=== PATIENT | male | born 1955 | race African-American/Black ===

== ENCOUNTER 2016-08-07 10:34 | Inpatient (IN) | payer MEDICARE, MEDICAID ==
[~2016-08-07] VITALS: Ht 170.2 cm; Wt 80.3 kg
[~2016-08-07 10:34] MED LIST: DIAZEPAM10 MG PO; HYDR-2666 PO; ONDA4TAB10 SL; OXYC-250 PO; TRAZ100T12 PO
--- NOTE | 2016-08-07 11:28 | ACF ---
Admission Forms Criteria CARDIOLOGY GRG Clinical Indications for Admission to Inpatient Care ( Place 'X' for any and all applicable criteria): Hospital admission is needed for appropriate care of the patient because of ANY ONE of the following (1): [ ] I. Hemodynamic instability as indicated by ALL of the following (1)(2)(3) (4)(5) [ ]a) Vital signs or other findings not as expected for chronic patient condition or baseline [ ]b) Instability indicated by ANY ONE of the following: [ ]i) Hypotension [ ]ii) Symptomatic Tachycardia unresponsive to treatment ( e.g., analgesia, fluids, sedation as indicated) [ ]iii) Inadequate perfusion indicated by ANY ONE of the following: [ ] 1) Lactic acidosis (> 2 mmol/L) [ ] 2) New abnormal capillary refill (> 3 seconds) [ ] 3) Reduced urine output [ ] 4) New altered mental status [ ]iv) Orthostatic vital sign changes unresponsive to treatment (e.g., fluids) [ ]v) IV inotropic or vasopressor medication required to maintain adequate blood pressure or perfusion [ ] II. Severe heart failure as indicated by ANY ONE of the following(17)(18) [ ]a) Respiratory distress [ ]b) Hypotension [ ]c) Anasarca (refractory to outpatient therapy) [ ]d) Cardiac arrhythmias of immediate concern [ ]e) Myocardial ischemia [ ] III. Cardiac arrhythmias or findings of immediate concern indicated by ANY ONE of the following (19)(20): [ ] a) Heart rhythms that are inherently dangerous or unstable indicated by ANY ONE of the following (21)(22)(23): [ ] i) Resuscitated ventricular fibrillation or cardiac arrest [ ] ii) Ventricular escape rhythm [ ] iii) Sustained ventricular tachycardia (30 seconds or more of ventricular rhythm at greater than 100 beats per minute) [ ] iv) Nonsustained ventricular tachycardia and ANY ONE of the following: [ ] 1) Suspected cardiac ischemia as cause or consequence of ventricular tachycardia [ ] 2) In setting of acute myocarditis [ ] b) Unstable cardiac conduction defects indicated by ANY ONE of the following(23)(24)(25) [ ] i) Type II second-degree atrioventricular block [ ]ii) Third-degree atrioventricular block [ ]iii) New-onset left bundle branch block with suspected myocardial ischemia [ ]c) Any heart rhythm and ANY ONE of the following (21)(22)(26)(27) (28) [ ] i) Continuous long-term ECG monitoring needed (e.g., initiation of drug requiring monitoring for more than 24 hours) [ ] ii) Patient has automatic implanted cardioverter defibrillator that is repeatedly firing, malfunctioning, or in need of immediate adjustment of settings beyond the scope of ambulatory or observation care [ ]d) Heart rhythms of concern due to ANY ONE of the following: [ ] i) Hypotension [ ] ii) Respiratory distress [ ] iii) Association with other significant symptoms (e.g., bradycardia with syncope or ongoing dizziness, supraventricular tachycardia with chest pain (14)(15)(17) [ ] IV. Monitoring for cardiac contusion beyond the scope of observation care needed [A](30)(31)(32) [ ] V. Surgical or device complication (e.g., valve replacement complication , pacemaker dysfunction) (35)(41)(44)(45)(46) [ ] . Inpatient palliative care needed. [B](49) Also use Inpatient Palliative Care Criteria [ ] VII. Nonbacterial thrombotic (marantic) endocarditis (36)(43)(47)(48) [X] VIII. Cardiology condition, symptom, or finding for which emergency and observation care has failed or are not considered appropriate. [ ] IX. Acute valvular disease requiring inpatient as indicated by ANY ONE of the following (41) [ ]a) Acute valvular regurgitation (42) [ ]b) Noninfectious valvulitis (43) [ ]c) Obstructive valve thrombosis [ ]d) Paravalvular leak [ ]e) Other significant valvular disorder remaining after emergency or observation level of care (as appropriate) [ ]X. Pericardial disease requiring inpatient treatment as indicated by ANY ONE of the following (33)(34)(35)(36)(37) [ ]a) Suspected tamponade (38)(39)(40) [ ]b) Hemopericardium [ ]c) Other significant pericardial disorder remaining after emergency or observation level of care (as appropriate) [ ] XI. Cardiac ischemia beyond scope of emergency and observation care. [ ] XII. Hypertension requiring inpatient treatment as indicated by ANY ONE of the following (6)(7)(8) [ ]a) SBP greater than 220 mm Hg or DBP greater than 120 mmHg despite treatment [ ]b) SBP greater than 140 mm Hg or DBP greater than 100 mm Hg with evidence of acute end organ damage as indicated by ANY ONE of the following [ ] i) Encephalopathy [ ] ii) Acute renal failure as indicated by new onset of ANY ONE of the following (9)(10)(11)(12)(13) [ ]1) 3-fold rise in serum creatinine from baseline [ ]2) Serum creatinine greater than 4 mg/dL ( 354 micromoles/L) with acute rise greater than 0.5 mg/dL (44.2 micromoles/L) [ ]3) Reduction of more than 75% in estimated glomerular filtration rate from baseline [ ]4) Estimated glomerular filtration rate less than 35 mL/min/1.73m2 (0.59 mL/sec/1.73m2) in child up to 18 years of age [ ]5) Cessation of urine output indicated by ALL of the following [ ]A. Adequate volume status [ ]B. Inadequate urine output as indicated by ANY ONE of the following [ ]a. Urine output less than 0.3 mL/kg/hr for 24 hours [ ]b. Anuria (urine output less than 0.1 mL/kg/hr) for 12 hours [ ] iii) Aortic dissection [ ] iv) Myocardial Ischemia [ ] v) Left ventricular heart failure [ ]vi) Retinal Hemorrhage [ ]vii) Other significant finding [ ]c) Hypertension in child requiring inpatient treatment as indicated by ALL of the following(14)(15)(16) [ ] i) Outpatient treatment not effective, not available, or not appropriate [ ]ii) SBP or DBP greater than 95th percentile for age [ ]iii) Evidence of acute end organ damage as indicated by ANY ONE of the following [ ]1) Altered mental status [ ]2) Acute renal failure as indicated by new onset of ANY ONE of the following(9)(10)(11)(12)(13) [ ]A. 3-fold rise in serum creatinine from baseline [ ]B. Serum creatinine greater than 4 mg/dL (354 micromoles/L) with acute rise greater than 0.5 mg/dL (44.2 micromoles/L) [ ]C. Reduction of more than 75% in estimated glomerular filtration rate from baseline [ ]D. Estimated glomerular filtration rate less than 35 mL/min/1.73m2 (0.59 mL/sec/1.73m2) in child up to 18 years of age [ ]E. Cessation of urine output indicated by ALL of the following [ ]a. Adequate volume status [ ]b. Inadequate urine output as indicated by ANY ONE of the following [ ]i) Urine output less than 0.3 mL/kg/hr for 24 hours [ ]ii) Anuria ( urine output less than 0.1 mL/kg/hr) for 12 hours [ ]3) Severe headache [ ]4) Visual disturbance [ ]5) Retinal hemorrhage [ ]6) Other significant finding [ ]XIII. Complications of transplanted heart indicated by ANY ONE of the following(61): [ ]a) Acute graft rejection requiring inpatient management (eg, intravenous immunosuppression)(62)(63) [ ]b) Acute graft heart failure indicated by ANY ONE of the following(64): [ ]i) Hemodynamic instability [ ]ii) Cardiac arrhythmias of immediate concern [ ]iii) Pulmonary edema that is very severe (eg, mechanical ventilation needed, imminent or likely, need for 100% oxygen to keep oxygen saturation above 90%) [ ]iv) Pulmonary edema that is persistent as indicated by ALL of the following: [ ]1) New need for oxygen therapy to keep oxygen saturation above 90% (or increased FiO2 need from baseline) [ ]2) Has not improved sufficiently with emergency department or observation care IV diuretics or other heart failure treatments[E] [ ]v) Altered mental status that is severe or persistent [ ]vi) Increased creatinine (new on laboratory test) with reduction of more than 50% in estimated glomerular filtration rate from baseline [ ]vii) Progressively (ongoing) rising creatinine (known from past laboratory test) with reduction of more than 25% in estimated glomerular filtration rate from baseline [ ]viii) Acute renal failure [ ]ix) Acute peripheral ischemia (eg, examination shows pulseless, cool, mottled, or cyanotic extremity) [ ]x) Pulmonary artery catheter monitoring needed [ ]xi) Other sign or symptom of heart failure requiring inpatient treatment (ie, too severe or not responsive to outpatient and observation care treatment) [ ]c) Infection requiring inpatient management (eg, Hemodynamic instability, need for intravenous antimicrobial treatment)(66)(67)(68)(69)(70) [ ]d) Cardiac allograft vasculopathy requiring inpatient management ( eg evidence of cardiac ischemia)(71) [ ]e) Other complication of transplanted heart (eg, stroke, severe pulmonary hypertension, severe valvular dysfunction) requiring inpatient management(72) The original [facility] content created by [facility] has been revised. The portions of the content which have been revised are identified through the use of italic text or in bold, and [facility] has neither reviewed nor approved the modified material. All other unmodified content is copyright [facility]. Please see references footnoted in the original [facility] edition 2016 Admission Criteria Met?: Yes DHARMESH LONG Aug 07, 2016 11:28
[2016-08-07] MEDS ORDERED: MORPHINE SULFATE 10 MG/ML VIAL. IV ONE (11:30)
[2016-08-07] MEDS ORDERED: ASPIRIN 325 MG TABLET PO ONE (11:30)
--- NOTE | 2016-08-07 11:38 | RAD ---
Exam: AP portable chest. History: Chest pain beginning this morning, smoking history. Comparison: 01/13/2014. Findings: The heart and mediastinal structures are within normal limits for size. Lungs are without infiltrate. No pneumothorax or pleural effusion is appreciated. Old granulomatous disease of the chest is noted. Impression: 1. No acute cardiopulmonary process.
[2016-08-07 11:50] LABS: BASO % 0 % (0-3); EOS % 2 % (0-3); HEMATOCRIT 41.1 % (39.0-53.0); HEMOGLOBIN 13.7 g/dL (13.0-17.5); LYMPH # 1.1 x10^3/uL (1.0-4.8); LYMPH % 10 % (24-48); MEAN CORPUSCULAR HEMOGLOBIN 31 pg (25-35); MEAN CORPUSCULAR HGB CONC 33 g/dL (31-37); MEAN CORPUSCULAR VOLUME 93 fL (79-100); MONO % 6 % (0-9); NEUT % 82 % (31-73); PLATELET COUNT 228 x10^3/uL (140-400); RED BLOOD COUNT 4.43 x10^6/uL (4.30-5.70); RED CELL DISTRIBUTION WIDTH 13.3 % (11.5-14.5); WHITE BLOOD COUNT 10.8 x10^3/uL (4.0-11.0)
--- NOTE | 2016-08-07 11:54 | PHYS DOC ---
Past Medical History Past Medical History: Other Additional Past Medical Histor: chronic back pain Past Surgical History: Lumbar Laminectomy, Other Additional Past Surgical Histo: back surgery- hardware, inguinal hernia Alcohol Use: Rarely Drug Use: Marijuana Adult General Chief Complaint Chief Complaint: Neck Pain HPI HPI Patient is a 61 year old male with history of lumbar laminectomy done in April 2016 presents today with an 8 out of 10 right lateral neck pain, 8/10 sharp bilateral chest pain, and left groin pain that began yesterday around 8 PM when he went to bed. Patient denies any known injury. He states his pain is worse on the neck when he moves his neck [id number]. Patient denies his chest pain radiating to or from the neck. Patient denies any shortness of breath. Patient states he has history of left inguinal hernia which has been repaired twice before. Patient states he has no PCP. He states he follows up with a neurosurgeon at [facility] that did his back. He states he is currently on oxycodone, trazodone, and baclofen, which she took last night. He states his pain to the neck chest and groin has been exacerbated by lifting laundry as well as taking care of his son with cerebral palsy. Patient has been very insistent on getting pain medicine. Review of Systems Review of Systems Constitutional: Denies fever or chills [] Eyes: Denies change in visual acuity, redness, or eye pain [] HENT: Denies nasal congestion or sore throat [] Respiratory: Denies cough or shortness of breath [] Cardiovascular: Bilateral chest pain GI: Denies abdominal pain, nausea, vomiting, bloody stools or diarrhea [] : Left groin pain Musculoskeletal: Right lateral neck pain Integument: Denies rash or skin lesions [] Neurologic: Denies headache, focal weakness or sensory changes [] Endocrine: Denies polyuria or polydipsia [] Current Medications Current Medications Current Medications Medications (Trade) Dose Ordered Sig/Michael Start Time Stop Time Status Last Admin Dose Admin Aspirin (Prem Aspirin) 325 mg 1X ONCE 08/07/16 11:30 08/07/16 11:31 DC 08/07/16 11:45 325 MG Morphine Sulfate 5 mg 1X ONCE 08/07/16 11:30 08/07/16 11:31 DC 08/07/16 11:46 5 MG Allergies Allergies Allergies Coded Allergies Type Severity Reaction Last Updated Verified No Known Drug Allergies 01/13/14 No Physical Exam Physical Exam Constitutional: Well developed, well nourished, no acute distress, non-toxic appearance. [] HENT: Normocephalic, atraumatic, bilateral external ears normal, oropharynx moist, no oral exudates, nose normal. [] Eyes: PERRLA, EOMI, conjunctiva normal, no discharge. [] Neck: Normal range of motion, paraspinal muscle tenderness on palpation of the right lateral cervical spine, no midline tenderness to the cervical spine, supple, no stridor. [] Cardiovascular:Heart rate regular rhythm, no murmur [] Lungs & Thorax: Bilateral breath sounds clear to auscultation [] Abdomen: Bowel sounds normal, soft, no tenderness, no masses, no pulsatile masses. [] Male exam: Groin pain difficult because patient will not get up and stand for exam. No obvious abnormalities noted on physical assessment of the groin. Skin: Warm, dry, no erythema, no rash. [] Back: No tenderness, no CVA tenderness. [] Extremities: No tenderness, no cyanosis, no clubbing, ROM intact, no edema. [] Neurologic: Alert and oriented X 3, normal motor function, normal sensory function, no focal deficits noted. [] Psychologic: Affect normal, judgement normal, mood normal. [] Current Patient Data Vital Signs Vital Signs Date Time Temp Pulse Resp B/P Pulse Ox O2 Delivery O2 Flow Rate FiO2 08/07/16 10:58 97.8 72 22 169/98 98 Room Air 97.8 Lab Values Laboratory Tests Test 08/07/16 11:12 White Blood Count 10.8x10^3/uL (4.0-11.0) Red Blood Count 4.43x10^6/uL (4.30-5.70) Hemoglobin 13.7g/dL (13.0-17.5) Hematocrit 41.1% (39.0-53.0) Mean Corpuscular Volume 93fL (79-100) Mean Corpuscular Hemoglobin 31pg (25-35) Mean Corpuscular Hemoglobin Concent 33g/dL (31-37) Red Cell Distribution Width 13.3% (11.5-14.5) Platelet Count 228x10^3/uL (140-400) Neutrophils (%) (Auto) 82% (31-73) H Lymphocytes (%) (Auto) 10% (24-48) L Monocytes (%) (Auto) 6% (0-9) Eosinophils (%) (Auto) 2% (0-3) Basophils (%) (Auto) 0% (0-3) Neutrophils # (Auto) 8.8x10^3uL (1.8-7.7) H Lymphocytes # (Auto) 1.1x10^3/uL (1.0-4.8) Monocytes # (Auto) 0.6x10^3/uL (0.0-1.1) Eosinophils # (Auto) 0.2x10^3/uL (0.0-0.7) Basophils # (Auto) 0.0x10^3/uL (0.0-0.2) Prothrombin Time 13.2SEC (11.7-14.0) Prothrombin Time INR 1.1 (0.8-1.1) Sodium Level 142mmol/L (136-145) Potassium Level 3.6mmol/L (3.5-5.1) Chloride Level 108mmol/L (98-107) H Carbon Dioxide Level 26mmol/L (21-32) Anion Gap 8 (6-14) Blood Urea Nitrogen 6mg/dL (8-26) L Creatinine 0.8mg/dL (0.7-1.3) Estimated GFR (Cockcroft-Gault) 119.7 BUN/Creatinine Ratio 8 (6-20) Glucose Level 106mg/dL (70-99) H Calcium Level 8.7mg/dL (8.5-10.1) Total Bilirubin 0.3mg/dL (0.2-1.0) Aspartate Amino Transferase (AST) 12U/L (15-37) L Alanine Aminotransferase (ALT) 18U/L (16-63) Alkaline Phosphatase 76U/L (46-116) Creatine Kinase 148U/L (39-308) Creatine Kinase MB (Mass) 0.8ng/mL (0.0-3.6) Creatine Kinase MB Relative Index 0.5% (0-4) Troponin I Quantitative < 0.017ng/mL (0.000-0.055) RA-Eut-M-Type Natriuretic Peptide 29pg/mL (0-124) Total Protein 7.0g/dL (6.4-8.2) Albumin 3.3g/dL (3.4-5.0) L Albumin/Globulin Ratio 0.9 (1.0-1.7) L Lipase 457U/L (73-393) H Laboratory Tests 08/07/16 11:12 Laboratory Tests 08/07/16 11:12 EKG EKG [] Radiology/Procedures Radiology/Procedures []PROCEDURE: TESTICULAR/SCROTUM EXAM: Testicular sonogram. HISTORY: Left groin pain. TECHNIQUE: Grayscale and color Doppler sonographic imaging of the testes with spectral waveform analysis was performed. COMPARISON: None. FINDINGS: The right testis measures 3.3 x 1.9 x 3.3 cm. The left testis measures 3.7 x 3.3 x 1.8 cm. There is normal symmetric blood flow within both testes. No focal testicular parenchymal lesion is seen. There is slight asymmetry in the size of the left greater than right epididymis. There is symmetric blood flow within the epididymides. There are bilateral epididymal head cysts, measuring 4 mm on the right and 5 mm of the left. There is a trace right hydrocele. There is no varicocele. IMPRESSION: 1. Slight asymmetry in the size of the left greater than right epididymides. There is no corresponding increased blood flow to suggest epididymitis. 2. Bilateral epididymal head cysts. 3. Trace right hydrocele. DICTATED and SIGNED BY: ANASTASIA VIDALES MD DATE: 08/07/16 1246 CC: IRVING ELENA APRN; NO PCP ~ Course & Med Decision Making Course & Med Decision Making Pertinent Labs and Imaging studies reviewed. (See chart for details) Patient is in the ED with multiple complaints including right lateral neck pain , the lateral chest pain, and left groin pain since last night. Patient has been very insistent on getting pain medicine since he arrived to the ED. I even told him priority will be getting aspirin. 11:[address] Carrasco, sinus rate them, incomplete right bundle branch block, heart rate 70, QRS interval 106, no STEMI. CBC no acute findings, CMP with no acute findings, lipase 457. Patient has no abdominal pain. He has not given us urine yet Chest x-ray interpreted by radiologist as negative for any acute findings. Scrotal ultrasound is noted for hydrocele Vitals on arrival to the ED temperature 97.8, heart rate 72, respiration 22 on room air, O2 sats 98% on room air, blood pressure 169/98, patient denies any history of hypertension. Considering his age and complaint of chest pain, we admitted patient to rule out any cardiac origin for his pain 13:45 consulted with who accepted patient for admission 13:47 spoke with Linsey Haley ADOPTION SPECIALIST for cardiology who will follow-up with patient Dragon Disclaimer Dragoral Disclaimer This electronic medical record was generated, in whole or in part, using a voice recognition dictation system. Departure Departure Impression: Primary Impression: Chest pain of uncertain etiology Additional Impressions: Neck pain, acute Hydrocele in adult Disposition: 09 ADMITTED INPATIENT Admitting Physician: Daisy Andrea Referrals: NO PCP (PCP) Problem Qualifiers IRVING ELENA APRN Aug 07, 2016 11:54
[2016-08-07 12:05] LABS: CALCIUM 8.7 mg/dL (8.5-10.1); CREATININE 0.8 mg/dL (0.7-1.3); GFR 119.7; POTASSIUM 3.6 mmol/L (3.5-5.1)
[2016-08-07 12:07] LABS: INR 1.1 (0.8-1.1); PROTHROMBIN TIME PATIENT 13.2 SEC (11.7-14.0)
[2016-08-07 12:10] LABS: ALBUMIN 3.3 g/dL (3.4-5.0); ALBUMIN/GLOBULIN RATIO 0.9 (1.0-1.7); TOTAL BILIRUBIN 0.3 mg/dL (0.2-1.0)
[2016-08-07 12:13] LABS: CKMB INDEX 0.5 % (0-4); CKMB MASS 0.8 ng/mL (0.0-3.6)
--- NOTE | 2016-08-07 12:57 | RAD ---
EXAM: Testicular sonogram. HISTORY: Left groin pain. TECHNIQUE: Grayscale and color Doppler sonographic imaging of the testes with spectral waveform analysis was performed. COMPARISON: None. FINDINGS: The right testis measures 3.3 x 1.9 x 3.3 cm. The left testis measures 3.7 x 3.3 x 1.8 cm. There is normal symmetric blood flow within both testes. No focal testicular parenchymal lesion is seen. There is slight asymmetry in the size of the left greater than right epididymis. There is symmetric blood flow within the epididymides. There are bilateral epididymal head cysts, measuring 4 mm on the right and 5 mm of the left. There is a trace right hydrocele. There is no varicocele. IMPRESSION: 1. Slight asymmetry in the size of the left greater than right epididymides. There is no corresponding increased blood flow to suggest epididymitis. 2. Bilateral epididymal head cysts. 3. Trace right hydrocele.
--- NOTE | 2016-08-07 13:46 | EKG ---
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
[2016-08-07] MEDS ORDERED: ONDANSETRON PF 4 MG/2 ML VIAL. IV PRN ×2 (14:15→14:52)
[2016-08-07] MEDS ORDERED: ACETAMINOPHEN 325 MG TABLET. PO PRN (14:15)
[2016-08-07] MEDS ORDERED: HYDROCODONE/APAP 5/325MG TABLET. PO PRN (15:00)
[2016-08-07] MEDS ORDERED: ONDANSETRON ODT 4 MG TAB.RAPDIS PO PRN (15:00)
--- NOTE | 2016-08-07 15:01 | PDOC1 ---
History and Physical Date of Admission Date of Admission DATE: 08/07/16 TIME: 14:55 Identification/Chief Complaint Chief Complaint groin pain, chest pain, neck pain History of Present Illness History of Present Illness 61 y.o AA male who just had laminectomy at not long ago comes to ER complaining of chest pain, neck pain and left groin pain. NO known CAD, HTN or DM, 1 tobacco lasts him 2 days, occasional drinker, He has some chronic opiates at home, those are his only meds. CArdiac work up at er level is neg, CASTELLON scrotum was done bec of groin pain which was unimpressive, On palpation, left hip - tender to touch, no dx of OA Pt admitted for ACS r.o Past Medical History Musculoskeletal: low back pain Past Surgical History Past Surgical History: Other (laminectomy ) Family History Family History: Heart Disease, High Cholestrol, Hypertension Social History Smoke: <1 pack per day ALCOHOL: occassional Drugs: None Current Problem List Problem List Problems Medical Problems: (1) Chest pain Status: Acute (2) Chest pain of uncertain etiology Status: Acute (3) Hydrocele in adult Status: Acute (4) Neck pain, acute Status: Acute Problems: Current Medications Current Medications Current Medications Aspirin (Prem Aspirin) 325 mg 1X ONCE PO Last administered on 08/07/16 11:45 ; Start 08/07/16 at 11:30; Stop 08/07/16 at 11:31; Status DC Morphine Sulfate 5 mg 1X ONCE IV Last administered on 08/07/16 11:46; Start 08/07/16 at 11:30; Stop 08/07/16 at 11:31; Status DC Ondansetron HCl (Zofran) 4 mg PRN Q8HRS PRN IV NAUSEA/VOMITING; Start 08/07/16 at 14:15; Stop 08/08/16 at 14:14 Morphine Sulfate 4 mg PRN Q2HR PRN IV PAIN; Start 08/07/16 at 14:15; Stop 08/08 at 14:14 Acetaminophen (Tylenol) 650 mg PRN Q4HRS PRN PO FEVER; Start 08/07/16 at 14:15 ; Stop 08/08/16 at 14:14 Active Scripts Active Hydrocodone-Apap 5-325 (Hydrocodone Bit/Acetaminophen) 1 Each Tablet 1 Tab PO PRN Q6HRS PRN Zofran Odt (Ondansetron) 4 Mg Tab.rapdis 1 Tab SL Q8HRS Reported Percocet 10-325 Mg Tablet (Oxycodone/Acetaminophen) 1 Each Tablet 1 Each PO Trazodone Hcl 100 Mg Tablet 100 Mg PO Diazepam 10 Mg Tablet 10 Mg PO Allergies Allergies: Coded Allergies: No Known Drug Allergies (Unverified , 01/13/14) ROS Review of System all else in HPI,none rest ROS Physical Exam General: Alert, Oriented X3, Cooperative, No acute distress HEENT: Atraumatic, EOMI Lungs: Clear to auscultation, Normal air movement Heart: S1S2, RRR, no thrills, no rubs, no gallops, no murmurs Cardiovascular: S1 Abdomen: Normal bowel sounds, Soft, No tenderness, No hepatosplenomegaly, No masses Male Genitals Exam: normal genitalia, normal prostate PELVIC: Other (tender to palpation left hip ) Extremities: No clubbing, No cyanosis, No edema, Normal pulses, No tenderness/ swelling Skin: No rashes, No breakdown, No significant lesion Neuro: Normal gait, Normal speech, Strength at 5/5 X4 ext, Normal tone, Sensation intact, Cranial nerves 3-12 NL, Reflexes 2+ Vitals Vitals Vital Signs Date Time Temp Pulse Resp B/P Pulse Ox O2 Delivery O2 Flow Rate FiO2 08/07/16 10:58 97.8 72 22 169/98 98 Room Air 97.8 Labs Labs Laboratory Tests Test 08/07/16 11:12 White Blood Count 10.8x10^3/uL (4.0-11.0) Red Blood Count 4.43x10^6/uL (4.30-5.70) Hemoglobin 13.7g/dL (13.0-17.5) Hematocrit 41.1% (39.0-53.0) Mean Corpuscular Volume 93fL (79-100) Mean Corpuscular Hemoglobin 31pg (25-35) Mean Corpuscular Hemoglobin Concent 33g/dL (31-37) Red Cell Distribution Width 13.3% (11.5-14.5) Platelet Count 228x10^3/uL (140-400) Neutrophils (%) (Auto) 82% (31-73) Lymphocytes (%) (Auto) 10% (24-48) Monocytes (%) (Auto) 6% (0-9) Eosinophils (%) (Auto) 2% (0-3) Basophils (%) (Auto) 0% (0-3) Neutrophils # (Auto) 8.8x10^3uL (1.8-7.7) Lymphocytes # (Auto) 1.1x10^3/uL (1.0-4.8) Monocytes # (Auto) 0.6x10^3/uL (0.0-1.1) Eosinophils # (Auto) 0.2x10^3/uL (0.0-0.7) Basophils # (Auto) 0.0x10^3/uL (0.0-0.2) Prothrombin Time 13.2SEC (11.7-14.0) Prothromb Time International Ratio 1.1 (0.8-1.1) Sodium Level 142mmol/L (136-145) Potassium Level 3.6mmol/L (3.5-5.1) Chloride Level 108mmol/L (98-107) Carbon Dioxide Level 26mmol/L (21-32) Anion Gap 8 (6-14) Blood Urea Nitrogen 6mg/dL (8-26) Creatinine 0.8mg/dL (0.7-1.3) Estimated GFR (Cockcroft-Gault) 119.7 BUN/Creatinine Ratio 8 (6-20) Glucose Level 106mg/dL (70-99) Calcium Level 8.7mg/dL (8.5-10.1) Total Bilirubin 0.3mg/dL (0.2-1.0) Aspartate Amino Transf (AST/SGOT) 12U/L (15-37) Alanine Aminotransferase (ALT/SGPT) 18U/L (16-63) Alkaline Phosphatase 76U/L (46-116) Creatine Kinase 148U/L (39-308) Creatine Kinase MB (Mass) 0.8ng/mL (0.0-3.6) Creatine Kinase MB Relative Index 0.5% (0-4) Troponin I Quantitative < 0.017ng/mL (0.000-0.055) JE-Pkv-V-Type Natriuretic Peptide 29pg/mL (0-124) Total Protein 7.0g/dL (6.4-8.2) Albumin 3.3g/dL (3.4-5.0) Albumin/Globulin Ratio 0.9 (1.0-1.7) Lipase 457U/L (73-393) Laboratory Tests Test 08/07/16 11:12 White Blood Count 10.8x10^3/uL (4.0-11.0) Red Blood Count 4.43x10^6/uL (4.30-5.70) Hemoglobin 13.7g/dL (13.0-17.5) Hematocrit 41.1% (39.0-53.0) Mean Corpuscular Volume 93fL (79-100) Mean Corpuscular Hemoglobin 31pg (25-35) Mean Corpuscular Hemoglobin Concent 33g/dL (31-37) Red Cell Distribution Width 13.3% (11.5-14.5) Platelet Count 228x10^3/uL (140-400) Neutrophils (%) (Auto) 82% (31-73) Lymphocytes (%) (Auto) 10% (24-48) Monocytes (%) (Auto) 6% (0-9) Eosinophils (%) (Auto) 2% (0-3) Basophils (%) (Auto) 0% (0-3) Neutrophils # (Auto) 8.8x10^3uL (1.8-7.7) Lymphocytes # (Auto) 1.1x10^3/uL (1.0-4.8) Monocytes # (Auto) 0.6x10^3/uL (0.0-1.1) Eosinophils # (Auto) 0.2x10^3/uL (0.0-0.7) Basophils # (Auto) 0.0x10^3/uL (0.0-0.2) Prothrombin Time 13.2SEC (11.7-14.0) Prothromb Time International Ratio 1.1 (0.8-1.1) Sodium Level 142mmol/L (136-145) Potassium Level 3.6mmol/L (3.5-5.1) Chloride Level 108mmol/L (98-107) Carbon Dioxide Level 26mmol/L (21-32) Anion Gap 8 (6-14) Blood Urea Nitrogen 6mg/dL (8-26) Creatinine 0.8mg/dL (0.7-1.3) Estimated GFR (Cockcroft-Gault) 119.7 BUN/Creatinine Ratio 8 (6-20) Glucose Level 106mg/dL (70-99) Calcium Level 8.7mg/dL (8.5-10.1) Total Bilirubin 0.3mg/dL (0.2-1.0) Aspartate Amino Transf (AST/SGOT) 12U/L (15-37) Alanine Aminotransferase (ALT/SGPT) 18U/L (16-63) Alkaline Phosphatase 76U/L (46-116) Creatine Kinase 148U/L (39-308) Creatine Kinase MB (Mass) 0.8ng/mL (0.0-3.6) Creatine Kinase MB Relative Index 0.5% (0-4) Troponin I Quantitative < 0.017ng/mL (0.000-0.055) QB-Wdp-W-Type Natriuretic Peptide 29pg/mL (0-124) Total Protein 7.0g/dL (6.4-8.2) Albumin 3.3g/dL (3.4-5.0) Albumin/Globulin Ratio 0.9 (1.0-1.7) Lipase 457U/L (73-393) VTE Prophylaxis Ordered VTE Prophylaxis Devices: Yes VTE Pharmacological Prophylaxi: Yes Assessment/Plan Assessment/Plan 1, Atypical chest pain in an adult at rest - unlikely ACS , but admitted for rule out 2. SMoker 3. Left hip pain and groin pain - most of the times hip OA manifests as groin pain, will check basic xray, trial lidoderm, PT/OT 4 overweight 5. Lumbago with recent laminectomy PLAN Cycle CE Consult cards Resume home meds. PT/O Check hip xray Trial lidoderm patch or capsaicin cream Seen at [facility] MD Aug 07, 2016 15:01
[2016-08-07] MEDS: MORPHINE SULFATE 4 MG/ML DISP.SYRIN. IV PRN ×2 (15:16→18:36)
--- NOTE | 2016-08-07 15:19 | RAD ---
EXAM: Left hip, 2 views. HISTORY: Pain. COMPARISON: 12/01/2012. FINDINGS: Frontal and frog-leg views of the left hip are obtained. There is curvilinear sclerosis within the superior left greater than right femoral heads, most images of of avascular necrosis. No cortical collapse is seen. There is fusion and instrumentation at the lumbosacral junction. A left S1 screw is not attached to a vertical viktor. IMPRESSION: 1. 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 2. Instrumented fusion at the lumbosacral junction. A left S1 screw does is not attached to a vertical viktor.
--- NOTE | 2016-08-07 15:30 | PDOC2 ---
RICHAR SAHU VP OF PRODUCT 08/07/16 1530: CARDIAC CONSULT DATE OF CONSULT Date of Consult DATE: 08/07/16 TIME: 15:05 REASON FOR CONSULT Reason for Consult: Chest pain REFERRING PHYSICIAN Referring Physician: Lan SOURCE Source: Chart review, Patient HISTORY OF PRESENT ILLNESS HISTORY OF PRESENT ILLNESS This is a 61 yo AA male admitted for multiple complaints. All of which started about 2 days ago. Reports right neck pain and anterior chest pain sharp in consistency and duplicated easily with palpation. Reports that he has chronic pain and takes percocet due to chronic back pain. He just had his 2nd lumbar surgery notable for lumbar fusion about 2 months ago which he did well. He actually fell about a month ago and was reevaluated by his neurosurgery and was ok accdg to him. Reports that his just had stroke and also he has a son that has CP. As far as activity tolerance he has been doing well but exertion sena it has significantly increased as far as lifting with his son and . Also he has been lifting laundry. Concurrent with his chest pain he also abdominal pain. He has diffuse tenderness throughout but mainly localized to his LLQ with mild palpation. This also started 2 days ago and may have had some chills but no documented fever. Verbalized nausea and vomiting but no blood. In the last 24 hours he has vomited twice and had 3 hard stools and last one was runny. Denies any blood or dark stools. Denies any SOA, palpitations, had some dizziness but at the same time he has not drank much the whole day due to his abd pain and nausea. Denies any CAD, VTE, falls, syncope, CVA, WHITE, or any recent injury. Denies chronic NSAID use and only takes percocet. PAST MEDICAL HISTORY Cardiovascular: No pertinent hx Pulmonary: No pertinent hx CENTRAL NERVOUS SYSTEM: Other (No pertinent history) GI: Diverticulosis, Other (inguinal hernia) Heme/Onc: No pertinent hx Hepatobiliary: No pertinent hx Psych: No pertinent hx Musculoskeletal: low back pain, Osteoarthritis Rheumatologic: No pertinent hx Infectious disease: No pertinent hx ENT: No pertinent hx Renal/: No pertinent hx Endocrine: No pertinent hx Dermatology: No pertinent hx PAST SURGICAL HISTORY Past Surgical History: Hernia Repair (inguinal bilateral ), Other (lumbar surgery x2 with the last one with fusion 05/2016) FAMILY HISTORY Family History: Kidney Disease (mother) SOCIAL HISTORY Smoke: <1 pack per day (cigars in the last 4 yrs otherwise 30 pk yr of regular tobacco) ALCOHOL: occassional Drugs: Marijuana Lives: with Family CURRENT MEDICATIONS CURRENT MEDICATIONS Current Medications Medications (Trade) Dose Ordered Sig/Michael Route PRN Reason Start Time Stop Time Status Last Admin Dose Admin Aspirin (Prem Aspirin) 325 mg 1X ONCE PO 08/07/16 11:30 08/07/16 11:31 DC 08/07/16 11:45 Morphine Sulfate 5 mg 1X ONCE IV 08/07/16 11:30 08/07/16 11:31 DC 08/07/16 11:46 ALLERGIES ALLERGIES: Coded Allergies: No Known Drug Allergies (Unverified , 01/13/14) ROS Review of System 14 point ROS evaluated with pertinent positives noted per HPI PHYSICAL EXAM General: Alert, Oriented X3, Cooperative, mild distress HEENT: Atraumatic, Mucous membr. moist/pink Lungs: Clear to auscultation, Normal air movement Abdomen: Soft, Other (hyperactive bowel sounds to all quads; Diffuse abd tenderness localazing with more intensity to LLQ. ) Extremities: No cyanosis, No edema Skin: No breakdown, No significant lesion Neuro: Normal speech, Sensation intact Psych/Mental Status: Mental status NL, Mood NL MUSCULOSKELETAL: Osteoarthritic changes both hands VITALS VITALS Vital Signs Date Time Temp Pulse Resp B/P Pulse Ox O2 Delivery O2 Flow Rate FiO2 08/07/16 10:58 97.8 72 22 169/98 98 Room Air 97.8 LABS Lab: Laboratory Tests Test 08/07/16 11:12 White Blood Count 10.8x10^3/uL (4.0-11.0) Red Blood Count 4.43x10^6/uL (4.30-5.70) Hemoglobin 13.7g/dL (13.0-17.5) Hematocrit 41.1% (39.0-53.0) Mean Corpuscular Volume 93fL (79-100) Mean Corpuscular Hemoglobin 31pg (25-35) Mean Corpuscular Hemoglobin Concent 33g/dL (31-37) Red Cell Distribution Width 13.3% (11.5-14.5) Platelet Count 228x10^3/uL (140-400) Neutrophils (%) (Auto) 82% (31-73) Lymphocytes (%) (Auto) 10% (24-48) Monocytes (%) (Auto) 6% (0-9) Eosinophils (%) (Auto) 2% (0-3) Basophils (%) (Auto) 0% (0-3) Neutrophils # (Auto) 8.8x10^3uL (1.8-7.7) Lymphocytes # (Auto) 1.1x10^3/uL (1.0-4.8) Monocytes # (Auto) 0.6x10^3/uL (0.0-1.1) Eosinophils # (Auto) 0.2x10^3/uL (0.0-0.7) Basophils # (Auto) 0.0x10^3/uL (0.0-0.2) Prothrombin Time 13.2SEC (11.7-14.0) Prothromb Time International Ratio 1.1 (0.8-1.1) Sodium Level 142mmol/L (136-145) Potassium Level 3.6mmol/L (3.5-5.1) Chloride Level 108mmol/L (98-107) Carbon Dioxide Level 26mmol/L (21-32) Anion Gap 8 (6-14) Blood Urea Nitrogen 6mg/dL (8-26) Creatinine 0.8mg/dL (0.7-1.3) Estimated GFR (Cockcroft-Gault) 119.7 BUN/Creatinine Ratio 8 (6-20) Glucose Level 106mg/dL (70-99) Calcium Level 8.7mg/dL (8.5-10.1) Total Bilirubin 0.3mg/dL (0.2-1.0) Aspartate Amino Transf (AST/SGOT) 12U/L (15-37) Alanine Aminotransferase (ALT/SGPT) 18U/L (16-63) Alkaline Phosphatase 76U/L (46-116) Creatine Kinase 148U/L (39-308) Creatine Kinase MB (Mass) 0.8ng/mL (0.0-3.6) Creatine Kinase MB Relative Index 0.5% (0-4) Troponin I Quantitative < 0.017ng/mL (0.000-0.055) IY-Dqi-U-Type Natriuretic Peptide 29pg/mL (0-124) Total Protein 7.0g/dL (6.4-8.2) Albumin 3.3g/dL (3.4-5.0) Albumin/Globulin Ratio 0.9 (1.0-1.7) Lipase 457U/L (73-393) ASSESSMENT/PLAN ASSESSMENT/PLAN 1. Atypical CP: doubt ACS. Initial troponin normal, continue to trend. EKG SR, no acute changes. Suspect MSK with well documented increased lifting with chronic back pain. No prior cardiac workup. TTE to note baseline. If no significant changes then no further cardiac workup. 2. Abdominal pain. localized LLQ pain, likely inguinal lymphadenopathy, unable to palpate well due to significant tenderness. Possible STI. UA pending. Sono revealed possible epididymitis. WBC normal but hx of diverticulosis. Positive for loose stools and vomiting. Recommend CT abd/pevis and will defer workup to PCP 3. Chronic back pain: successful lumbar fusion about 2 months ago at . 4. HTN? elevated likely from pain. Will trend and evaluate for need of antiHTN. 5. Tobaccoism: 30 pk yr regular tobacco then quit and switch to cigars for 4 yrs now. 6. Substance abuse: reports uses it for pain. Problems: BEBA LOVETT MD 08/08/16 1640: CARDIAC CONSULT ALLERGIES ALLERGIES: Coded Allergies: No Known Drug Allergies (Unverified , 01/13/14) ASSESSMENT/PLAN ASSESSMENT/PLAN Patient seen and examined. Agree with above nurse practitioner note. Patient seen on 08/08/2016. 61-year-old male presenting with noncardiac chest pain. Echocardiogram is unremarkable. Blood pressure likely elevated from his pain. Discussed tobacco cessation. Continue supportive care from a cardiac perspective. No further testing necessary at this time. Thank you for this consultation. We will follow along peripherally. Problems: RICHAR SAHU APRN Aug 07, 2016 15:30 BEBA LOVETT MD Aug 08, 2016 16:40
[2016-08-07 16:10] VITALS: BP 134/73
[2016-08-07] MEDS: OXYCODONE/APAP 10/325 TABLET. PO PRN (16:31)
[2016-08-07] MEDS: LIDOCAINE (700MG/PATCH) PATCH. TD SCH (16:33)
[2016-08-07] MEDS ORDERED: BACL10TA PO (18:15)
[2016-08-07 19:00] VITALS: BP 151/79
[2016-08-07] MEDS: traZODone 100 MG TABLET. PO SCH (22:16)
[2016-08-07 23:45] VITALS: BP 140/89
[2016-08-08] VITALS (7 sets, daily range): BP systolic 125–149; BP diastolic 69–75
[2016-08-08 02:40] LABS: BASO % 0 % (0-3); EOS % 3 % (0-3); HEMATOCRIT 38.9 % (39.0-53.0); HEMOGLOBIN 12.6 g/dL (13.0-17.5); LYMPH # 1.5 x10^3/uL (1.0-4.8); LYMPH % 15 % (24-48); MEAN CORPUSCULAR HEMOGLOBIN 31 pg (25-35); MEAN CORPUSCULAR HGB CONC 32 g/dL (31-37); MEAN CORPUSCULAR VOLUME 96 fL (79-100); MONO % 7 % (0-9); NEUT % 76 % (31-73); PLATELET COUNT 202 x10^3/uL (140-400); RED BLOOD COUNT 4.07 x10^6/uL (4.30-5.70); RED CELL DISTRIBUTION WIDTH 13.6 % (11.5-14.5)
[2016-08-08] MEDS: OXYCODONE/APAP 10/325 TABLET. PO PRN ×4 (02:50→18:50)
[2016-08-08 03:25] LABS: ALBUMIN 2.9 g/dL (3.4-5.0); ALBUMIN/GLOBULIN RATIO 0.9 (1.0-1.7); CALCIUM 8.5 mg/dL (8.5-10.1); CREATININE 0.8 mg/dL (0.7-1.3); GFR 119.7; POTASSIUM 3.6 mmol/L (3.5-5.1); TOTAL BILIRUBIN 0.5 mg/dL (0.2-1.0); TOTAL PROTEIN 6.3 g/dL (6.4-8.2)
--- NOTE | 2016-08-08 07:47 | EKG ---
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
[2016-08-08] MEDS: MORPHINE SULFATE 4 MG/ML DISP.SYRIN. IV PRN ×2 (08:16→12:39)
[2016-08-08] MEDS: LIDOCAINE (700MG/PATCH) PATCH. TD SCH (08:17)
--- NOTE | 2016-08-08 08:27 | CARD ---
APPROVED REPORT EXAM: Two-dimensional and M-mode echocardiogram with Doppler and color Doppler. Other Information Quality : GoodHR: 67bpm Rhythm : NSR INDICATION Chest Pain 2D DIMENSIONS RVDd2.3 (2.9-3.5cm)Left Atrium(2D)3.9 (1.6-4.0cm) IVSd1.3 (0.7-1.1cm)Aortic Root(2D)3.5 (2.0-3.7cm) LVDd4.0 (3.9-5.9cm)LVOT Diameter2.3 (1.8-2.4cm) PWd1.3 (0.7-1.1cm)LVDs2.6 (2.5-4.0cm) FS (%) 35.5 %SV44.9 ml LVEF(%)65.6 (>50%) Aortic Valve AoV Peak Bigg.200.9cm/sAoV VTI41.1cm AO Peak GR.16.1mmHgLVOT Peak Bigg.127.6cm/s AO Mean GR.8mmHgAVA (VMAX)2.68cm2 AI P 1/2 Zcil950xk Mitral Valve MV E Ubaioamt708.9cm/sMV DECEL [id number] MV A Zoioywof857.2cm/sE/A Ratio0.8 MV A [id number] Pulmonary Valve PV Peak Yzfgjzph23.0cm/s Pulmonary Vein S1 Wzepemhw79.0cm/sD2 Ghacymje23.7cm/s PVa [id number] LEFT VENTRICLE The left ventricle is normal size. There is mild concentric left ventricular hypertrophy. The left ve ntricular systolic function is normal and the ejection fraction is within normal range. The Ejection Fraction is 60-65%. There is normal LV segmental wall motion. Transmitral Doppler flow pattern is Gra de I-abnormal relaxation pattern. RIGHT VENTRICLE The right ventricle is normal size. There is normal right ventricular wall thickness. The right ventr icular systolic function is normal. ATRIA The left atrium size is normal. The right atrium size is normal. The interatrial septum is intact wit h no evidence for an atrial septal defect or patent foramen ovale as noted on 2-D or Doppler imaging. AORTIC VALVE The aortic valve is normal in structure and function. Doppler and Color Flow revealed trace to mild a ortic regurgitation. There is no significant aortic valvular stenosis. MITRAL VALVE The mitral valve is normal in structure and function. There is no evidence of mitral valve prolapse. There is no mitral valve stenosis. Doppler and Color Flow revealed trace mitral regurgitation. TRICUSPID VALVE The tricuspid valve is normal in structure and function. Doppler and Color Flow revealed no tricuspid valve regurgitation noted. There is no tricuspid valve stenosis. PULMONIC VALVE The pulmonary valve is normal in structure and function. Doppler and Color Flow revealed trace pulmon ic valvular regurgitation. There is no pulmonic valvular stenosis. GREAT VESSELS The aortic root is normal in size. The ascending aorta is normal in size. The pulmonary artery is nor mal. The IVC is normal in size and collapses >50% with inspiration. PERICARDIAL EFFUSION There is no evidence of significant pericardial effusion. Critical Notification Critical Value: No <Conclusion> The left ventricle is normal size. The left ventricular systolic function is normal and the ejection fraction is within normal range. The Ejection Fraction is 60-65%. There is mild concentric left ventricular hypertrophy. There is no significant aortic valvular stenosis. Doppler and Color Flow revealed trace to mild aortic regurgitation. Doppler and Color Flow revealed trace mitral regurgitation. Doppler and Color Flow revealed no tricuspid valve regurgitation noted.
[2016-08-08] MEDS ORDERED: traZODone 100 MG TABLET. PO SCH (09:00)
--- NOTE | 2016-08-08 09:21 | PDOC ---
ORTHO PROGRESS NOTES Vitals Vital Signs Date Time Temp Pulse Resp B/P Pulse Ox O2 Delivery O2 Flow Rate FiO2 08/08/16 09:09 Room Air 08/08/16 07:00 97.9 59 18 136/71 96 97.9 Labs Laboratory Tests Test 08/07/16 11:12 08/07/16 17:05 08/08/16 02:00 White Blood Count 10.8x10^3/uL (4.0-11.0) 10.0x10^3/uL (4.0-11.0) Red Blood Count 4.43x10^6/uL (4.30-5.70) 4.07x10^6/uL (4.30-5.70) Hemoglobin 13.7g/dL (13.0-17.5) 12.6g/dL (13.0-17.5) Hematocrit 41.1% (39.0-53.0) 38.9% (39.0-53.0) Mean Corpuscular Volume 93fL (79-100) 96fL (79-100) Mean Corpuscular Hemoglobin 31pg (25-35) 31pg (25-35) Mean Corpuscular Hemoglobin Concent 33g/dL (31-37) 32g/dL (31-37) Red Cell Distribution Width 13.3% (11.5-14.5) 13.6% (11.5-14.5) Platelet Count 228x10^3/uL (140-400) 202x10^3/uL (140-400) Neutrophils (%) (Auto) 82% (31-73) 76% (31-73) Lymphocytes (%) (Auto) 10% (24-48) 15% (24-48) Monocytes (%) (Auto) 6% (0-9) 7% (0-9) Eosinophils (%) (Auto) 2% (0-3) 3% (0-3) Basophils (%) (Auto) 0% (0-3) 0% (0-3) Neutrophils # (Auto) 8.8x10^3uL (1.8-7.7) 7.6x10^3uL (1.8-7.7) Lymphocytes # (Auto) 1.1x10^3/uL (1.0-4.8) 1.5x10^3/uL (1.0-4.8) Monocytes # (Auto) 0.6x10^3/uL (0.0-1.1) 0.7x10^3/uL (0.0-1.1) Eosinophils # (Auto) 0.2x10^3/uL (0.0-0.7) 0.3x10^3/uL (0.0-0.7) Basophils # (Auto) 0.0x10^3/uL (0.0-0.2) 0.0x10^3/uL (0.0-0.2) Prothrombin Time 13.2SEC (11.7-14.0) Prothromb Time International Ratio 1.1 (0.8-1.1) Sodium Level 142mmol/L (136-145) 144mmol/L (136-145) Potassium Level 3.6mmol/L (3.5-5.1) 3.6mmol/L (3.5-5.1) Chloride Level 108mmol/L (98-107) 108mmol/L (98-107) Carbon Dioxide Level 26mmol/L (21-32) 27mmol/L (21-32) Anion Gap 8 (6-14) 9 (6-14) Blood Urea Nitrogen 6mg/dL (8-26) 9mg/dL (8-26) Creatinine 0.8mg/dL (0.7-1.3) 0.8mg/dL (0.7-1.3) Estimated GFR (Cockcroft-Gault) 119.7 119.7 BUN/Creatinine Ratio 8 (6-20) 11 (6-20) Glucose Level 106mg/dL (70-99) 101mg/dL (70-99) Calcium Level 8.7mg/dL (8.5-10.1) 8.5mg/dL (8.5-10.1) Total Bilirubin 0.3mg/dL (0.2-1.0) 0.5mg/dL (0.2-1.0) Aspartate Amino Transf (AST/SGOT) 12U/L (15-37) 9U/L (15-37) Alanine Aminotransferase (ALT/SGPT) 18U/L (16-63) 15U/L (16-63) Alkaline Phosphatase 76U/L (46-116) 65U/L (46-116) Creatine Kinase 148U/L (39-308) Creatine Kinase MB (Mass) 0.8ng/mL (0.0-3.6) Creatine Kinase MB Relative Index 0.5% (0-4) Troponin I Quantitative < 0.017ng/mL (0.000-0.055) < 0.017ng/mL (0.000-0.055) < 0.017ng/mL (0.000-0.055) FE-Vxq-W-Type Natriuretic Peptide 29pg/mL (0-124) Total Protein 7.0g/dL (6.4-8.2) 6.3g/dL (6.4-8.2) Albumin 3.3g/dL (3.4-5.0) 2.9g/dL (3.4-5.0) Albumin/Globulin Ratio 0.9 (1.0-1.7) 0.9 (1.0-1.7) Amylase Level 261U/L (25-115) Lipase 457U/L (73-393) Triglycerides Level 56mg/dL (0-150) Cholesterol Level 125mg/dL (0-200) LDL Cholesterol, Calculated 72mg/dL (0-100) VLDL Cholesterol, Calculated 11mg/dL (0-40) HDL Cholesterol 42mg/dL (40-60) Cholesterol/HDL Ratio 3.0 Laboratory Tests Test 08/07/16 11:12 08/07/16 17:05 08/08/16 02:00 White Blood Count 10.8x10^3/uL (4.0-11.0) 10.0x10^3/uL (4.0-11.0) Red Blood Count 4.43x10^6/uL (4.30-5.70) 4.07x10^6/uL (4.30-5.70) Hemoglobin 13.7g/dL (13.0-17.5) 12.6g/dL (13.0-17.5) Hematocrit 41.1% (39.0-53.0) 38.9% (39.0-53.0) Mean Corpuscular Volume 93fL (79-100) 96fL (79-100) Mean Corpuscular Hemoglobin 31pg (25-35) 31pg (25-35) Mean Corpuscular Hemoglobin Concent 33g/dL (31-37) 32g/dL (31-37) Red Cell Distribution Width 13.3% (11.5-14.5) 13.6% (11.5-14.5) Platelet Count 228x10^3/uL (140-400) 202x10^3/uL (140-400) Neutrophils (%) (Auto) 82% (31-73) 76% (31-73) Lymphocytes (%) (Auto) 10% (24-48) 15% (24-48) Monocytes (%) (Auto) 6% (0-9) 7% (0-9) Eosinophils (%) (Auto) 2% (0-3) 3% (0-3) Basophils (%) (Auto) 0% (0-3) 0% (0-3) Neutrophils # (Auto) 8.8x10^3uL (1.8-7.7) 7.6x10^3uL (1.8-7.7) Lymphocytes # (Auto) 1.1x10^3/uL (1.0-4.8) 1.5x10^3/uL (1.0-4.8) Monocytes # (Auto) 0.6x10^3/uL (0.0-1.1) 0.7x10^3/uL (0.0-1.1) Eosinophils # (Auto) 0.2x10^3/uL (0.0-0.7) 0.3x10^3/uL (0.0-0.7) Basophils # (Auto) 0.0x10^3/uL (0.0-0.2) 0.0x10^3/uL (0.0-0.2) Prothrombin Time 13.2SEC (11.7-14.0) Prothromb Time International Ratio 1.1 (0.8-1.1) Sodium Level 142mmol/L (136-145) 144mmol/L (136-145) Potassium Level 3.6mmol/L (3.5-5.1) 3.6mmol/L (3.5-5.1) Chloride Level 108mmol/L (98-107) 108mmol/L (98-107) Carbon Dioxide Level 26mmol/L (21-32) 27mmol/L (21-32) Anion Gap 8 (6-14) 9 (6-14) Blood Urea Nitrogen 6mg/dL (8-26) 9mg/dL (8-26) Creatinine 0.8mg/dL (0.7-1.3) 0.8mg/dL (0.7-1.3) Estimated GFR (Cockcroft-Gault) 119.7 119.7 BUN/Creatinine Ratio 8 (6-20) 11 (6-20) Glucose Level 106mg/dL (70-99) 101mg/dL (70-99) Calcium Level 8.7mg/dL (8.5-10.1) 8.5mg/dL (8.5-10.1) Total Bilirubin 0.3mg/dL (0.2-1.0) 0.5mg/dL (0.2-1.0) Aspartate Amino Transf (AST/SGOT) 12U/L (15-37) 9U/L (15-37) Alanine Aminotransferase (ALT/SGPT) 18U/L (16-63) 15U/L (16-63) Alkaline Phosphatase 76U/L (46-116) 65U/L (46-116) Creatine Kinase 148U/L (39-308) Creatine Kinase MB (Mass) 0.8ng/mL (0.0-3.6) Creatine Kinase MB Relative Index 0.5% (0-4) Troponin I Quantitative < 0.017ng/mL (0.000-0.055) < 0.017ng/mL (0.000-0.055) < 0.017ng/mL (0.000-0.055) EB-Kui-[id number]-Type Natriuretic Peptide 29pg/mL (0-124) Total Protein 7.0g/dL (6.4-8.2) 6.3g/dL (6.4-8.2) Albumin 3.3g/dL (3.4-5.0) 2.9g/dL (3.4-5.0) Albumin/Globulin Ratio 0.9 (1.0-1.7) 0.9 (1.0-1.7) Amylase Level 261U/L (25-115) Lipase 457U/L (73-393) Triglycerides Level 56mg/dL (0-150) Cholesterol Level 125mg/dL (0-200) LDL Cholesterol, Calculated 72mg/dL (0-100) VLDL Cholesterol, Calculated 11mg/dL (0-40) HDL Cholesterol 42mg/dL (40-60) Cholesterol/HDL Ratio 3.0 Assessment and Plan note dictated L groin pain x 1wk AVN on xray, will image R hip and MRI bilateral hips ESME SCHWARTZ II, MD Aug 08, 2016 09:21
--- NOTE | 2016-08-08 11:21 | PDOC ---
PROGRESS NOTES Chief Complaint Chief Complaint 1, Atypical chest pain in an adult at rest - unlikely ACS , but admitted for rule out 2. SMoker 3 Avascular necrosis of bilateral hip 4. Lumbago with recent laminectomy History of Present Illness History of Present Illness NO inc in CP Left groin pain is the more bothersome if at all XRay reviewed, shows bilateral necrosis Reviewed films with orthopedics - will do MRI, if need injections for pain relief, usually CT guided by IR Plan of care dw pt Vitals Vitals Vital Signs Date Time Temp Pulse Resp B/P Pulse Ox O2 Delivery O2 Flow Rate FiO2 08/08/16 09:09 Room Air 08/08/16 07:00 97.9 59 18 136/71 96 97.9 Physical Exam General: Alert, Oriented X3, Cooperative, mild distress Abdomen: Soft, Other (hyperactive bowel sounds to all quads; Diffuse abd tenderness localazing with more intensity to LLQ. ) Extremities: No cyanosis, No edema Skin: No breakdown, No significant lesion Labs LABS Laboratory Tests Test 08/07/16 17:05 08/08/16 02:00 Troponin I Quantitative < 0.017ng/mL (0.000-0.055) < 0.017ng/mL (0.000-0.055) White Blood Count 10.0x10^3/uL (4.0-11.0) Red Blood Count 4.07x10^6/uL (4.30-5.70) Hemoglobin 12.6g/dL (13.0-17.5) Hematocrit 38.9% (39.0-53.0) Mean Corpuscular Volume 96fL (79-100) Mean Corpuscular Hemoglobin 31pg (25-35) Mean Corpuscular Hemoglobin Concent 32g/dL (31-37) Red Cell Distribution Width 13.6% (11.5-14.5) Platelet Count 202x10^3/uL (140-400) Neutrophils (%) (Auto) 76% (31-73) Lymphocytes (%) (Auto) 15% (24-48) Monocytes (%) (Auto) 7% (0-9) Eosinophils (%) (Auto) 3% (0-3) Basophils (%) (Auto) 0% (0-3) Neutrophils # (Auto) 7.6x10^3uL (1.8-7.7) Lymphocytes # (Auto) 1.5x10^3/uL (1.0-4.8) Monocytes # (Auto) 0.7x10^3/uL (0.0-1.1) Eosinophils # (Auto) 0.3x10^3/uL (0.0-0.7) Basophils # (Auto) 0.0x10^3/uL (0.0-0.2) Sodium Level 144mmol/L (136-145) Potassium Level 3.6mmol/L (3.5-5.1) Chloride Level 108mmol/L (98-107) Carbon Dioxide Level 27mmol/L (21-32) Anion Gap 9 (6-14) Blood Urea Nitrogen 9mg/dL (8-26) Creatinine 0.8mg/dL (0.7-1.3) Estimated GFR (Cockcroft-Gault) 119.7 BUN/Creatinine Ratio 11 (6-20) Glucose Level 101mg/dL (70-99) Calcium Level 8.5mg/dL (8.5-10.1) Total Bilirubin 0.5mg/dL (0.2-1.0) Aspartate Amino Transf (AST/SGOT) 9U/L (15-37) Alanine Aminotransferase (ALT/SGPT) 15U/L (16-63) Alkaline Phosphatase 65U/L (46-116) Total Protein 6.3g/dL (6.4-8.2) Albumin 2.9g/dL (3.4-5.0) Albumin/Globulin Ratio 0.9 (1.0-1.7) Triglycerides Level 56mg/dL (0-150) Cholesterol Level 125mg/dL (0-200) LDL Cholesterol, Calculated 72mg/dL (0-100) VLDL Cholesterol, Calculated 11mg/dL (0-40) HDL Cholesterol 42mg/dL (40-60) Cholesterol/HDL Ratio 3.0 Review of Systems Review of Systems NO inc in CP, no SOA Groin pain Assessment and Plan Assessmemt and Plan ortho consult MRI hip today further tx Pending MRI cont supprotive care await echo results ok to dc tele Problems Medical Problems: (1) Chest pain Status: Acute (2) Chest pain of uncertain etiology Status: Acute (3) Hydrocele in adult Status: Acute (4) Neck pain, acute Status: Acute Problems: Comment Review of Relevant I have reviewed the following items jose g (where applicable) has been applied. Labs Laboratory Tests Test 08/07/16 11:12 08/07/16 17:05 08/08/16 02:00 White Blood Count 10.8x10^3/uL (4.0-11.0) 10.0x10^3/uL (4.0-11.0) Red Blood Count 4.43x10^6/uL (4.30-5.70) 4.07x10^6/uL (4.30-5.70) Hemoglobin 13.7g/dL (13.0-17.5) 12.6g/dL (13.0-17.5) Hematocrit 41.1% (39.0-53.0) 38.9% (39.0-53.0) Mean Corpuscular Volume 93fL (79-100) 96fL (79-100) Mean Corpuscular Hemoglobin 31pg (25-35) 31pg (25-35) Mean Corpuscular Hemoglobin Concent 33g/dL (31-37) 32g/dL (31-37) Red Cell Distribution Width 13.3% (11.5-14.5) 13.6% (11.5-14.5) Platelet Count 228x10^3/uL (140-400) 202x10^3/uL (140-400) Neutrophils (%) (Auto) 82% (31-73) 76% (31-73) Lymphocytes (%) (Auto) 10% (24-48) 15% (24-48) Monocytes (%) (Auto) 6% (0-9) 7% (0-9) Eosinophils (%) (Auto) 2% (0-3) 3% (0-3) Basophils (%) (Auto) 0% (0-3) 0% (0-3) Neutrophils # (Auto) 8.8x10^3uL (1.8-7.7) 7.6x10^3uL (1.8-7.7) Lymphocytes # (Auto) 1.1x10^3/uL (1.0-4.8) 1.5x10^3/uL (1.0-4.8) Monocytes # (Auto) 0.6x10^3/uL (0.0-1.1) 0.7x10^3/uL (0.0-1.1) Eosinophils # (Auto) 0.2x10^3/uL (0.0-0.7) 0.3x10^3/uL (0.0-0.7) Basophils # (Auto) 0.0x10^3/uL (0.0-0.2) 0.0x10^3/uL (0.0-0.2) Prothrombin Time 13.2SEC (11.7-14.0) Prothromb Time International Ratio 1.1 (0.8-1.1) Sodium Level 142mmol/L (136-145) 144mmol/L (136-145) Potassium Level 3.6mmol/L (3.5-5.1) 3.6mmol/L (3.5-5.1) Chloride Level 108mmol/L (98-107) 108mmol/L (98-107) Carbon Dioxide Level 26mmol/L (21-32) 27mmol/L (21-32) Anion Gap 8 (6-14) 9 (6-14) Blood Urea Nitrogen 6mg/dL (8-26) 9mg/dL (8-26) Creatinine 0.8mg/dL (0.7-1.3) 0.8mg/dL (0.7-1.3) Estimated GFR (Cockcroft-Gault) 119.7 119.7 BUN/Creatinine Ratio 8 (6-20) 11 (6-20) Glucose Level 106mg/dL (70-99) 101mg/dL (70-99) Calcium Level 8.7mg/dL (8.5-10.1) 8.5mg/dL (8.5-10.1) Total Bilirubin 0.3mg/dL (0.2-1.0) 0.5mg/dL (0.2-1.0) Aspartate Amino Transf (AST/SGOT) 12U/L (15-37) 9U/L (15-37) Alanine Aminotransferase (ALT/SGPT) 18U/L (16-63) 15U/L (16-63) Alkaline Phosphatase 76U/L (46-116) 65U/L (46-116) Creatine Kinase 148U/L (39-308) Creatine Kinase MB (Mass) 0.8ng/mL (0.0-3.6) Creatine Kinase MB Relative Index 0.5% (0-4) Troponin I Quantitative < 0.017ng/mL (0.000-0.055) < 0.017ng/mL (0.000-0.055) < 0.017ng/mL (0.000-0.055) KX-Atn-K-Type Natriuretic Peptide 29pg/mL (0-124) Total Protein 7.0g/dL (6.4-8.2) 6.3g/dL (6.4-8.2) Albumin 3.3g/dL (3.4-5.0) 2.9g/dL (3.4-5.0) Albumin/Globulin Ratio 0.9 (1.0-1.7) 0.9 (1.0-1.7) Amylase Level 261U/L (25-115) Lipase 457U/L (73-393) Triglycerides Level 56mg/dL (0-150) Cholesterol Level 125mg/dL (0-200) LDL Cholesterol, Calculated 72mg/dL (0-100) VLDL Cholesterol, Calculated 11mg/dL (0-40) HDL Cholesterol 42mg/dL (40-60) Cholesterol/HDL Ratio 3.0 Laboratory Tests Test 08/07/16 17:05 08/08/16 02:00 Troponin I Quantitative < 0.017ng/mL (0.000-0.055) < 0.017ng/mL (0.000-0.055) White Blood Count 10.0x10^3/uL (4.0-11.0) Red Blood Count 4.07x10^6/uL (4.30-5.70) Hemoglobin 12.6g/dL (13.0-17.5) Hematocrit 38.9% (39.0-53.0) Mean Corpuscular Volume 96fL (79-100) Mean Corpuscular Hemoglobin 31pg (25-35) Mean Corpuscular Hemoglobin Concent 32g/dL (31-37) Red Cell Distribution Width 13.6% (11.5-14.5) Platelet Count 202x10^3/uL (140-400) Neutrophils (%) (Auto) 76% (31-73) Lymphocytes (%) (Auto) 15% (24-48) Monocytes (%) (Auto) 7% (0-9) Eosinophils (%) (Auto) 3% (0-3) Basophils (%) (Auto) 0% (0-3) Neutrophils # (Auto) 7.6x10^3uL (1.8-7.7) Lymphocytes # (Auto) 1.5x10^3/uL (1.0-4.8) Monocytes # (Auto) 0.7x10^3/uL (0.0-1.1) Eosinophils # (Auto) 0.3x10^3/uL (0.0-0.7) Basophils # (Auto) 0.0x10^3/uL (0.0-0.2) Sodium Level 144mmol/L (136-145) Potassium Level 3.6mmol/L (3.5-5.1) Chloride Level 108mmol/L (98-107) Carbon Dioxide Level 27mmol/L (21-32) Anion Gap 9 (6-14) Blood Urea Nitrogen 9mg/dL (8-26) Creatinine 0.8mg/dL (0.7-1.3) Estimated GFR (Cockcroft-Gault) 119.7 BUN/Creatinine Ratio 11 (6-20) Glucose Level 101mg/dL (70-99) Calcium Level 8.5mg/dL (8.5-10.1) Total Bilirubin 0.5mg/dL (0.2-1.0) Aspartate Amino Transf (AST/SGOT) 9U/L (15-37) Alanine Aminotransferase (ALT/SGPT) 15U/L (16-63) Alkaline Phosphatase 65U/L (46-116) Total Protein 6.3g/dL (6.4-8.2) Albumin 2.9g/dL (3.4-5.0) Albumin/Globulin Ratio 0.9 (1.0-1.7) Triglycerides Level 56mg/dL (0-150) Cholesterol Level 125mg/dL (0-200) LDL Cholesterol, Calculated 72mg/dL (0-100) VLDL Cholesterol, Calculated 11mg/dL (0-40) HDL Cholesterol 42mg/dL (40-60) Cholesterol/HDL Ratio 3.0 Medications Current Medications Aspirin (Prem Aspirin) 325 mg 1X ONCE PO Last administered on 08/07/16 11:45 ; Start 08/07/16 at 11:30; Stop 08/07/16 at 11:31; Status DC Morphine Sulfate 5 mg 1X ONCE IV Last administered on 08/07/16 11:46; Start 08/07/16 at 11:30; Stop 08/07/16 at 11:31; Status DC Ondansetron HCl (Zofran) 4 mg PRN Q8HRS PRN IV NAUSEA/VOMITING; Start 08/07/16 at 14:15; Stop 08/07/16 at 14:55; Status DC Morphine Sulfate 4 mg PRN Q2HR PRN IV PAIN Last administered on 08/08/16 08:16 ; Start 08/07/16 at 14:15; Stop 08/08/16 at 14:14 Acetaminophen (Tylenol) 650 mg PRN Q4HRS PRN PO FEVER; Start 08/07/16 at 14:15 ; Stop 08/08/16 at 14:14 Ondansetron HCl (Zofran) 4 mg PRN Q6HRS PRN IV NAUSEA/VOMITING; Start 08/07/16 at 14:52 Lidocaine (Lidoderm) 1 patch DAILY TD Last administered on 08/07/16 16:33; Start 08/07/16 at 16:00 Acetaminophen/ Hydrocodone Bitart (Lortab 5/325) 1 tab PRN Q6HRS PRN PO PAIN Last administered on 08/07/16 22:14; Start 08/07/16 at 15:00 Ondansetron HCl (Zofran Odt) 4 mg PRN Q8HRS PRN PO n/v; Start 08/07/16 at 15:00 Oxycodone/ Acetaminophen (Percocet 10/325) 1 tab PRN QID PRN PO pain Last administered on 08/08/16 08:15; Start 08/07/16 at 15:00 Trazodone HCl (Desyrel) 100 mg DAILY PO ; Start 08/08/16 at 09:00; Stop at 09:00; Status DC Trazodone HCl (Desyrel) 100 mg HS PO Last administered on 08/07/16 22:16; Start 08/07/16 at 21:00 Active Scripts Active Hydrocodone-Apap 5-325 (Hydrocodone Bit/Acetaminophen) 1 Each Tablet 1 Tab PO PRN Q6HRS PRN Zofran Odt (Ondansetron) 4 Mg Tab.rapdis 1 Tab SL Q8HRS Reported Baclofen 10 Mg Tablet 1 Tab PO PRN QID PRN Percocet 10-325 Mg Tablet (Oxycodone/Acetaminophen) 1 Each Tablet 1 Each PO Trazodone Hcl 100 Mg Tablet 100 Mg PO Diazepam 10 Mg Tablet 10 Mg PO Vitals/I & O Vital Sign - Last 24 Hours 08/07/16 08/07/16 08/07/16 08/07/16 11:45 14:00 14:00 15:00 Pulse 72 68 62 Resp 16 16 16 B/P 167/90 Pulse Ox 99 97 97 O2 Delivery Room Air Room Air Room Air 08/07/16 08/07/16 08/07/16 08/07/16 16:10 16:31 19:00 19:06 Temp 98.1 97.9 98.1 97.9 Pulse 69 64 Resp 18 18 16 B/P 134/73 151/79 Pulse Ox 96 97 O2 Delivery Room Air Room Air Room Air 08/07/16 08/07/16 08/07/16 08/07/16 20:00 22:14 23:10 23:45 Temp 98.2 98.2 Pulse 62 Resp 16 15 18 B/P 140/89 Pulse Ox 94 O2 Delivery Room Air Room Air Room Air Room Air 08/08/16 08/08/16 08/08/16 08/08/16 02:50 03:19 03:50 07:00 Temp 98.4 97.9 98.4 97.9 Pulse 67 59 Resp 16 18 14 18 B/P 142/69 136/71 Pulse Ox 91 96 O2 Delivery Room Air Room Air Room Air 08/08/16 08/08/16 08/08/16 08/08/16 08:00 08:15 09:09 09:09 O2 Delivery Room Air Room Air Room Air Room Air Intake and Output 08/07/16 08/07/16 08/08/16 15:00 23:00 07:00 Intake Total 400 ml Output Total 0 ml Balance 0 ml 400 ml CHEMO GARCES MD Aug 08, 2016 11:21
--- NOTE | 2016-08-08 12:25 | RAD ---
Pelvis and right hip radiographs History: Avascular necrosis. Pain. Comparison: Left hip radiograph 08/07/2016. Findings: AP view of the pelvis including both hips. AP and frog-leg view of the right hip fracture dislocation is identified. There is evidence of mild flattening and sclerosis of right femoral head, compatible with avascular necrosis. Sclerosis of left femoral head is also seen. Impression: Avascular necrosis of bilateral femoral heads.
--- NOTE | 2016-08-08 13:03 | RAD ---
PROCEDURE MRI pelvis without contrast. HISTORY Avascular necrosis of the femoral heads. TECHNIQUE MRI of the pelvis was performed without intravenous contrast. FINDINGS There is subchondral sclerosis along the superior weightbearing portions of both femoral heads on the right greater than left. There is associated marrow edema within the right femoral head and neck. There is only minimal edema on the left adjacent to the subchondral fracture line. There is minimal irregularity of both femoral articular surfaces at the involved portions without articular surface collapse. There are small osteophytes along both femoral heads. The hip joint spaces are moderately narrowed on the right and mildly narrowed on the left consistent with moderate right and mild left osteoarthritis. Foci of subchondral edema are seen medially on the left and superiorly on the right acetabulum. Femoral head/neck offset is moderately decreased anteriorly on the right and mildly decreased on the left. There is no acetabular retroversion. There are bilateral degenerative acetabular labral tears without a paralabral cyst. The pubic symphysis and sacroiliac joints are unremarkable. There are postsurgical changes of lower lumbar fusion with laminectomies. Images of the pelvic organs are unremarkable. There is no muscular edema. There is no significant greater trochanteric or hamstring bursitis. IMPRESSION - Avascular necrosis of both femoral heads. A subchondral fracture line and subchondral sclerosis involves the majority of the weightbearing articular surface on the right greater the left. There is mild bilateral articular surface irregularity without gross collapse. - Edema within the right femoral head and neck may reflect a component of residual ischemia, or a stress reaction from the aforementioned subchondral fracture. - Moderate right and mild left hip osteoarthritis. 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 Degenerative acetabular labral tears bilaterally. Electronically signed by: Asa Latham (Aug 08, 2016 12:59:25)
[2016-08-08] MEDS ORDERED: POLYETHYLENE GLYCOL 3350 17 GM PACKET. PO PRN (18:30)
[2016-08-08] MEDS ORDERED: MAG HYDROX/AL HYDROX/SIMETH 30 ML ORAL.SUSP PO PRN (18:45)
[2016-08-08] MEDS: DOCUSATE SODIUM 100 MG CAPSULE PO SCH (21:50)
[2016-08-08] MEDS: traZODone 100 MG TABLET. PO SCH (21:51)
[2016-08-08] MEDS: MORPHINE SULFATE 2 MG/ML DISP.SYRIN. IV PRN (21:51)
--- NOTE | 2016-08-08 22:10 | CONS ---
DATE OF CONSULTATION: 08/08/2016 REFERRING PROVIDER: Dr. Andrea CONSULTING PROVIDER: Carl Schwartz MD REASON FOR CONSULTATION: Left hip pain and AVN. CHIEF COMPLAINT: Left groin pain. HISTORY OF PRESENT ILLNESS: The patient is a very pleasant 61-year-old who had a recent laminectomy and fusion at who presents to the Emergency Department complaining of chest and neck pain as well as left groin pain. He has been seen by Cardiology and is undergoing cardiac workup. He denies any trauma to his hip region. He tells me his whole left leg feels numb and tingly at times. He also has groin pain. The groin pain does not radiate. It began atraumatically and approximately 1 week ago. Denies any pain on his right hip or groin. ALLERGIES: None. MEDICATIONS: Reviewed. Please see MRAD. PAST MEDICAL HISTORY: Significant for low back pain. PAST SURGICAL HISTORY: Lumbar surgery at . FAMILY HISTORY: Cardiac disease. SOCIAL HISTORY: He does smoke. He does use alcohol. REVIEW OF SYSTEMS: Twelve-point review of systems negative except as per HPI. PHYSICAL EXAMINATION: GENERAL: The patient is alert and oriented. He is lying in bed. Speech is clear. HEENT: Head normocephalic, atraumatic. Extraocular muscles are intact. CARDIOVASCULAR: Regular rate and rhythm. No edema in his lower extremities. LUNGS: Respirations are unlabored with symmetric chest rise. ABDOMEN: Soft, nondistended. EXTREMITIES: Examination of bilateral lower extremities reveals decreased sensation circumferentially in his left lower extremity. EHL and FHL are 5/5 bilaterally. Dorsiflexion and plantarflexion 5/5 bilaterally. He has no pain with log rolling at either hip. He does have pain at end range of motion and internal rotation on his left side. He has approximately 20 degrees of internal rotation on his left side and slightly more on his right side. No pain on his right side. No tenderness around his hip. IMAGING: Two views of his left hip demonstrate findings consistent with early AVN with collapse. 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 PLAN: We will get AP pelvis and images of right hip radiographically. I would like to get an MRI as he may be a candidate for cord decompression. I will review the MRI once it has been completed and discuss this with the patient. Thank you for this consultation. CARL SCHWARTZ MD DR: Ruth JOB#: [id number] / [id number] REYNALDO
[2016-08-09 03:52] VITALS: BP 127/72
[2016-08-09] MEDS: BACLOFEN 10 MG TABLET PO PRN ×3 (04:16→12:56)
[2016-08-09] MEDS: MORPHINE SULFATE 2 MG/ML DISP.SYRIN. IV PRN (04:17)
[2016-08-09 07:00] VITALS: BP 142/69
[2016-08-09] MEDS: DOCUSATE SODIUM 100 MG CAPSULE PO SCH (08:35)
[2016-08-09] MEDS: LIDOCAINE (700MG/PATCH) PATCH. TD SCH (08:35)
[2016-08-09] MEDS: OXYCODONE/APAP 10/325 TABLET. PO PRN ×2 (08:35→12:57)
[2016-08-09] MEDS: FENTANYL PF 100 MCG/2 ML VIAL. IV PRN ×2 (08:42→11:09)
[2016-08-09] MEDS ORDERED: MORPHINE SULFATE 4 MG/ML DISP.SYRIN. IV PRN (09:45)
[2016-08-09] MEDS: HYDROMORPHONE 2 MG/ML VIAL. IV PRN ×2 (10:03→14:19)
--- NOTE | 2016-08-09 10:05 | DISCH ---
DISCHARGE INSTRUCTIONS Condition on Discharge Condition on Discharge: Stable Activity After Discharge Activity Instructions for Disc: Other, see below Lifting Instructions after Dis: No heavy lifting Weight Bearing Status after Di: As tolerated Diet after Discharge Diet after Discharge: Regular Contacting the DRDipak after DC Call your doctor for: Concerns you may have Follow-Up Follow up with: Flores Thursday for surgery Treatment/Equipment after DC Adaptive Equipment Issued: None ESME SCHWARTZ II, MD Aug 09, 2016 10:05
--- NOTE | 2016-08-09 10:07 | PDOC ---
ORTHO PROGRESS NOTES Subjective L hip/groin pain unchanged. Vitals Vital Signs Date Time Temp Pulse Resp B/P Pulse Ox O2 Delivery O2 Flow Rate FiO2 08/09/16 10:03 16 98 Room Air 08/09/16 03:52 97.7 64 127/72 97.7 Labs Laboratory Tests Test 08/07/16 11:12 08/07/16 17:05 08/08/16 02:00 White Blood Count 10.8x10^3/uL (4.0-11.0) 10.0x10^3/uL (4.0-11.0) Red Blood Count 4.43x10^6/uL (4.30-5.70) 4.07x10^6/uL (4.30-5.70) Hemoglobin 13.7g/dL (13.0-17.5) 12.6g/dL (13.0-17.5) Hematocrit 41.1% (39.0-53.0) 38.9% (39.0-53.0) Mean Corpuscular Volume 93fL (79-100) 96fL (79-100) Mean Corpuscular Hemoglobin 31pg (25-35) 31pg (25-35) Mean Corpuscular Hemoglobin Concent 33g/dL (31-37) 32g/dL (31-37) Red Cell Distribution Width 13.3% (11.5-14.5) 13.6% (11.5-14.5) Platelet Count 228x10^3/uL (140-400) 202x10^3/uL (140-400) Neutrophils (%) (Auto) 82% (31-73) 76% (31-73) Lymphocytes (%) (Auto) 10% (24-48) 15% (24-48) Monocytes (%) (Auto) 6% (0-9) 7% (0-9) Eosinophils (%) (Auto) 2% (0-3) 3% (0-3) Basophils (%) (Auto) 0% (0-3) 0% (0-3) Neutrophils # (Auto) 8.8x10^3uL (1.8-7.7) 7.6x10^3uL (1.8-7.7) Lymphocytes # (Auto) 1.1x10^3/uL (1.0-4.8) 1.5x10^3/uL (1.0-4.8) Monocytes # (Auto) 0.6x10^3/uL (0.0-1.1) 0.7x10^3/uL (0.0-1.1) Eosinophils # (Auto) 0.2x10^3/uL (0.0-0.7) 0.3x10^3/uL (0.0-0.7) Basophils # (Auto) 0.0x10^3/uL (0.0-0.2) 0.0x10^3/uL (0.0-0.2) Prothrombin Time 13.2SEC (11.7-14.0) Prothromb Time International Ratio 1.1 (0.8-1.1) Sodium Level 142mmol/L (136-145) 144mmol/L (136-145) Potassium Level 3.6mmol/L (3.5-5.1) 3.6mmol/L (3.5-5.1) Chloride Level 108mmol/L (98-107) 108mmol/L (98-107) Carbon Dioxide Level 26mmol/L (21-32) 27mmol/L (21-32) Anion Gap 8 (6-14) 9 (6-14) Blood Urea Nitrogen 6mg/dL (8-26) 9mg/dL (8-26) Creatinine 0.8mg/dL (0.7-1.3) 0.8mg/dL (0.7-1.3) Estimated GFR (Cockcroft-Gault) 119.7 119.7 BUN/Creatinine Ratio 8 (6-20) 11 (6-20) Glucose Level 106mg/dL (70-99) 101mg/dL (70-99) Calcium Level 8.7mg/dL (8.5-10.1) 8.5mg/dL (8.5-10.1) Total Bilirubin 0.3mg/dL (0.2-1.0) 0.5mg/dL (0.2-1.0) Aspartate Amino Transf (AST/SGOT) 12U/L (15-37) 9U/L (15-37) Alanine Aminotransferase (ALT/SGPT) 18U/L (16-63) 15U/L (16-63) Alkaline Phosphatase 76U/L (46-116) 65U/L (46-116) Creatine Kinase 148U/L (39-308) Creatine Kinase MB (Mass) 0.8ng/mL (0.0-3.6) Creatine Kinase MB Relative Index 0.5% (0-4) Troponin I Quantitative < 0.017ng/mL (0.000-0.055) < 0.017ng/mL (0.000-0.055) < 0.017ng/mL (0.000-0.055) LW-Ldf-V-Type Natriuretic Peptide 29pg/mL (0-124) Total Protein 7.0g/dL (6.4-8.2) 6.3g/dL (6.4-8.2) Albumin 3.3g/dL (3.4-5.0) 2.9g/dL (3.4-5.0) Albumin/Globulin Ratio 0.9 (1.0-1.7) 0.9 (1.0-1.7) Amylase Level 261U/L (25-115) Lipase 457U/L (73-393) Triglycerides Level 56mg/dL (0-150) Cholesterol Level 125mg/dL (0-200) LDL Cholesterol, Calculated 72mg/dL (0-100) VLDL Cholesterol, Calculated 11mg/dL (0-40) HDL Cholesterol 42mg/dL (40-60) Cholesterol/HDL Ratio 3.0 X-Rays MRI bilateral AVN Notes A and A some irritation with logrolling of LLE EHL/FHL 5/5 toes warm Assessment and Plan core decompression Thursday ok to go home today ESME SCHWARTZ II, MD Aug 09, 2016 10:07
--- NOTE | 2016-08-09 10:21 | PDOC3 ---
Discharge Summary Visit Information Date of Admission: Aug 07, 2016 Date of Discharge: Aug 09, 2016 Admitting Diagnosis Comment: 1, Atypical chest pain in an adult at rest - unlikely ACS , but admitted for rule out 2. SMoker 3 Avascular necrosis of bilateral hip 4. Lumbago with recent laminectomy Final Diagnosis Problems Medical Problems: (1) Avascular necrosis of bones of both hips Status: Acute (2) Chest pain Status: Acute (3) Chest pain of uncertain etiology Status: Acute (4) Hydrocele in adult Status: Acute (5) Neck pain, acute Status: Acute Brief Hospital Course Allergies Allergies Coded Allergies Type Severity Reaction Last Updated Verified No Known Drug Allergies 01/13/14 No Vital Signs Vital Signs Date Time Temp Pulse Resp B/P Pulse Ox O2 Delivery O2 Flow Rate FiO2 08/09/16 10:03 16 98 Room Air 08/09/16 03:52 97.7 64 127/72 97.7 Lab Results Laboratory Tests Test 08/07/16 11:12 08/07/16 17:05 08/08/16 02:00 White Blood Count 10.8x10^3/uL (4.0-11.0) 10.0x10^3/uL (4.0-11.0) Red Blood Count 4.43x10^6/uL (4.30-5.70) 4.07x10^6/uL (4.30-5.70) Hemoglobin 13.7g/dL (13.0-17.5) 12.6g/dL (13.0-17.5) Hematocrit 41.1% (39.0-53.0) 38.9% (39.0-53.0) Mean Corpuscular Volume 93fL (79-100) 96fL (79-100) Mean Corpuscular Hemoglobin 31pg (25-35) 31pg (25-35) Mean Corpuscular Hemoglobin Concent 33g/dL (31-37) 32g/dL (31-37) Red Cell Distribution Width 13.3% (11.5-14.5) 13.6% (11.5-14.5) Platelet Count 228x10^3/uL (140-400) 202x10^3/uL (140-400) Neutrophils (%) (Auto) 82% (31-73) 76% (31-73) Lymphocytes (%) (Auto) 10% (24-48) 15% (24-48) Monocytes (%) (Auto) 6% (0-9) 7% (0-9) Eosinophils (%) (Auto) 2% (0-3) 3% (0-3) Basophils (%) (Auto) 0% (0-3) 0% (0-3) Neutrophils # (Auto) 8.8x10^3uL (1.8-7.7) 7.6x10^3uL (1.8-7.7) Lymphocytes # (Auto) 1.1x10^3/uL (1.0-4.8) 1.5x10^3/uL (1.0-4.8) Monocytes # (Auto) 0.6x10^3/uL (0.0-1.1) 0.7x10^3/uL (0.0-1.1) Eosinophils # (Auto) 0.2x10^3/uL (0.0-0.7) 0.3x10^3/uL (0.0-0.7) Basophils # (Auto) 0.0x10^3/uL (0.0-0.2) 0.0x10^3/uL (0.0-0.2) Prothrombin Time 13.2SEC (11.7-14.0) Prothromb Time International Ratio 1.1 (0.8-1.1) Sodium Level 142mmol/L (136-145) 144mmol/L (136-145) Potassium Level 3.6mmol/L (3.5-5.1) 3.6mmol/L (3.5-5.1) Chloride Level 108mmol/L (98-107) 108mmol/L (98-107) Carbon Dioxide Level 26mmol/L (21-32) 27mmol/L (21-32) Anion Gap 8 (6-14) 9 (6-14) Blood Urea Nitrogen 6mg/dL (8-26) 9mg/dL (8-26) Creatinine 0.8mg/dL (0.7-1.3) 0.8mg/dL (0.7-1.3) Estimated GFR (Cockcroft-Gault) 119.7 119.7 BUN/Creatinine Ratio 8 (6-20) 11 (6-20) Glucose Level 106mg/dL (70-99) 101mg/dL (70-99) Calcium Level 8.7mg/dL (8.5-10.1) 8.5mg/dL (8.5-10.1) Total Bilirubin 0.3mg/dL (0.2-1.0) 0.5mg/dL (0.2-1.0) Aspartate Amino Transf (AST/SGOT) 12U/L (15-37) 9U/L (15-37) Alanine Aminotransferase (ALT/SGPT) 18U/L (16-63) 15U/L (16-63) Alkaline Phosphatase 76U/L (46-116) 65U/L (46-116) Creatine Kinase 148U/L (39-308) Creatine Kinase MB (Mass) 0.8ng/mL (0.0-3.6) Creatine Kinase MB Relative Index 0.5% (0-4) Troponin I Quantitative < 0.017ng/mL (0.000-0.055) < 0.017ng/mL (0.000-0.055) < 0.017ng/mL (0.000-0.055) DC-Txa-F-Type Natriuretic Peptide 29pg/mL (0-124) Total Protein 7.0g/dL (6.4-8.2) 6.3g/dL (6.4-8.2) Albumin 3.3g/dL (3.4-5.0) 2.9g/dL (3.4-5.0) Albumin/Globulin Ratio 0.9 (1.0-1.7) 0.9 (1.0-1.7) Amylase Level 261U/L (25-115) Lipase 457U/L (73-393) Triglycerides Level 56mg/dL (0-150) Cholesterol Level 125mg/dL (0-200) LDL Cholesterol, Calculated 72mg/dL (0-100) VLDL Cholesterol, Calculated 11mg/dL (0-40) HDL Cholesterol 42mg/dL (40-60) Cholesterol/HDL Ratio 3.0 Brief Hospital Course Mr. Coffey is a 61 old AA male admitted for chest pain which was non cardiac , echo normal,. BUt had bilateral hip pains, and on xray and mRI shows avascular necrosis of both hips. Ortho consulted. Planning on outpt sx thursday , in the meantime, will dc on PO dilaudid, pt used to narcs as just had kyphoplasty at 2 weeks ago Dc time 30 mins including earlier rounds, rain RN at bedside, provided copies of results to pt Pt seen and examined Discharge Information Condition at Discharge: Improved, Stable Follow Up: Weeks (Dr. Tanner on thu) Disposition/Orders: D/C to Home Scheduled Ondansetron (Zofran Odt) 1 TAB SL Q8HRS Scheduled PRN Baclofen (Baclofen) 1 TAB PO PRN QID PRN PRN MUSCLE SPASMS (Reported) Hydrocodone Bit/Acetaminophen (Hydrocodone-Apap 5-325 ) 1 TAB PO PRN Q6HRS PRN PRN PAIN Miscellaneous Medications Diazepam (Diazepam) 10 MG PO (Reported) Oxycodone/Apap 10-325 (Percocet 10-325 Mg Tablet) 1 EACH PO (Reported) Trazodone Hcl (Trazodone Hcl) 100 MG PO (Reported) CHEMO GARCES MD Aug 09, 2016 10:21
[2016-08-09 11:00] VITALS: BP 117/72
[2016-08-09] MEDS ORDERED: HYDR2TAB13 PO ×2 (14:01→14:04)
== END 2016-08-09 14:30 | disposition home or self-care (01) | DRG 392 ==
LOC: ER 10:34 → 4 NORTH 13:45
PROVIDERS: ADMIT Internal Medicine; ATTEND Internal Medicine
DX: R10.30 Lower abdominal pain, unspecified (principal); M87.9 Osteonecrosis, unspecified; R07.89 Other chest pain; E66.3 Overweight; G89.29 Other chronic pain; M16.10 Unilateral primary osteoarthritis, unspecified hip; N43.3 Hydrocele, unspecified; F12.90 Cannabis use, unspecified, uncomplicated; F17.210 Nicotine dependence, cigarettes, uncomplicated; Z98.890 Other specified postprocedural states; Z84.1 Family history of disorders of kidney and ureter; Z82.49 Family history of ischemic heart disease and other diseases of the circulatory system
CPT/HCPCS: 36415; 71010; 72195; 73502; 76870; 80053; 80061; 82150; 82553; 83690; 83880; 84484; 85027; 85610; 93005; 93306; 96374; J1170; J2270; J2405; J3010; 97003-GO; 99285-25

== ENCOUNTER 2016-08-13 06:25 | Observation (INO) | payer MEDICARE, MEDICAID ==
[~2016-08-13] VITALS: Ht 170.2 cm; Wt 83.5 kg
[2016-08-13] VITALS (11 sets, daily range): BP systolic 106–160; BP diastolic 43–80
[~2016-08-13 06:25] MED LIST changes: +BACL10TA PO; +CEFAZOLIN 1GM IVPB FOR OMNI 50 ML IV ONE; +HYDR2TAB13 PO
[2016-08-13] MEDS ORDERED: PROCHLORPERAZINE 10 MG/2 ML VIAL. IV PRN ×2 (07:00→08:00)
[2016-08-13] MEDS ORDERED: HYDROMORPHONE 2 MG/ML VIAL. IV PRN (07:00)
[2016-08-13] MEDS ORDERED: IV RINGERS,LACTATED 1000ML 1,000 ML IV SCH (07:00)
[2016-08-13] MEDS ORDERED: MORPHINE SULFATE 2 MG/ML DISP.SYRIN. IV PRN ×2 (07:00→08:00)
[2016-08-13] MEDS ORDERED: FENTANYL PF 100 MCG/2 ML VIAL. IV PRN ×3 (07:00→08:00)
[2016-08-13] MEDS ORDERED: ONDANSETRON PF 4 MG/2 ML VIAL. IV PRN (07:00)
[2016-08-13] MEDS ORDERED: LIDOCAINE 1% 1 ML SYRINGE. ID PRN (07:00)
[2016-08-13] MEDS ORDERED: PROPOFOL 20 ML IV ONE (07:37)
[2016-08-13] MEDS ORDERED: FENTANYL PF 100 MCG/2 ML VIAL. ONE (07:37)
[2016-08-13] MEDS ORDERED: MIDAZOLAM HCL 2 MG/2 ML VIAL. ONE (07:37)
[2016-08-13] MEDS ORDERED: SEVOFLURANE 61 TO 120 MINUTES. IH ONE (07:37)
[2016-08-13] MEDS ORDERED: ONDANSETRON PF 4 MG/2 ML VIAL. ONE (07:37)
[2016-08-13] MEDS ORDERED: LIDOCAINE 2% 100 MG/5 ML DISP.SYRIN. ONE (07:38)
[2016-08-13] MEDS ORDERED: DEXAMETHASONE SOD PHOS 20 MG/5 ML VIAL. ONE (07:38)
[2016-08-13] MEDS ORDERED: BUPIVACAINE MPF 0.5% 30 ML VIAL. ONE (07:45)
[2016-08-13] MEDS ORDERED: LIDOCAINE 1% PF 30 ML VIAL. ONE (07:45)
[2016-08-13] MEDS ORDERED: IV DEXTROSE 5 %-0.45 % NACL 1,000 ML IV SCH (07:52)
[2016-08-13] MEDS ORDERED: KETAMINE HCL 500 MG/10 ML VIAL. ONE (07:55)
--- NOTE | 2016-08-13 07:59 | PDOC ---
BRIEF OPERATIVE NOTE Date: Aug 13, 2016 Pre-Op Diagnosis L hip AVN Post-Op Diagnosis same Procedure Performed L hip core decompression Surgeon Flores Anesthesiologist McNitt Blood Loss 5mL Complications none ESME SCHWARTZ II, MD Aug 13, 2016 07:59
[2016-08-13] MEDS ORDERED: CALCIUM CARBONATE 500 MG TAB.CHEW PO PRN (08:00)
[2016-08-13] MEDS ORDERED: ACETAMINOPHEN 325 MG TABLET. PO PRN (08:00)
[2016-08-13] MEDS ORDERED: METOCLOPRAMIDE HCL 10 MG/2 ML VIAL. IV PRN (08:00)
[2016-08-13] MEDS ORDERED: BACLOFEN 10 MG TABLET PO PRN (08:00)
[2016-08-13] MEDS ORDERED: 0.9 % SODIUM CHLORIDE 10 ML DISP.SYRIN. IV PRN (08:00)
[2016-08-13] MEDS ORDERED: CEFAZOLIN 1GM IVPB FOR OMNI 50 ML IV ONE (08:00)
[2016-08-13] MEDS ORDERED: HYDROCODONE/APAP 10/325 TABLET. PO PRN (08:00)
[2016-08-13] MEDS ORDERED: MORPHINE SULFATE 10 MG/ML VIAL. IV PRN (08:00)
[2016-08-13] MEDS ORDERED: OXYCODONE/APAP 5/325 TABLET. PO PRN (08:00)
[2016-08-13] MEDS ORDERED: DEXTROSE 50% 25 GM / 50ML DISP.SYRIN. IV PRN (08:00)
[2016-08-13] MEDS ORDERED: MORPHINE SULFATE 4 MG/ML DISP.SYRIN. IV PRN ×2 (08:00)
[2016-08-13] MEDS ORDERED: ZOLPIDEM 5 MG TABLET. PO PRN (08:00)
[2016-08-13] MEDS ORDERED: HYDROCODONE/APAP 7.5/325MG TABLET. PO PRN (08:00)
[2016-08-13] MEDS ORDERED: TRAMADOL 50 MG TABLET. PO PRN ×2 (08:00)
[2016-08-13] MEDS ORDERED: OXYCODONE/APAP 7.5/325 TABLET. PO PRN (08:00)
[2016-08-13] MEDS ORDERED: DIPHENHYDRAMINE 50 MG/ML VIAL IV PRN (08:00)
[2016-08-13] MEDS ORDERED: PROCHLORPERAZINE 5 MG TABLET. PO PRN (08:00)
[2016-08-13] MEDS ORDERED: LIDOCAINE 1% 20 ML VIAL. ONE (09:24)
[2016-08-13] MEDS ORDERED: SURGICEL FIBRILLAR 1X2 EACH. ONE (09:24)
[2016-08-13] MEDS: FENTANYL PF 100 MCG/2 ML VIAL. IV PRN ×2 (09:25→09:40)
--- NOTE | 2016-08-13 09:27 | OP ---
DATE OF SURGERY: 08/13/2016 SURGEON: Carl Schwartz MD LOADER TECHNICIAN: None. PREOPERATIVE DIAGNOSIS: Bilateral, symptomatic on the left, hip avascular necrosis. POSTOPERATIVE DIAGNOSIS: Bilateral, symptomatic on the left, hip avascular necrosis. PROCEDURE PERFORMED: Left hip core decompression with three passes of a 3.2 mm guide pin. BLOOD LOSS: 5 mL. COMPLICATIONS: None. REASON FOR PROCEDURE: This is a 61-year-old gentleman who I was asked to see in consultation for his left-sided groin pain. The pain began approximately 1-2 weeks ago and was atraumatic in onset. He did have an episode of right hip pain several years ago that he can recall. No complaints of his right hip currently. Radiographs and MRI revealed avascular necrosis at his hips without collapse. The lesions were sclerotic, however. Nonetheless, I did discuss the possibility of core decompression and its rationale as well as the risks, benefits, alternatives and he wished to proceed with surgery. DESCRIPTION OF PROCEDURE: The patient was greeted in the preoperative area by myself. Correct extremity was marked and verified. He was taken to the operative suite and antibiotics started en route. Once in the OR, he had successful induction of general anesthesia, we then transferred him gently supine to the fracture table, placed a perineal post, slid him down into position and secured his right leg in a well leg ramirez, left leg in a traction ski boot. I performed some internal rotation in the line of the femoral neck perpendicular to the peroneal post. C-arm was brought in to make sure we could obtain adequate images and then we proceeded to prep and drape of the left lower extremity and hip in usual sterile fashion with Ioban at the periphery. I then used C-arm to localize a trajectory in the superior aspect of his femoral neck on an AP as well as my starting point lateral to the proximal aspect of the lesser trochanter. I then performed a stab incision over this area and palpated with the tip of my guide pin for the anterior, posterior dimensions of the femur and then when in the middle, drilled perpendicular to the bone at the center of these points. I then used C-arm and careful drilling under AP and lateral imaging to guide three passes of my guidewire into the avascular lesion. After this, I withdrew the guidewire, irrigated out the small stab incision I had made and closed skin with simple interrupted 2-0 nylon. The area was cleansed and dried and a sterile occlusive dressing was applied. We then took the patient down from the fracture table and removed the post and then transferred gently supine to the recovery room cart. He was taken to PACU in stable and extubated condition. Postop plan is partial weightbearing left lower extremity. He will receive PT and OT and possible discharge later today versus tomorrow morning. He will receive antibiotic prophylaxis. CARL SCHWARTZ MD DR: SARAHI/shahbaz JOB#: [id number] / [id number] REYNALDO
[2016-08-13] MEDS: DIAZEPAM 5 MG TABLET PO PRN ×2 (10:59→18:16)
[2016-08-13] MEDS: OXYCODONE/APAP 10/325 TABLET. PO PRN ×2 (10:59→15:29)
[2016-08-13] MEDS: HYDROMORPHONE 2 MG TABLET. PO SCH ×2 (13:15→21:10)
[2016-08-13] MEDS: CEFAZOLIN 2GM PREMIX 50 ML IV SCH ×2 (13:18→21:07)
[2016-08-13] MEDS ORDERED: OXYC10TA PO (16:28)
[2016-08-13] MEDS: OXYCODONE IR 5 MG TABLET. PO PRN ×2 (18:16→22:34)
[2016-08-13] MEDS: FERROUS SULFATE 325 MG TABLET PO SCH (18:16)
[2016-08-13] MEDS ORDERED: traZODone 100 MG TABLET. PO SCH (21:00)
[2016-08-13] MEDS: CELECOXIB 200 MG CAPSULE PO SCH (21:10)
[2016-08-14] MEDS: CEFAZOLIN 2GM PREMIX 50 ML IV SCH (03:06)
[2016-08-14] MEDS: DIAZEPAM 5 MG TABLET PO PRN (03:14)
[2016-08-14] MEDS: OXYCODONE IR 5 MG TABLET. PO PRN ×2 (03:14→09:35)
[2016-08-14 03:49] VITALS: BP 147/70
[2016-08-14] MEDS ORDERED: MAGNESIUM HYDROXIDE 2,400 MG/30 ML ORAL.SUSP. PO PRN (06:00)
[2016-08-14 07:00] VITALS: BP 135/82
--- NOTE | 2016-08-14 08:31 | DISCH ---
DISCHARGE INSTRUCTIONS Condition on Discharge Condition on Discharge: Stable Activity After Discharge Activity Instructions for Disc: Other, see below Other activity instructions: crutches Bathing Instructions: Shower-keep dressing dry Lifting Instructions after Dis: No heavy lifting Weight Bearing Status after Di: Partial weight bearing Diet after Discharge Diet after Discharge: Regular Wound Incision Care Wound/Incision Care: Ice to area for comfort, Keep wound/cast CDI, Change dressing Contacting the DR. after DC Call your doctor for: Concerns you may have Follow-Up Follow up with: Flores in 2wks ESME SCHWARTZ II, MD Aug 14, 2016 08:31
--- NOTE | 2016-08-14 08:34 | PDOC ---
ORTHO PROGRESS NOTES Subjective "the pressure in my hip is gone" Doing ok, pain tolerable, has been non- compliant with PWB, per nursing. No CP, SOB, abd complaints Vitals Vital Signs Date Time Temp Pulse Resp B/P Pulse Ox O2 Delivery O2 Flow Rate FiO2 08/14/16 04:15 16 Room Air 08/14/16 03:49 98.1 69 147/70 94 98.1 08/13/16 08:47 10 Notes A and A in bed incision c/d/i LLE: wiggles toes, toes warm Assessment and Plan ok to D/C f/u in 2wks PWB LLE PT prior to D/C ESME SCHWARTZ II, MD Aug 14, 2016 08:34
[2016-08-14] MEDS ORDERED: SENNOSIDES/DOCUSATE 8.6/50MG TABLET. PO SCH (09:00)
[2016-08-14] MEDS ORDERED: MULTIVITAMIN with MINERAL TABLET. PO SCH (09:00)
[2016-08-14] MEDS: CELECOXIB 200 MG CAPSULE PO SCH (09:34)
[2016-08-14] MEDS: HYDROMORPHONE 2 MG TABLET. PO SCH (09:34)
[2016-08-14] MEDS: FERROUS SULFATE 325 MG TABLET PO SCH (09:34)
[2016-08-14 11:00] VITALS: BP 136/82
[2016-08-14] MEDS ORDERED: BISACODYL 10 MG SUPP.RECT PR PRN (16:00)
== END 2016-08-14 13:50 | disposition home or self-care (01) ==
LOC: SURG 06:25 → 4 NORTH 10:31
PROVIDERS: ADMIT Orthopaedic Surgery Sports Medicine; ATTEND Orthopaedic Surgery Sports Medicine
DX: M87.852 Other osteonecrosis, left femur (principal)
CPT/HCPCS: 27299; 76000; 96365; 96375; 96376; 97116; 97161; 97166; 97530; C1713; G0378; G0379; G8978; G8979; G8980; J0690; J1100; J2250; J2405; J2704; J3010; J3490; J7120; J2270

== ENCOUNTER 2016-10-07 11:49 | Emergency (ER) | payer MEDICARE, MEDICAID ==
[~2016-10-07] VITALS: Ht 170.2 cm; Wt 81.6 kg
[~2016-10-07 11:49] MED LIST changes: -CEFAZOLIN 1GM IVPB FOR OMNI 50 ML IV ONE; +OXYC10TA PO
[2016-10-07 12:00] VITALS: BP 142/81
[2016-10-07 12:12] LABS: BASO % 1 % (0-3); EOS % 3 % (0-3); HEMATOCRIT 45.2 % (39.0-53.0); HEMOGLOBIN 14.8 g/dL (13.0-17.5); LYMPH # 1.5 x10^3/uL (1.0-4.8); LYMPH % 29 % (24-48); MEAN CORPUSCULAR HEMOGLOBIN 30 pg (25-35); MEAN CORPUSCULAR HGB CONC 33 g/dL (31-37); MEAN CORPUSCULAR VOLUME 93 fL (79-100); MONO % 6 % (0-9); NEUT % 61 % (31-73); PLATELET COUNT 221 x10^3/uL (140-400); RED BLOOD COUNT 4.86 x10^6/uL (4.30-5.70); RED CELL DISTRIBUTION WIDTH 13.8 % (11.5-14.5); WHITE BLOOD COUNT 5.2 x10^3/uL (4.0-11.0)
[2016-10-07] MEDS ORDERED: ASPIRIN 81 MG TAB.CHEW PO ONE (12:15)
[2016-10-07 12:27] LABS: ANION GAP 9 (6-14); BLOOD UREA NITROGEN 11 mg/dL (8-26); CALCIUM 9.3 mg/dL (8.5-10.1); CARBON DIOXIDE 30 mmol/L (21-32); CHLORIDE 106 mmol/L (98-107); GFR 92.5; GLUCOSE 92 mg/dL (70-99); POTASSIUM 3.8 mmol/L (3.5-5.1); SODIUM 145 mmol/L (136-145)
--- NOTE | 2016-10-07 12:28 | RAD ---
Portable chest, 10/07/2016: History: Chest and back pain Comparison is made to a study from 08/07/2016. The heart size and pulmonary vascularity are normal. There is a calcified granuloma in the left base. No acute infiltrates are seen. There is no evidence of pleural fluid. IMPRESSION: No acute cardiopulmonary abnormality is detected.
[2016-10-07] MEDS ORDERED: ASPI81TA2 PO (12:31)
--- NOTE | 2016-10-07 12:31 | PHYS DOC ---
Past Medical History Past Medical History: Other Additional Past Medical Histor: chronic back pain Past Surgical History: Lumbar Laminectomy, Other Additional Past Surgical Histo: back surgery- hardware, inguinal hernia Alcohol Use: Rarely Drug Use: Marijuana Adult General Chief Complaint Chief Complaint: CHEST PAIN HPI HPI 61-year-old male presenting to the emergency department today with chest pain that started last night around 8 PM. He describes it as sharp worse with deep breaths and worse when pressing on the chest. He also has mild shortness of breath intermittently. He denies any other symptoms. He denies nausea vomiting. He denies diabetes he admits to smoking. He denies having chronic hypertension however does have mild hypertension here. He denies high cholesterol. He denies family history of heart disease. He denies hemoptysis unilateral leg swelling personal or family history of blood clotting disorder. He denies recent immobilization. Review of systems is negative for diaphoresis nausea vomiting abdominal pain diarrhea fevers or chills. He denies cough. All other review of systems is negative unless otherwise noted in history of present illness. Review of Systems Review of Systems SEE ABOVE. Current Medications Current Medications Current Medications Medications (Trade) Dose Ordered Sig/Michael Start Time Stop Time Status Last Admin Dose Admin Aspirin (Children'S Aspirin) 324 mg 1X ONCE 10/07/16 12:15 10/07/16 12:16 DC 10/07/16 12:24 324 MG Allergies Allergies Allergies Coded Allergies Type Severity Reaction Last Updated Verified No Known Drug Allergies 10/07/16 No Physical Exam Physical Exam Constitutional: Well developed, well nourished, no acute distress, non-toxic appearance. HENT: Normocephalic, atraumatic, bilateral external ears normal, oropharynx moist, no oral exudates, nose normal. [] Eyes: PERRLA, EOMI, conjunctiva normal, no discharge. [] Neck: Normal range of motion, no tenderness, supple, no stridor. Cardiovascular:Heart rate regular rhythm, no murmur. Pain with palpation of the chest wall. Lungs & Thorax: Bilateral breath sounds clear to auscultation Abdomen: Bowel sounds normal, soft, no tenderness, no masses, no pulsatile masses. [] Skin: Warm, dry, no erythema, no rash. Back: No tenderness, no CVA tenderness. [] Extremities: No tenderness, no cyanosis, no clubbing, ROM intact, no edema. [] Neurologic: Alert and oriented X 3, normal motor function, normal sensory function, no focal deficits noted. Psychologic: Affect normal, judgement normal, mood normal. [] Current Patient Data Vital Signs Vital Signs Date Time Temp Pulse Resp B/P Pulse Ox O2 Delivery O2 Flow Rate FiO2 10/07/16 12:00 97.5 73 18 142/81 98 Room Air 97.5 Lab Values Laboratory Tests Test 10/07/16 11:58 White Blood Count 5.2x10^3/uL (4.0-11.0) Red Blood Count 4.86x10^6/uL (4.30-5.70) Hemoglobin 14.8g/dL (13.0-17.5) Hematocrit 45.2% (39.0-53.0) Mean Corpuscular Volume 93fL (79-100) Mean Corpuscular Hemoglobin 30pg (25-35) Mean Corpuscular Hemoglobin Concent 33g/dL (31-37) Red Cell Distribution Width 13.8% (11.5-14.5) Platelet Count 221x10^3/uL (140-400) Neutrophils (%) (Auto) 61% (31-73) Lymphocytes (%) (Auto) 29% (24-48) Monocytes (%) (Auto) 6% (0-9) Eosinophils (%) (Auto) 3% (0-3) Basophils (%) (Auto) 1% (0-3) Neutrophils # (Auto) 3.2x10^3uL (1.8-7.7) Lymphocytes # (Auto) 1.5x10^3/uL (1.0-4.8) Monocytes # (Auto) 0.3x10^3/uL (0.0-1.1) Eosinophils # (Auto) 0.2x10^3/uL (0.0-0.7) Basophils # (Auto) 0.0x10^3/uL (0.0-0.2) Sodium Level 145mmol/L (136-145) Potassium Level 3.8mmol/L (3.5-5.1) Chloride Level 106mmol/L (98-107) Carbon Dioxide Level 30mmol/L (21-32) Anion Gap 9 (6-14) Blood Urea Nitrogen 11mg/dL (8-26) Creatinine 1.0mg/dL (0.7-1.3) Estimated GFR (Cockcroft-Gault) 92.5 Glucose Level 92mg/dL (70-99) Calcium Level 9.3mg/dL (8.5-10.1) Total Bilirubin 0.3mg/dL (0.2-1.0) Direct Bilirubin < 0.1mg/dL (0.0-0.2) Aspartate Amino Transferase (AST) 18U/L (15-37) Alanine Aminotransferase (ALT) 21U/L (16-63) Alkaline Phosphatase 77U/L (46-116) Troponin I Quantitative < 0.017ng/mL (0.000-0.055) GJ-Ufc-J-Type Natriuretic Peptide 31pg/mL (0-124) Total Protein 7.4g/dL (6.4-8.2) Albumin 3.7g/dL (3.4-5.0) Lipase 239U/L (73-393) Laboratory Tests 10/07/16 11:58 Laboratory Tests 10/07/16 11:58 EKG EKG EKG shows mild repolarization in lead V3 and V4. Sinus rhythm with a regular rate. [place] is leftward. no reciprical depression present. ST segment concavity upwards. [] Radiology/Procedures Radiology/Procedures [] Course & Med Decision Making Course & Med Decision Making Pertinent Labs and Imaging studies reviewed. (See chart for details) [] 61-year-old gentleman presenting to the emergency Department chest pain for 16 hours. Vital signs afebrile with normal heart rate. Mild hypertension present. Pertinent Physical exam showed tenderness to the sternum. EKG shows mild repolarization. Blood work obtained. Chest x-ray unremarkable. Patient was then discharged home to follow up with our cardiology team, Dr. Barber over the next 24-48 hours for further evaluation workup and care. Heart score 3. Calculated for age, 1-2 risk factors, slightly, nonspecific EKG, troponin negative. Dragon Disclaimer Dragon Disclaimer This electronic medical record was generated, in whole or in part, using a voice recognition dictation system. Departure Departure Impression: Primary Impression: Chest pain Disposition: 01 HOME, SELF-CARE Referrals: NO PCP (PCP) SILVESTRE MIKE MD, PRASHANTH S MD follow up in 2-3 days. Patient Instructions: Chest Pain (Nonspecific) Additional Instructions: Thank you for allowing us to participate in your care today. Followup with your primary care physician in 3 days if your symptoms do not improve. If you do not have a primary care provider you can ask for a list of our primary care providers. Return to the emergency department you have any new or concerning findings. This should be evaluated by the primary care physician and any necessary consulting services for continued management within a few days after discharge. Return to emergency room if you have any new or concerning symptoms including but not limited to fever, chills, nausea, vomiting, intractable pain, any new rashes, chest pain, shortness of air, uncontrolled bleeding, difficulty breathing, and/or vision loss. Scripts Aspirin 81 Mg Tab.chew1 Tab PO DAILY #14 TAB Ref 0 Prov:STEPHANIE NAVARRO MD 10/07/16 STEPHANIE NAVARRO MD Oct 07, 2016 12:31
[2016-10-07 12:34] LABS: ALBUMIN 3.7 g/dL (3.4-5.0); ALK PHOS 77 U/L (46-116); ALT (SGPT) 21 U/L (16-63); AST (SGOT) 18 U/L (15-37); DIRECT BILIRUBIN < 0.1 mg/dL (0.0-0.2); TOTAL BILIRUBIN 0.3 mg/dL (0.2-1.0); TOTAL PROTEIN 7.4 g/dL (6.4-8.2)
--- NOTE | 2016-10-07 13:13 | EKG ---
[facility] [address] [place] [address] Test Date: 2016-10-07 Test Time: 12:00:11 Pat Name: ROMAN ROUQE Department: Room: Gender: M Business Supervisor: : 1955 Requested By: STEPHANIE NAVARRO Order Number: [id number] Reading MD: Daisy Fuentes Measurements Intervals [place] Rate: 77 P: 6 DC: 156 QRS: 110 QRSD: 106 T: 33 QT: 354 QTc: 402 Interpretive Statements SINUS RHYTHM. MISSING LEAD V4. OTHERWISE NORMAL EKG Electronically Signed On 10-08-2016 21:19:53 CDT by Daisy Fuentes
== END 2016-10-07 13:10 | disposition home or self-care (01) ==
LOC: ER 11:49
DX: R07.9 Chest pain, unspecified (principal); G89.29 Other chronic pain; F12.10 Cannabis abuse, uncomplicated; I10 Essential (primary) hypertension
CPT/HCPCS: 36415; 71010; 80048; 80076; 83690; 83880; 84484; 85027; 93005; 99285-25

== ENCOUNTER 2016-12-10 07:30 | Day surgery (SDC) | payer MEDICARE, MEDICAID ==
[~2016-12-10] VITALS: Ht 170.2 cm; Wt 81.6 kg
[~2016-12-10 07:30] MED LIST changes: +ASPI81TA2 PO; +BUPIVACAINE MPF 0.5% 30 ML VIAL. ONE; +HYDROmorphone 2 MG/ML VIAL IV PRN; +IV RINGERS,LACTATED 1000ML 1,000 ML IV SCH; +LIDOCAINE 1% 1 ML SYRINGE. ID PRN; +LIDOCAINE 1% 20 ML VIAL. ONE; +MORPHINE SULFATE 2 MG/ML DISP.SYRIN. IV PRN; +ONDANSETRON PF 4 MG/2 ML VIAL. IV PRN; +PROCHLORPERAZINE 10 MG/2 ML VIAL. IV PRN; +fentaNYL PF VIAL 100 MCG/2 ML VIAL IV PRN
--- NOTE | 2016-12-10 07:41 | DISCH ---
DISCHARGE INSTRUCTIONS Condition on Discharge Condition on Discharge: Stable Activity After Discharge Activity Instructions for Disc: Other, see below Bathing Instructions: Shower-keep dressing dry Weight Bearing Status after Di: Touch down weight bearing Diet after Discharge Diet after Discharge: Regular Wound Incision Care Wound/Incision Care: Ice to area for comfort, Keep wound/cast CDI, Change dressing Contacting the DRDipak after DC Call your doctor for: Concerns you may have Follow-Up Follow up with: Ca or Flores in 2wks ESME SCHWARTZ II, MD December 10, 2016 07:41
--- NOTE | 2016-12-10 07:42 | PDOC ---
BRIEF OPERATIVE NOTE Date: December 10, 2016 Pre-Op Diagnosis R hip AVN Post-Op Diagnosis same Procedure Performed R hip core decompression Surgeon Flores Anesthesia Type: General, Local Blood Loss 10mL Complications none ESME SCHWARTZ II, MD December 10, 2016 07:42
[2016-12-10] MEDS ORDERED: BUPIVACAINE MPF 0.5% 30 ML VIAL. ONE (08:31)
[2016-12-10] MEDS ORDERED: LIDOCAINE 1% PF 30 ML VIAL. ONE (08:31)
[2016-12-10] MEDS ORDERED: fentaNYL PF VIAL 250 MCG/5 ML VIAL ONE (09:20)
[2016-12-10] MEDS ORDERED: ONDANSETRON PF 4 MG/2 ML VIAL. ONE (10:31)
[2016-12-10] MEDS ORDERED: DEXAMETHASONE SOD PHOS 20 MG/5 ML VIAL. ONE (10:31)
[2016-12-10] MEDS ORDERED: PROPOFOL 20 ML IV ONE (10:31)
[2016-12-10] MEDS ORDERED: LIDOCAINE 2% PF Vial for OR 5 ML VIAL. ONE (10:31)
[2016-12-10] MEDS ORDERED: SEVOFLURANE 31 TO 60 MINUTES. IH ONE (10:31)
[2016-12-10] MEDS: fentaNYL PF VIAL 100 MCG/2 ML VIAL IV PRN ×2 (10:58→11:16)
[2016-12-10] MEDS ORDERED: oxyCODONE/APAP 10/325 1 TAB TABLET PO ONE (11:00)
[2016-12-10 12:10] VITALS: BP 146/82
--- NOTE | 2016-12-12 15:16 | OP ---
DATE OF SURGERY: 12/10/2016 SURGEON: Carl Schwartz MD SENIOR CORPORATE RECRUITER: None. PREOPERATIVE DIAGNOSIS: Bilateral hip avascular necrosis. POSTOPERATIVE DIAGNOSIS: Bilateral hip avascular necrosis. PROCEDURE PERFORMED: Core decompression of right hip using a 3.2-mm guidewire. COMPLICATIONS: None. ESTIMATED BLOOD LOSS: 5 mL. REASON FOR PROCEDURE: The patient is a very pleasant 61-year-old with bilateral hip AVN. We had previously performed a core decompression on his left side, which helped his pain. During his followup, he had been complaining of more right-sided groin pain. His MRI was reviewed, he had a little bit more advanced disease, and I told him that we cannot guarantee the same outcome as we had on his left side, but that proceeding is not totally unreasonable on the right side. After discussing the risks, benefits, and alternatives, he elected to proceed with the above surgery on his right hip. DESCRIPTION OF PROCEDURE: The patient was greeted in the preoperative area, where the correct site was marked. He was taken back to the operative suite and antibiotics were started en route. Once in the OR, he had successful induction of general anesthesia and then we transferred him to the fracture table and secured him to the bed with all pressure points padded. Peroneal padded post was used, but no traction was used during this case. We then proceeded to prep and drape the right lower extremity and hip in our usual sterile fashion and then we conducted a standard preoperative timeout. I brought in C-arm to obtain a good trajectory into the lesion, as well as marking a spot from my skin incision adjacent to the lesser trochanter. I then made a stab incision in his lateral thigh in line with his lesser trochanter and then, I palpated with the guide pin for the anterior and posterior margin of the proximal femur and I then used biplanar fluoroscopy to advance the guide pin for three passes in 2 different areas through the lesion. After this, through the guide pin. I injected local anesthetic around the incision. I then closed the skin incision with a single simple interrupted nylon suture. Steri-Strips and sterile dressings were then applied. He tolerated the surgery well. At the conclusion of the surgery, he was awakened from anesthesia, transferred gently supine to the recovery room cart and taken to PACU in stable and extubated condition. Postop plan is for him to be toe-touch weightbearing on his right lower extremity, and he will follow up with me in 2 weeks, sooner should problems arise. We will discharge him home today. CARL SCHWARTZ MD DR: SARAHI/shahbaz JOB#: [id number] / [id number] REYNALDO
== END 2016-12-10 12:16 | disposition home or self-care (01) ==
LOC: SURG 07:30
PROVIDERS: ATTEND Orthopaedic Surgery Sports Medicine
DX: M87.852 Other osteonecrosis, left femur (principal); M87.851 Other osteonecrosis, right femur; Z86.69 Personal history of other diseases of the nervous system and sense organs; Z87.39 Personal history of other diseases of the musculoskeletal system and connective tissue; Z72.89 Other problems related to lifestyle; F17.200 Nicotine dependence, unspecified, uncomplicated
CPT/HCPCS: 27299; 76000; A4215; C1713; C1887; J0690; J1100; J2405; J2704; J3010; J3490

== ENCOUNTER → 2017-06-15 | Outpatient (CLI) | payer MEDICARE ==
[~2017-06-15] MED LIST changes: +ASPI-630 PO; -ASPI81TA2 PO; -BUPIVACAINE MPF 0.5% 30 ML VIAL. ONE; -HYDR-2666 PO; +HYDR-2758 PO; -HYDR2TAB13 PO; +HYDR2TAB31 PO; -HYDROmorphone 2 MG/ML VIAL IV PRN; -IV RINGERS,LACTATED 1000ML 1,000 ML IV SCH; -LIDOCAINE 1% 1 ML SYRINGE. ID PRN; -LIDOCAINE 1% 20 ML VIAL. ONE; -MORPHINE SULFATE 2 MG/ML DISP.SYRIN. IV PRN; -ONDANSETRON PF 4 MG/2 ML VIAL. IV PRN; -OXYC-250 PO; +OXYC-328 PO; -PROCHLORPERAZINE 10 MG/2 ML VIAL. IV PRN; -fentaNYL PF VIAL 100 MCG/2 ML VIAL IV PRN
[2017-06-15 09:17] LABS: BASO % 0 % (0-3); EOS % 4 % (0-3); HEMOGLOBIN 16.1 g/dL (13.0-17.5); LYMPH # 1.5 x10^3/uL (1.0-4.8); LYMPH % 31 % (24-48); MEAN CORPUSCULAR HEMOGLOBIN 31 pg (25-35); MEAN CORPUSCULAR HGB CONC 33 g/dL (31-37); MEAN CORPUSCULAR VOLUME 95 fL (79-100); MONO % 10 % (0-9); NEUT % 54 % (31-73); PLATELET COUNT 212 x10^3/uL (140-400); RED BLOOD COUNT 5.17 x10^6/uL (4.30-5.70); RED CELL DISTRIBUTION WIDTH 13.8 % (11.5-14.5); WHITE BLOOD COUNT 4.7 x10^3/uL (4.0-11.0)
[2017-06-15 09:27] LABS: PROTHROMBIN TIME PATIENT 12.5 SEC (11.7-14.0)
[2017-06-15 09:28] LABS: ALBUMIN 3.7 g/dL (3.4-5.0); CALCIUM 9.2 mg/dL (8.5-10.1); CREATININE 1.1 mg/dL (0.7-1.3); GFR 82.6; POTASSIUM 3.9 mmol/L (3.5-5.1)
[2017-06-15 12:25] LABS: BILIRUBIN,URINE NEGATIVE (NEG); GLUCOSE,URINE NEGATIVE (NEG); NITRITE,URINE NEGATIVE (NEG); PROTEIN,URINE NEGATIVE (NEG-TRACE); UROBILINOGEN,URINE 0.2 mg/dL (0.2 mg/dL)
[2017-06-15 12:42] LABS: BACTERIA,URINE FEW /HPF (0-FEW); RBC,URINE 0 /HPF (0-2); SQUAMOUS EPITHELIAL CELL,UR FEW /LPF
--- NOTE | 2017-06-15 12:51 | EKG ---
[facility] [address] [place] [address] Test Date: 2017-06-15 Test Time: 12:47:46 Pat Name: ROMAN ROQUE Department: Room: Gender: M Tie Puller: AT : 1955 Requested By: ESME SCHWARTZ Order Number: [id number] Reading MD: Mk Barber MD Measurements Intervals [place] Rate: 69 P: 16 NC: 164 QRS: 118 QRSD: 106 T: 37 QT: 376 QTc: 404 Interpretive Statements SINUS RHYTHM RBBB Electronically Signed On 06-16-2017 11:38:27 SPECIAL SYSTEMS TECHNICIAN by Mk Barber MD
--- NOTE | 2017-06-15 13:27 | RAD ---
Indication: Preop for hip replacement surgery. Time of exam 1313 hours. Correlation is made with prior study from 10/07/2016. Calcified granuloma left lung base is stable. The heart size is normal. The lungs are clear. The pulmonary vascularity is normal. No infiltrate, effusion or pneumothorax is detected. Impression: No acute cardiopulmonary process is detected.
== END | disposition home or self-care (01) ==
LOC: SURGPAT 12:45
PROVIDERS: ATTEND Orthopaedic Surgery Sports Medicine
DX: Z01.818 Encounter for other preprocedural examination (principal); J84.10 Pulmonary fibrosis, unspecified; I45.10 Unspecified right bundle-branch block; Z96.641 Presence of right artificial hip joint; Z72.0 Tobacco use
CPT/HCPCS: 36415; 71020; 80048; 81001; 82040; 85025; 85610; 85651; 85730; 87641; 93005

== ENCOUNTER → 2017-06-26 | Outpatient (CLI) | payer MEDICARE ==
[~2017-06-26] MED LIST changes: +REGADENOSON 0.4 MG/5 ML DISP.SYRIN. IV ONE
--- NOTE | 2017-06-26 12:53 | RAD ---
APPROVED REPORT Test Type: Pharmacological Stress Nurse/Tech: Ilene Johnson R.N. Test Indications: pre-op hip replacement Cardiac History: smoker- occaisional cigar. Medications: See Electronic Medical Record Medical History: See Electronic Medical Record Resting ECG: SR Resting Heart Rate: 58 bpm Resting Blood Pressure: 133/70mmHg Pretest Chest Pain: None Nurse/Tech Notes S1S2, lungs CTA Consent: The procedure was explained to the patient in lay terms. Informed consent was witnessed. Preet eout was entered into Contently. History and Stress Test performed by RT Angelito (R) (N) Pharm. Details Pharmacologic stress testing was performed using 0.4mg per 5ml of regadenoson given intravenously ove r 7-10 seconds. Stress Symptoms slight SOB and queasiness for about 1-2 minutes. notified melva WESLEY about abnormal ST elevation at 1 120. will have view test results before allowing pt to go home after resting images. POST EXERCISE Reason for Termination: Infusion complete Max HR: 81 bpm Max Blood Pressure: 148/76mmHg Blood Pressure response to exercise: Normal blood pressure response during stress. Heart Rate response to exercise: wnl Chest Pain: No. Arrhythmia: No. ST Change: No. no changes from abnormal baseline levels noted above INTERPRETATION Stress EKG Conclusion: No evidence of stress induced EKG changes. Imaging Protocol IMAGE PROTOCOL: Rest Tc-99m/stress Tc-99m 1 day Rest: Stress: Viability: Radiopharm.Tc99m [id number] Sestamibi Dose11.3mCi 32mCi Duration 15min. 10min. Img Date 06/26/2017 06/26/2017 Inj-Img [id number]. 60min. Rest Admin Site:IV - Right HandAdministrator:STACY Velázquez Stress Admin Site: IV - Right HandAdministrator: IBAN Ram, ARRT (R)(N) STRESS DATA End Diast. Vol.127.0mlAv. Heart Rate69.0bpm End Syst. Vol.35.0mlCO Index BSA0.0L/min Myocardial Uchk637.0gEject. Hkdbfnfh78.0% Stress Rates Pk. Fill Rate2.65EDV/secLVtime Pk. Fill 181.44msec Pk. Empty Rate3.92ESV/secLVtime Pk. Exekh668.08msec / Pk. Fill1.62EDV/sec Stress Scores Regional WT0.00Summed WT0.00 Regional WM0.00Summed WM0.00 The rest and stress images show normal perfusion, normal contraction and thickening. LV Perf. Quant 17 Seg. SSS0.00 17 Seg. SRS0.00 17 Seg. SDS0.00 Stress Defect Extent (% LAD)0.00Rest Defect Extent (% LAD)0.00Rev. Defect Extent (% LAD)0.00 Stress Defect Extent (% LCX) 0.00Rest Defect Extent (% LCX)0.00Rev. Defect Extent (% LCX)0.00 Stress Defect Extent (% RCA)0.00Rest Defect Extent (% RCA)0.00Rev. Defect Extent (% RCA)0.00 Stress Defect Extent (% FABIAN)0.00Rest Defect Extent (% FABIAN)0.00Rev. Defect Extent (% FABIAN)0.00 Other Information Quality:Good Risk Assessment: Low Risk Conclusion 1. No evidence of stress induced EKG changes. Baseline J-point elevation stable throughout vasodilato r infusion. 2. Normal perfusion at stress/rest. EF 60% 3. Low risk study.
== END | disposition home or self-care (01) ==
LOC: NM 08:42
PROVIDERS: ATTEND Internal Medicine Cardiovascular Disease
DX: Z01.818 Encounter for other preprocedural examination (principal)
CPT/HCPCS: 78452; 93017; 96374; 96375; 96376; A9500; J2785

== ENCOUNTER 2017-07-06 09:30 | Emergency (ER) | payer MEDICARE ==
[~2017-07-06] VITALS: Ht 170.2 cm; Wt 82.6 kg
[~2017-07-06 09:30] MED LIST changes: -REGADENOSON 0.4 MG/5 ML DISP.SYRIN. IV ONE
[2017-07-06] MEDS ORDERED: oxyCODONE/APAP 5/325 1 TAB TABLET PO ONE (10:30)
--- NOTE | 2017-07-06 10:32 | RAD ---
Indication: Pain after a fall today. Technique: Right knee series contains 4 images. No comparison is available. Findings: There is no fracture or dislocation. There is no joint effusion. There may be minimal prepatellar soft tissue swelling. Impression: Negative for fracture.
--- NOTE | 2017-07-06 11:07 | PHYS DOC ---
Past Medical History Past Medical History: Other Additional Past Medical Histor: chronic back pain Past Surgical History: Hip Replacement, Lumbar Laminectomy, Other Additional Past Surgical Histo: back surgery- hardware, inguinal hernia Alcohol Use: None Drug Use: None Adult General Chief Complaint Chief Complaint: KNEE INJURY [facility] HPI Patient is a 62 year old male who presents with right knee pain after having a fall today. The patient is recovering from hip surgery and is supposed to be going to [facility] for rehabilitation. When he fell today he was instructed to go to the emergency department and have the knee checked out before he presented to [facility]. He took oxycodone for his post surgical pain with his last dose being last night. He denies any other injury. Review of Systems Review of Systems Constitutional: Denies fever or chills [] Respiratory: Denies cough or shortness of breath [] Cardiovascular: No additional information not addressed in HPI [] Musculoskeletal: see history of present illness Integument: Denies rash or skin lesions [] Neurologic: Denies headache, focal weakness or sensory changes [] Endocrine: Denies polyuria or polydipsia [] All other systems were reviewed and found to be within normal limits, except as documented in this note. Current Medications Current Medications Current Medications Medications (Trade) Dose Ordered Sig/Michael Start Time Stop Time Status Last Admin Dose Admin Oxycodone/ Acetaminophen (Percocet 5/325) 1 tab 1X ONCE 07/06/17 10:30 07/06/17 10:31 DC 07/06/17 10:31 1 TAB Allergies Allergies Allergies Coded Allergies Type Severity Reaction Last Updated Verified No Known Drug Allergies 06/29/17 No Physical Exam Physical Exam Constitutional: Well developed, well nourished, no acute distress, non-toxic appearance. [] Cardiovascular:Heart rate regular rhythm, no murmur [] Lungs & Thorax: Bilateral breath sounds clear to auscultation [] Skin: Warm, dry, no erythema, no rash. [] Extremities: Generalized tenderness to the right knee with palpation, there is no erythema, ecchymosis or decreased range of motion noted Neurologic: Alert and oriented X 3, normal motor function, normal sensory function, no focal deficits noted. [] Psychologic: Affect normal, judgement normal, mood normal. [] Current Patient Data Vital Signs Vital Signs Date Time Temp Pulse Resp B/P (MAP) Pulse Ox O2 Delivery O2 Flow Rate FiO2 07/06/17 09:54 97.7 70 22 130/71 (90) 98 Room Air 97.7 EKG EKG [] Radiology/Procedures Radiology/Procedures [] Course & Med Decision Making Course & Med Decision Making Pertinent Labs and Imaging studies reviewed. (See chart for details) []1. Knee pain An Alex wrap has been applied to your knee. Please continue with your admission to [facility] placed to continue rehabilitation on your hip. You may continue to take your home medications. Dragon Disclaimer Dragon Disclaimer This electronic medical record was generated, in whole or in part, using a voice recognition dictation system. Departure Departure Impression: Primary Impression: Knee pain Disposition: 01 HOME, SELF-CARE Condition: STABLE Patient Instructions: Knee Pain, [id number] Additional Instructions: Follow-up with your primary care provider in 3 days if not improving or return to the ED if worsening. NEERU DAVILA APRN Jul 06, 2017 11:07
[2017-07-06 11:30] VITALS: BP 126/69
== END 2017-07-06 13:04 | disposition home or self-care (01) ==
LOC: ER 09:30
DX: M25.561 Pain in right knee (principal); G89.29 Other chronic pain; Z96.649 Presence of unspecified artificial hip joint; W18.39XA Other fall on same level, initial encounter; Y93.89 Activity, other specified; Y92.89 Other specified places as the place of occurrence of the external cause; Y99.8 Other external cause status
CPT/HCPCS: 73564; 99284

== ENCOUNTER 2017-07-24 12:52 | Emergency (ER) | payer MEDICARE ==
[2017-07-24] MEDS: oxyCODONE/APAP 7.5/325 1 TAB TABLET PO (13:50)
== END 2017-07-24 15:42 | disposition home or self-care (01) ==
LOC: ER 12:52
DX: S80.02XA Contusion of left knee, initial encounter (principal); S80.01XA Contusion of right knee, initial encounter; R05 Cough; G89.29 Other chronic pain; Z96.641 Presence of right artificial hip joint; W01.0XXA Fall on same level from slipping, tripping and stumbling without subsequent striking against object, initial encounter; Y93.89 Activity, other specified; Y99.8 Other external cause status; Y92.091 Bathroom in other non-institutional residence as the place of occurrence of the external cause
CPT/HCPCS: 71010; 72170; 73560; 99284

== ENCOUNTER → 2017-11-17 | Outpatient (CLI) | payer MEDICARE | END | disposition home or self-care (01) | LOC: KCIC 11:09 | DX: S49.92XA Unspecified injury of left shoulder and upper arm, initial encounter (principal); X58.XXXA Exposure to other specified factors, initial encounter; Y93.89 Activity, other specified; Y92.89 Other specified places as the place of occurrence of the external cause; Y99.8 Other external cause status | CPT/HCPCS: 73030 ==

== ENCOUNTER → 2018-02-08 | Outpatient (CLI) | payer MEDICARE ==
[2018-02-08] MEDS: LIDOCAINE WITH 8.4% SOD BICARB 3 ML DISP.SYRIN. INJ (14:30)
[2018-02-08] MEDS: BUPIVACAINE 0.5% 50 ML VIAL. INJ (14:31)
[2018-02-08] MEDS: methylPREDNISolone ACETATE 80 MG/ML VIAL. INJ (14:31)
[2018-02-08] MEDS: IOHEXOL 300 MG/ML 50 ML VIAL. INT ART (14:31)
== END | disposition home or self-care (01) ==
LOC: RAD 13:29
DX: M25.552 Pain in left hip (principal); M75.22 Bicipital tendinitis, left shoulder; M19.012 Primary osteoarthritis, left shoulder; F41.9 Anxiety disorder, unspecified; Z72.89 Other problems related to lifestyle; Z87.891 Personal history of nicotine dependence; Z84.1 Family history of disorders of kidney and ureter; M75.112 Incomplete rotator cuff tear or rupture of left shoulder, not specified as traumatic; Z98.890 Other specified postprocedural states
CPT/HCPCS: 20610; 73221; 77002; J1040; J3490; Q9967

== ENCOUNTER 2018-02-16 06:19 | Emergency (ER) | payer MEDICARE ==
[2018-02-16] MEDS: predniSONE 10 MG TABLET PO (07:27)
[2018-02-16] MEDS: oxyCODONE/APAP 5/325 1 TAB TABLET PO (07:28)
[2018-02-16] MEDS: KETOROLAC 60 MG/2 ML INJ. IM (07:35)
[2018-02-16] MEDS: ORPHENADRINE CITRATE 60 MG/2 ML VIAL. IM (07:39)
[2018-02-16] MEDS: LIDOCAINE (700MG/PATCH) PATCH. TD (07:40)
== END 2018-02-16 08:14 | disposition home or self-care (01) ==
LOC: ER 06:19
DX: G89.29 Other chronic pain (principal); M54.5 Low back pain; M25.552 Pain in left hip; Z96.649 Presence of unspecified artificial hip joint; Z98.890 Other specified postprocedural states
CPT/HCPCS: 96372; 99284; J1885; J2360; J7512

== ENCOUNTER → 2018-04-13 | Outpatient (CLI) | payer MEDICARE ==
[2018-02-16 07:42] VITALS: BP 150/84
[~2018-04-13] MED LIST changes: +CIPR500T94 PO; +GADOBUTROL 7.5 MMOL/7.5 ML VIAL IV ONE; +NAPR-514 PO; +ORPH100T PO; +OXYC-323 PO; +PRED20TA PO; +TRAZ-86 PO; -TRAZ100T12 PO
--- NOTE | 2018-04-13 16:55 | RAD ---
MRI Lumbar Spine without and with contrast History: Chronic low back pain, necrosis left hip Technique: Multiplanar, multi sequential pre and postcontrast MR imaging was performed of the lumbar spine. Contrast: 7.5 cc Gadavist Comparison: June 25, 2016 Findings: There is some motion degradation There again has been posterolateral fusion L3, L4, L5, S1 at which there are bilateral pedicle screws attached to vertical rods. Exam does not accurately evaluate integrity of hardware. There is persistent nonspecific posterior paraspinous soft tissue edema, previously seen fluid collection posterior soft tissues decreased in size, small residual fluid collection on the left at the L4 level about 2.3 cm longitudinal by 0.6 cm AP by 1.6 cm transverse. There is no new significant marrow edema, some artifact created by hardware. There is again multilevel narrowing of the intervertebral disc spaces greatest at L5-S1 and L4-5 and to lesser degree at L3-4 and L2-3. L2-3 degenerative disc disease has progressed in the interval. Conus terminates at L1-L2. Vertebral body stature is preserved. There is negligible posterior subluxation L2 relative L3. There is no nodular enhancement of the conus or cauda equina. There is no significant enhancement in the intervertebral disc spaces. L2-L3: There is disc osteophyte complex and bulge. There is posterior annular tear. There is mild to moderate buckling of the ligamentum flavum and mild facet hypertrophic change. There is increased overall mild spinal stenosis, lateral recess stenosis bilaterally. There is mild left and dyfi-bk-hzloxxsf right neural foramina compromise greater than previously. L3-L4: There again has been left laminectomy. Spinal canal is overall adequate. Left neural foramen is adequate, minimal narrowing of the right neural foramen. L4-L5: There again has been posterior decompression, spinal canal are adequate. Neural foramina are somewhat poorly visualized due to artifact from hardware, probable pufl-vq-cejvylzw narrowing on the left and very mild narrowing on the right. L5-S1: Spinal canal is adequate. Neural foramina are somewhat poorly characterized due to motion. There is probable mild neural foramina compromise bilaterally. Impression: 1. There again has been posterolateral fusion L3-S1, also posterior decompression L4-5 and left laminectomy L3-4. Previously seen fluid collection in the posterior soft tissues has decreased in size. There is increased mild spinal stenosis at L2-3, degenerative disc disease at this level progressed in the interval. There also increased right greater than left L2-3 neural foramina compromise. There is multilevel lumbar degenerative disc disease. Electronically signed by: Bin Marrufo MD (04/13/2018 4:52 PM) [facility]
--- NOTE | 2018-04-13 17:25 | RAD ---
EXAM: MRI LEFT HIP with and without IV contrast DATE: 04/13/2018 3:30 PM CLINICAL INDICATION: Left femoral head osteonecrosis COMPARISON: MRI pelvis 08/08/2016, radiograph 01/21/2018 TECHNIQUE: Multiplanar multisequence MR imaging of the left hip was performed before and after the administration of IV contrast. FINDINGS: No left hip joint effusion. No significant trochanteric bursal edema. [place] T1 hypointense signal within the left femoral head is grossly stable in size and configuration when compared to prior MRI 08/08/2016, consistent with osteonecrosis. No definite collapse is seen. Minimal associated left femoral head edema is noted, unchanged. Associated degenerative changes of the left hip is seen with degenerative cystic change within the left femoral head and left acetabulum most prominent anteriorly.Chondral thinning is seen superiorly. Evaluation of the labrum is limited on this nonarthrographic study. Within these constraints, no discrete labral tear is identified. The tendinous attachments of the gluteus medius, minimus, and rectus femoris are grossly unremarkable. Mild increased signal and thickening at the left hamstring attachment suggesting mild tendinosis. No discrete tear is identified. Alicia-articular soft tissues: Negative periarticular mass lesion or focal muscular atrophy. Limited survey of pelvis: Limited survey of the visceral contents of the pelvis within normal limits. IMPRESSION: 1. 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 Mild left hamstring tendinosis. Electronically signed by: Connor Nelson MD (04/13/2018 5:21 PM) [facility]
== END | disposition home or self-care (01) ==
LOC: MRI 14:26
DX: M48.061 Spinal stenosis, lumbar region without neurogenic claudication (principal); M51.36 Other intervertebral disc degeneration, lumbar region; M25.78 Osteophyte, vertebrae; M87.852 Other osteonecrosis, left femur; M16.7 Other unilateral secondary osteoarthritis of hip; M76.892 Other specified enthesopathies of left lower limb, excluding foot; M19.012 Primary osteoarthritis, left shoulder; Z96.641 Presence of right artificial hip joint; Z87.891 Personal history of nicotine dependence; Z87.39 Personal history of other diseases of the musculoskeletal system and connective tissue; Z82.49 Family history of ischemic heart disease and other diseases of the circulatory system; Z84.1 Family history of disorders of kidney and ureter
CPT/HCPCS: 72158; 73723; A9585

== ENCOUNTER → 2018-05-05 | Outpatient (CLI) | payer MEDICARE ==
[2018-02-16 07:42] VITALS: BP 150/84
[~2018-05-05] MED LIST changes: -GADOBUTROL 7.5 MMOL/7.5 ML VIAL IV ONE
[2018-05-05 11:31] LABS: BASO % 1 % (0-3); EOS # 0.1 x10^3/uL (0.0-0.7); EOS % 1 % (0-3); HEMATOCRIT 48.2 % (39.0-53.0); HEMOGLOBIN 16.3 g/dL (13.0-17.5); LYMPH # 1.2 x10^3/uL (1.0-4.8); LYMPH % 18 % (24-48); MEAN CORPUSCULAR HEMOGLOBIN 32 pg (25-35); MEAN CORPUSCULAR HGB CONC 34 g/dL (31-37); MEAN CORPUSCULAR VOLUME 93 fL (79-100); MONO # 0.3 x10^3/uL (0.0-1.1); MONO % 5 % (0-9); NEUT % 75 % (31-73); PLATELET COUNT 235 x10^3/uL (140-400); RED BLOOD COUNT 5.17 x10^6/uL (4.30-5.70); RED CELL DISTRIBUTION WIDTH 13.4 % (11.5-14.5); WHITE BLOOD COUNT 6.7 x10^3/uL (4.0-11.0)
[2018-05-05 11:32] LABS: BILIRUBIN,URINE NEGATIVE (NEG); CLARITY,URINE CLEAR; COLOR,URINE YELLOW; NITRITE,URINE NEGATIVE (NEG); PROTEIN,URINE NEGATIVE (NEG-TRACE); UROBILINOGEN,URINE 0.2 mg/dL (0.2 mg/dL)
[2018-05-05 11:36] LABS: ALBUMIN 4.2 g/dL (3.4-5.0); CALCIUM 9.2 mg/dL (8.5-10.1); GFR 91.9; POTASSIUM 3.8 mmol/L (3.5-5.1); PROTHROMBIN TIME PATIENT 12.6 SEC (11.7-14.0)
[2018-05-05 11:44] LABS: RBC,URINE OCC /HPF (0-2); WBC,URINE OCC /HPF (0-4)
[2018-05-05 11:45] LABS: BACTERIA,URINE FEW /HPF (0-FEW); SQUAMOUS EPITHELIAL CELL,UR FEW /LPF
--- NOTE | 2018-05-05 12:45 | RAD ---
AP and Lateral Views of the Chest 05/05/2018 11:38 AM Indication: PRE-OP CHEST , HIP SURGERY Comparison: Chest radiograph July 24, 2017 Findings: Small calcified granuloma noted left lower lobe. There is no acute focal consolidation or infiltrate identified. The heart size is normal. There is no evidence of pneumothorax or pleural effusion. No acute osseous abnormalities are identified. Impression: No evidence of acute cardiopulmonary process. Electronically signed by: Ehsan Chavez MD (05/05/2018 12:42 PM) [facility]
== END | disposition home or self-care (01) ==
LOC: SURGPAT 10:04
PROVIDERS: ATTEND Orthopaedic Surgery Sports Medicine
DX: Z01.818 Encounter for other preprocedural examination (principal); J98.4 Other disorders of lung; F41.9 Anxiety disorder, unspecified; F17.200 Nicotine dependence, unspecified, uncomplicated; Z72.89 Other problems related to lifestyle
CPT/HCPCS: 36415; 71046; 80048; 81001; 82040; 85025; 85610; 85651; 85730; 87641

== ENCOUNTER 2018-09-06 03:45 | Emergency (ER) | payer MEDICARE ==
[~2018-09-06] VITALS: Ht 170.2 cm; Wt 81.6 kg
[~2018-09-06 03:45] MED LIST changes: -HYDR-2758 PO; +HYDR-2761 PO; -OXYC-323 PO; -OXYC-328 PO; +OXYC1TAB15 PO; +OXYC1TAB22 PO
[2018-09-06 03:52] VITALS: BP 147/79
--- NOTE | 2018-09-06 04:13 | PHYS DOC ---
Past Medical History Past Medical History: Other Additional Past Medical Histor: chronic back pain, Chronic hip pain Past Surgical History: Hip Replacement, Lumbar Laminectomy, Other Additional Past Surgical Histo: back surgery- hardware, inguinal hernia Alcohol Use: Occasionally Drug Use: Marijuana Adult General Chief Complaint Chief Complaint: SORE THROAT HPI HPI Patient is a 63 year old male who presents with sore throat, cough, nasal congestion for the past 2 days. Denies any specific chest pains or palpitations. Patient reports feeling of fever but did not take his temperature yesterday. Has not taken any medicines to help with the cough or sore throat. Symptoms are moderate in severity. Patient did receive the flu vaccine this season. He has been exposed to sick family members with similar complaints, specifically his granddaughter. [] Review of Systems Review of Systems Constitutional: Denies fever or chills [] Eyes: Denies change in visual acuity, redness, or eye pain [] HENT: See history of present illness[] Respiratory: See history of present illness[] Cardiovascular: Denies chest pain on exertion, nor palpitations[] GI: Denies abdominal pain, nausea, vomiting, bloody stools or diarrhea [] : Denies dysuria or hematuria [] Musculoskeletal: Denies back pain or joint pain [] Integument: Denies rash or skin lesions [] Neurologic: Denies headache, focal weakness or sensory changes [] Endocrine: Denies polyuria or polydipsia [] All other systems were reviewed and found to be within normal limits, except as documented in this note. Allergies Allergies Allergies Coded Allergies Type Severity Reaction Last Updated Verified No Known Drug Allergies 06/07/18 No Physical Exam Physical Exam Constitutional: Well developed, well nourished, no acute distress, non-toxic appearance. [] HENT: Normocephalic, atraumatic, bilateral external ears normal, oropharynx moist, no oral exudates, nose normal. [] Eyes: PERRLA, EOMI, conjunctiva normal, no discharge. [] Neck: Normal range of motion, no tenderness, supple, no stridor. [] Cardiovascular:Heart rate regular rhythm, no murmur [] Lungs & Thorax: Bilateral breath sounds clear to auscultation [] Abdomen: Bowel sounds normal, soft, no tenderness, no masses, no pulsatile masses. [] Skin: Warm, dry, no erythema, no rash. [] Back: No tenderness, no CVA tenderness. [] Extremities: No tenderness, no cyanosis, no clubbing, ROM intact, no edema. [] Neurologic: Alert and oriented X 3, normal motor function, normal sensory function, no focal deficits noted. [] Psychologic: Affect normal, judgement normal, mood normal. [] Current Patient Data Vital Signs Vital Signs Date Time Temp Pulse Resp B/P (MAP) Pulse Ox O2 Delivery O2 Flow Rate FiO2 09/06/18 03:52 98.6 82 17 147/79 (101) 96 Room Air 98.6 EKG EKG [] Radiology/Procedures Radiology/Procedures Chest x-ray shows no infiltrate, no effusion, no pneumothorax. No acute changes from chest x-ray of 05/05/2018[] Course & Med Decision Making Course & Med Decision Making Pertinent Labs and Imaging studies reviewed. (See chart for details) Medical decision making: There is no evidence of pneumonia or pneumothorax. We' ll cover the patient for upper respiratory infection/pharyngitis/sinusitis. There is no evidence of hypoxia[] Dragon Disclaimer Dragon Disclaimer This electronic medical record was generated, in whole or in part, using a voice recognition dictation system. Departure Departure Impression: Primary Impression: Upper respiratory infection Additional Impression: Pharyngitis Disposition: 01 HOME, SELF-CARE Condition: IMPROVED Referrals: KHUSHBU LIND APRN (PCP) Follow-up in 2 days Patient Instructions: Upper Respiratory Infection, Adult, Viral and Bacterial Pharyngitis Additional Instructions: Drink plenty of fluids. Follow-up with your regular doctor in 2 days. Return to the ER if worsening discomfort, difficulty breathing, or any other concerns. Scripts Ibuprofen (IBUPROFEN) 600 Mg Tablet 600 MG PO PRN Q6HRS PRN for MILD PAIN / TEMP, #20 TAB take with food or milk Prov: ZAIN VIERA DO 09/06/18 Doxycycline Hyclate (DOXYCYCLINE HYCLATE) 100 Mg Tablet 100 MG PO BID, #20 TAB Prov: ZAIN VIERA DO 09/06/18 D-Methorphan Hb/Prometh Hcl (PROMETHAZINE-DM SYRUP) 118 Ml Syrup 5 ML PO PRN Q4HRS, #120 ML Prov: ZAIN VIERA DO 09/06/18 Problem Qualifiers Primary Impression: Upper respiratory infection URI type: unspecified URI Qualified Codes: J06.9 - Acute upper respiratory infection, unspecified Additional Impression: Pharyngitis Pharyngitis/tonsillitis etiology: unspecified etiology Qualified Codes: J02.9 - Acute pharyngitis, unspecified ZAIN VIERA DO Sep 06, 2018 04:13
[2018-09-06] MEDS ORDERED: D-ME118S2 PO (04:39)
[2018-09-06] MEDS ORDERED: DOXY100T PO (04:39)
[2018-09-06] MEDS ORDERED: IBUP-1007 PO (04:39)
[2018-09-06] MEDS: IBUPROFEN 400 MG TABLET. PO ONE (04:58)
--- NOTE | 2018-09-06 05:14 | RAD ---
CHEST PA LATERAL Technique: PA and lateral views of the chest were obtained. Clinical History: Productive cough Comparison: None. Findings: The heart and pulmonary vasculature appear within normal limits. There is a calcified granuloma left and there is a few chronic linear opacities on the right. The pleural margins are clear. Impression: No acute chest process is seen. Electronically signed by: Blas Denny III, MD (09/06/2018 5:09 AM) [facility]
== END 2018-09-06 05:01 | disposition home or self-care (01) ==
LOC: ER 03:45
DX: J02.9 Acute pharyngitis, unspecified (principal); G89.29 Other chronic pain
CPT/HCPCS: 71046; 99283

== ENCOUNTER 2018-10-13 08:53 | Observation (INO) | payer MEDICARE ==
[~2018-10-13] VITALS: Ht 170.2 cm; Wt 81.9 kg
[~2018-10-13 08:53] MED LIST changes: +D-ME118S2 PO; +DOXY100T PO; +IBUP-1007 PO
--- NOTE | 2018-10-13 09:23 | RAD ---
PROCEDURE: PORTABLE CHEST 1V CLINICAL INDICATION: CHEST PAIN COMPARISON: 09/06/2018 FINDINGS: No pneumothorax identified. Cardiac and mediastinal contours unremarkable. No pulmonary consolidation or acute airspace disease. No acute osseous abnormalities identified. Calcified granuloma in the left lower lobe. IMPRESSION: No pulmonary consolidation or acute airspace disease. Electronically signed by: Oscar Oliveros DO (10/13/2018 9:20 AM) [facility]
[2018-10-13] MEDS ORDERED: LIDO:MAALOX 1:1 20 ML SINGLE DOSE. SWSW ONE (09:30)
[2018-10-13 09:36] LABS: BASO % 1 % (0-3); EOS # 0.1 x10^3/uL (0.0-0.7); EOS % 2 % (0-3); HEMATOCRIT 42.2 % (39.0-53.0); HEMOGLOBIN 13.8 g/dL (13.0-17.5); LYMPH # 0.7 x10^3/uL (1.0-4.8); LYMPH % 13 % (24-48); MEAN CORPUSCULAR HEMOGLOBIN 30 pg (25-35); MEAN CORPUSCULAR HGB CONC 33 g/dL (31-37); MEAN CORPUSCULAR VOLUME 91 fL (79-100); MONO # 0.6 x10^3/uL (0.0-1.1); MONO % 11 % (0-9); NEUT % 73 % (31-73); PLATELET COUNT 172 x10^3/uL (140-400); RED BLOOD COUNT 4.65 x10^6/uL (4.30-5.70); RED CELL DISTRIBUTION WIDTH 13.8 % (11.5-14.5); WHITE BLOOD COUNT 5.4 x10^3/uL (4.0-11.0)
--- NOTE | 2018-10-13 09:42 | EKG ---
[facility] [address] [place] [address] Test Date: 2018-10-13 Test Time: 09:01:32 Pat Name: ROMAN ROQUE Department: Room: Gender: M Health Worker: [place] : 1955 Requested By: KRISTIAN THOMASON Order Number: [id number] Reading MD: Mk Barber MD Measurements Intervals [place] Rate: 66 P: 34 TX: 172 QRS: 92 QRSD: 100 T: 28 QT: 360 QTc: 379 Interpretive Statements SINUS RHYTHM INCOMPLETE RIGHT BUNDLE BRANCH BLOCK Electronically Signed On 10-13-2018 17:52:11 CDT by Mk Barber MD
--- NOTE | 2018-10-13 09:42 | PHYS DOC ---
Past Medical History Past Medical History: Other Additional Past Medical Histor: chronic back pain, Chronic hip pain Past Surgical History: Hip Replacement, Lumbar Laminectomy, Other Additional Past Surgical Histo: back surgery- hardware, inguinal hernia; bilateral hip Additional Information: Pt reports quitting today. Alcohol Use: Occasionally Additional Information: denies today Drug Use: Marijuana Adult General Chief Complaint Chief Complaint: CHEST PAIN HPI HPI Patient is a 63 year old male presented to ER today for evaluation of epigastric abdominal pain ,chest pain, sore throat, productive cough for 2 days. Patient denies any trouble breathing, no nausea or vomiting. Patient is a smoker, denies any history hypertension, no history of diabetic, no history of coronary artery disease. Patient had no history of blood clot disorder. Patient denies any recent operation or travel. Patient said he been out of his Oxycodone for his chronic pain. Review of Systems Review of Systems Constitutional: Denies fever or chills [] Eyes: Denies change in visual acuity, redness, or eye pain [] HENT: POSITIVE FOR NASAL CONGESTION, SORE THROAT Respiratory: POSITIVE FOR cough , NO shortness of breath [] Cardiovascular: Positive for chest pain GI: Denies abdominal pain, nausea, vomiting, bloody stools or diarrhea [] : Denies dysuria or hematuria [] Musculoskeletal: Denies back pain or joint pain [] Integument: Denies rash or skin lesions [] Neurologic: Denies headache, focal weakness or sensory changes [] Endocrine: Denies polyuria or polydipsia [] All other systems were reviewed and found to be within normal limits, except as documented in this note. Current Medications Current Medications Current Medications Medications (Trade) Dose Ordered Sig/Michael Start Time Stop Time Status Last Admin Dose Admin Multi-Ingredient Mouthwash/Gargle (Gi Cocktail) 20 ml 1X ONCE 10/13/18 09:30 10/13/18 09:31 DC 10/13/18 09:36 20 ML Allergies Allergies Allergies Coded Allergies Type Severity Reaction Last Updated Verified No Known Drug Allergies 06/07/18 No Physical Exam Physical Exam Constitutional: Well developed, well nourished, no acute distress, non-toxic appearance. [] HENT: Normocephalic, atraumatic, bilateral external ears normal, oropharynx moist WITH ERYTHEMA, no oral exudates, nose normal. [] Eyes: PERRLA, EOMI, conjunctiva normal, no discharge. [] Neck: Normal range of motion, no tenderness, supple, no stridor. [] Cardiovascular:Heart rate regular rhythm, MILD SYSTOLIC murmur [] Lungs & Thorax: Bilateral breath sounds clear to auscultation [] Abdomen: Bowel sounds normal, soft, no tenderness, no masses, no pulsatile masses. [] Skin: Warm, dry, no erythema, no rash. [] Back: No tenderness, no CVA tenderness. [] Extremities: No tenderness, no cyanosis, no clubbing, ROM intact, no edema. [] Neurologic: Alert and oriented X 3, normal motor function, normal sensory function, no focal deficits noted. [] Psychologic: Affect normal, judgement normal, mood normal. [] Current Patient Data Vital Signs Vital Signs Date Time Temp Pulse Resp B/P (MAP) Pulse Ox O2 Delivery O2 Flow Rate FiO2 10/13/18 09:01 98.0 74 16 152/77 (102) 97 Room Air 98.0 Lab Values Laboratory Tests Test 10/13/18 09:25 10/13/18 09:28 White Blood Count 5.4 x10^3/uL (4.0-11.0) Red Blood Count 4.65 x10^6/uL (4.30-5.70) Hemoglobin 13.8 g/dL (13.0-17.5) Hematocrit 42.2 % (39.0-53.0) Mean Corpuscular Volume 91 fL (79-100) Mean Corpuscular Hemoglobin 30 pg (25-35) Mean Corpuscular Hemoglobin Concent 33 g/dL (31-37) Red Cell Distribution Width 13.8 % (11.5-14.5) Platelet Count 172 x10^3/uL (140-400) Neutrophils (%) (Auto) 73 % (31-73) Lymphocytes (%) (Auto) 13 % (24-48) L Monocytes (%) (Auto) 11 % (0-9) H Eosinophils (%) (Auto) 2 % (0-3) Basophils (%) (Auto) 1 % (0-3) Neutrophils # (Auto) 4.0 x10^3uL (1.8-7.7) Lymphocytes # (Auto) 0.7 x10^3/uL (1.0-4.8) L Monocytes # (Auto) 0.6 x10^3/uL (0.0-1.1) Eosinophils # (Auto) 0.1 x10^3/uL (0.0-0.7) Basophils # (Auto) 0.0 x10^3/uL (0.0-0.2) Prothrombin Time 12.6 SEC (11.7-14.0) Prothrombin Time INR 1.0 (0.8-1.1) PTT 37 SEC (24-38) Sodium Level 142 mmol/L (136-145) Potassium Level 3.6 mmol/L (3.5-5.1) Chloride Level 105 mmol/L (98-107) Carbon Dioxide Level 29 mmol/L (21-32) Anion Gap 8 (6-14) Blood Urea Nitrogen 8 mg/dL (8-26) Creatinine 0.8 mg/dL (0.7-1.3) Estimated GFR (Cockcroft-Gault) 118.9 BUN/Creatinine Ratio 10 (6-20) Glucose Level 105 mg/dL (70-99) H Calcium Level 8.4 mg/dL (8.5-10.1) L Magnesium Level 2.1 mg/dL (1.8-2.4) Total Bilirubin 0.2 mg/dL (0.2-1.0) Aspartate Amino Transferase (AST) 15 U/L (15-37) Alanine Aminotransferase (ALT) 22 U/L (16-63) Alkaline Phosphatase 88 U/L (46-116) Creatine Kinase 146 U/L (39-308) Creatine Kinase MB (Mass) 1.3 ng/mL (0.0-3.6) Creatine Kinase MB Relative Index 0.9 % (0-4) Troponin I Quantitative < 0.017 ng/mL (0.000-0.055) OA-Qdc-W-Type Natriuretic Peptide 25 pg/mL (0-124) Total Protein 7.1 g/dL (6.4-8.2) Albumin 3.3 g/dL (3.4-5.0) L Albumin/Globulin Ratio 0.9 (1.0-1.7) L Lipase 193 U/L (73-393) Group A Streptococcus Rapid Negative (NEGATIVE) Laboratory Tests 10/13/18 09:25 Laboratory Tests 10/13/18 09:25 EKG EKG ekg was read by this physician at 0902, rate of 66 bpm, sinus rhythm, NO STEMI, INCOMPLETE RBBB[] Radiology/Procedures Radiology/Procedures CHEST XRAY: NO ACUTE DISEASE. [] Course & Med Decision Making Course & Med Decision Making Pertinent Labs and Imaging studies reviewed. (See chart for details) [] Dragon Disclaimer Dragon Disclaimer This electronic medical record was generated, in whole or in part, using a voice recognition dictation system. Departure Departure Impression: Primary Impression: Chest pain Disposition: ADMITTED INPATIENT Admitting Physician: Wes Contreras Condition: IMPROVED Referrals: UNKNOWN PCP NAME (PCP) KRISTIAN THOMASON DO Oct 13, 2018 09:42
[2018-10-13 09:46] LABS: PROTHROMBIN TIME PATIENT 12.6 SEC (11.7-14.0)
[2018-10-13 09:50] LABS: CALCIUM 8.4 mg/dL (8.5-10.1); CREATININE 0.8 mg/dL (0.7-1.3); GFR 118.9; POTASSIUM 3.6 mmol/L (3.5-5.1)
[2018-10-13 09:56] LABS: ALBUMIN 3.3 g/dL (3.4-5.0); ALBUMIN/GLOBULIN RATIO 0.9 (1.0-1.7); MAGNESIUM 2.1 mg/dL (1.8-2.4); TOTAL BILIRUBIN 0.2 mg/dL (0.2-1.0); TOTAL PROTEIN 7.1 g/dL (6.4-8.2)
--- NOTE | 2018-10-13 12:50 | HP ---
ADMIT DATE: 10/13/2018 CHIEF COMPLAINT: Chest pain. HISTORY OF PRESENT ILLNESS: The patient is a pleasant 63-year-old male who presented to the ER with chest pain. It is epigastric and he has got abdominal pain as well. He states he has got some pressure in his chest. Denies any history of coronary artery disease, but states he had a recent hip replacement. He is on oxycodone and Valium. He describes his pain as agonizing, worse with moving. I have discussed the case with the ER physician. We are going to admit the patient and consult Cardiology. PAST MEDICAL HISTORY: Hip replacement, chronic pain, probable narcotic dependence, lumbar laminectomy with hardware, inguinal hernia, bilateral hip surgeries, marijuana use. ALLERGIES: None. FAMILY HISTORY: Diabetes. SOCIAL HISTORY: Does not drink, smoke or take drugs. He states he is on disability. MEDICATIONS: Reviewed, please refer to MRAD. He is on Percocet 10, doxycycline, Valium, trazodone, promethazine. REVIEW OF SYSTEMS: GENERAL: No history of weight change, weakness or fevers. SKIN: No bruising, hair changes or rashes. EYES: No blurred, double or loss of vision. NOSE AND THROAT: No history of nosebleeds, hoarseness or sore throat. HEART: He complains of chest pain. LUNGS: Denies cough, hemoptysis, wheezing or shortness of breath. GASTROINTESTINAL: Denies changes in appetite, nausea, vomiting, diarrhea or constipation. GENITOURINARY: No history of frequency, urgency, hesitancy or nocturia. NEUROLOGIC: Denies history of numbness, tingling, tremor or weakness. PSYCHIATRIC: No history of panic, anxiety or depression. ENDOCRINE: No history of heat or cold intolerance, polyuria or polydipsia. EXTREMITIES: Denies muscle weakness, joint pain, pain on walking or stiffness. PHYSICAL EXAMINATION: VITAL SIGNS: Temperature 98, pulse 74, respirations 16, blood pressure 152/70. GENERAL: He is alert, cooperative. HEART: Normal S1, S2. LUNGS: Clear. ABDOMEN: Soft. EXTREMITIES: Trace edema. SKIN: No rash. ENDOCRINE: No thyromegaly. LYMPHATICS: No cervical nodes. HEMATOPOIETIC: No bruising. PSYCHIATRIC: He is stable. LABORATORY DATA: Hematology is normal. Electrolytes were normal. INR is 1. Flu test is negative. Chest x-ray is negative. EKG shows sinus rhythm. ASSESSMENT AND PLAN: Chest pain, rule out coronary artery disease. The patient has been admitted. We will check serial enzymes, serial EKGs, cardiac monitoring. DVT prophylaxis. Home meds. Consult Cardiology. OMER RIOS DO DR: FEI/shahbaz JOB#: [id number] / [id number]
[2018-10-13] MEDS ORDERED: ASPIRIN CHEWABLE 81 MG TABLET. PO ONE (13:00)
[2018-10-13 13:30] VITALS: BP 168/77
[2018-10-13] MEDS ORDERED: hydrALAZINE 20 MG/ML VIAL. IVP PRN (15:30)
--- NOTE | 2018-10-13 15:33 | PDOC2 ---
RICHAR SAHU PRODUCTION LINE MANAGER 10/13/18 1533: CARDIAC CONSULT DATE OF CONSULT Date of Consult DATE: 10/13/18 TIME: 15:30 REASON FOR CONSULT Reason for Consult: Chest pain REFERRING PHYSICIAN Referring Physician: Low SOURCE Source: Chart review, Patient HISTORY OF PRESENT ILLNESS HISTORY OF PRESENT ILLNESS This is a pleasant 63 yo male admitted for complains of sore throat, cough and chest pain. Denies any SOA, palpitations. He has been having this nasal congestion and has been having productive cough with white sputum in the last 2- 3days. Also with sore throat but no reported fever. He has mid chest discomfort that is achy but also this is reproducible with palpation with also epigastric tenderness. No MINA or exertional CP. No recent falls or injury. Denies heartburn and no frequent ibuprofen but does take oxycodone for his chronic pain. No past CAD, VTE, arrhythmias and no recent MVA. PAST MEDICAL HISTORY Psych: Anxiety Musculoskeletal: Osteoarthritis PAST SURGICAL HISTORY Past Surgical History: Hernia Repair, Total hip replacement (bilateral), Other (lumbar laminectomy) FAMILY HISTORY Family History: Hypertension SOCIAL HISTORY Smoke: <1 pack per day ALCOHOL: occassional Drugs: Marijuana CURRENT MEDICATIONS CURRENT MEDICATIONS Current Medications Medications (Trade) Dose Ordered Sig/Michael Route PRN Reason Start Time Stop Time Status Last Admin Dose Admin Multi-Ingredient Mouthwash/Gargle (Gi Cocktail) 20 ml 1X ONCE SWSW 10/13/18 09:30 10/13/18 09:31 DC 10/13/18 09:36 Aspirin (Children'S Aspirin) 324 mg 1X ONCE PO 10/13/18 13:00 10/13/18 13:01 DC 10/13/18 12:58 ALLERGIES ALLERGIES: Coded Allergies: No Known Drug Allergies (Unverified , 06/07/18) ROS Review of System 14 point ROS evaluated with pertinent positives noted per HPI PHYSICAL EXAM General: Alert, Oriented X3, Cooperative, No acute distress HEENT: Atraumatic, Mucous membr. moist/pink Lungs: Clear to auscultation, Normal air movement Heart: Regular rate (SR), Normal S1, Normal S2, Other (2/6 systolic murmur to LLS border) Abdomen: Soft, No tenderness Extremities: No cyanosis, No edema Skin: No breakdown, No significant lesion Neuro: Normal speech, Sensation intact Psych/Mental Status: Mental status NL, Mood NL MUSCULOSKELETAL: Osteoarthritic changes both hands VITALS VITALS Vital Signs Date Time Temp Pulse Resp B/P (MAP) Pulse Ox O2 Delivery O2 Flow Rate FiO2 10/13/18 14:16 Room Air 10/13/18 13:30 98.7 58 18 168/77 (107) 99 98.7 LABS Lab: Laboratory Tests Test 10/13/18 09:25 10/13/18 09:28 White Blood Count 5.4 x10^3/uL (4.0-11.0) Red Blood Count 4.65 x10^6/uL (4.30-5.70) Hemoglobin 13.8 g/dL (13.0-17.5) Hematocrit 42.2 % (39.0-53.0) Mean Corpuscular Volume 91 fL (79-100) Mean Corpuscular Hemoglobin 30 pg (25-35) Mean Corpuscular Hemoglobin Concent 33 g/dL (31-37) Red Cell Distribution Width 13.8 % (11.5-14.5) Platelet Count 172 x10^3/uL (140-400) Neutrophils (%) (Auto) 73 % (31-73) Lymphocytes (%) (Auto) 13 % (24-48) Monocytes (%) (Auto) 11 % (0-9) Eosinophils (%) (Auto) 2 % (0-3) Basophils (%) (Auto) 1 % (0-3) Neutrophils # (Auto) 4.0 x10^3uL (1.8-7.7) Lymphocytes # (Auto) 0.7 x10^3/uL (1.0-4.8) Monocytes # (Auto) 0.6 x10^3/uL (0.0-1.1) Eosinophils # (Auto) 0.1 x10^3/uL (0.0-0.7) Basophils # (Auto) 0.0 x10^3/uL (0.0-0.2) Prothrombin Time 12.6 SEC (11.7-14.0) Prothromb Time International Ratio 1.0 (0.8-1.1) Activated Partial Thromboplast Time 37 SEC (24-38) Sodium Level 142 mmol/L (136-145) Potassium Level 3.6 mmol/L (3.5-5.1) Chloride Level 105 mmol/L (98-107) Carbon Dioxide Level 29 mmol/L (21-32) Anion Gap 8 (6-14) Blood Urea Nitrogen 8 mg/dL (8-26) Creatinine 0.8 mg/dL (0.7-1.3) Estimated GFR (Cockcroft-Gault) 118.9 BUN/Creatinine Ratio 10 (6-20) Glucose Level 105 mg/dL (70-99) Calcium Level 8.4 mg/dL (8.5-10.1) Magnesium Level 2.1 mg/dL (1.8-2.4) Total Bilirubin 0.2 mg/dL (0.2-1.0) Aspartate Amino Transf (AST/SGOT) 15 U/L (15-37) Alanine Aminotransferase (ALT/SGPT) 22 U/L (16-63) Alkaline Phosphatase 88 U/L (46-116) Creatine Kinase 146 U/L (39-308) Creatine Kinase MB (Mass) 1.3 ng/mL (0.0-3.6) Creatine Kinase MB Relative Index 0.9 % (0-4) Troponin I Quantitative < 0.017 ng/mL (0.000-0.055) UF-Gqw-O-Type Natriuretic Peptide 25 pg/mL (0-124) Total Protein 7.1 g/dL (6.4-8.2) Albumin 3.3 g/dL (3.4-5.0) Albumin/Globulin Ratio 0.9 (1.0-1.7) Lipase 193 U/L (73-393) Group A Streptococcus Rapid Negative (NEGATIVE) ASSESSMENT/PLAN ASSESSMENT/PLAN 1. Atypical chest pain trop nml EKG Sr no acute changes. Possibly MSK 2. HTN: labile 3. Tobaccoism 4. URI 5. GERD Recommendations 1. Trend trop. TTE 2. Start on lisinopril. Hydralazine IV PRN. PPI 3. TSH, lipids. 4. Smoking cessation BEBA LOVETT MD 10/13/18 3982: CARDIAC CONSULT ASSESSMENT/PLAN ASSESSMENT/PLAN Pt. seen and examined. Agree with above WRITING MANAGER note. 63 y.o male with non-cardiac chest pain. Normal trops, echo and EKG Supportive care. No further testing needed. RICHAR SAHU PRODUCTION LINE MANAGER Oct 13, 2018 15:33 BEBA LOVETT MD Oct 13, 2018 17:52
--- NOTE | 2018-10-13 16:53 | CARD ---
MR#: [id number] Date of Study: 10/13/2018 Ordering Physician: RICHAR SAHU, Referring Physician: OMER RIOS Tech: Tammi Payne NNEKA APPROVED REPORT EXAM: Two-dimensional and M-mode echocardiogram with Doppler and color Doppler. Other Information Quality : GoodHR: 60bpm Rhythm : NSR INDICATION Chest Pain 2D DIMENSIONS RVDd3.0 (2.9-3.5cm)Left Atrium(2D)3.5 (1.6-4.0cm) IVSd1.2 (0.7-1.1cm)Aortic Root(2D)3.4 (2.0-3.7cm) LVDd5.0 (3.9-5.9cm)LVOT Diameter2.0 (1.8-2.4cm) PWd1.2 (0.7-1.1cm)IVSs2.1 (0.8-1.2cm) LVDs2.6 (2.5-4.0cm)FS (%) 47.7 % PWs1.8 (0.8-1.2cm)SV92.4 ml M-Mode DIMENSIONS Left Atrium(MM)3.48 (2.5-4.0cm)Aortic Root3.77 (2.2-3.7cm) Aortic Valve AoV Peak Bigg.179.4cm/sAoV VTI33.1cm AO Peak GR.12.9mmHgLVOT Peak Bigg.110.0cm/s LVOT VTI 26.32cmAO Mean GR.6mmHg ANNAMARIA (VMAX)2.97td1ZFD (VTI)2.56cm2 AI P 1/2 [id number] Mitral Valve MV E Hdnbkaho947.8cm/sMV DECEL [id number] MV A Eqvcdlit534.6cm/sMV VNE25ov E/A Ratio1.0MVA (PHT)5.38cm2 TDI E/Lateral E'11.1E/Medial E'10.9 Pulmonary Valve PV Peak Kuygxjpi29.4cm/sPV Peak Grad.2mmHg LEFT VENTRICLE The left ventricle is normal size. There is mild concentric left ventricular hypertrophy. The left ve ntricular systolic function is normal and the ejection fraction is within normal range. The Ejection Fraction is 55-60%. There is normal LV segmental wall motion. Transmitral Doppler flow pattern is Gra de I-abnormal relaxation pattern. RIGHT VENTRICLE The right ventricle is normal size. There is normal right ventricular wall thickness. The right ventr icular systolic function is normal. ATRIA The left atrium size is normal. The right atrium size is normal. The interatrial septum is intact wit h no evidence for an atrial septal defect or patent foramen ovale as noted on 2-D or Doppler imaging. AORTIC VALVE The aortic valve is thickened but opens well. The aortic valve is trileaflet. Doppler and Color Flow revealed mild aortic regurgitation. There is no significant aortic valvular stenosis. MITRAL VALVE The mitral valve is normal in structure and function. There is no evidence of mitral valve prolapse. There is no mitral valve stenosis. Doppler and Color Flow revealed no mitral valve regurgitation note d. TRICUSPID VALVE The tricuspid valve is normal in structure and function. Doppler and Color Flow revealed no tricuspid valve regurgitation noted. There is no tricuspid valve prolapse or vegetation. There is no tricuspid valve stenosis. PULMONIC VALVE The pulmonic valve is not well visualized. GREAT VESSELS The aortic root is mildly enlarged. The ascending aorta is normal in size. The IVC is normal in size and collapses >50% with inspiration. PERICARDIAL EFFUSION There is no evidence of significant pericardial effusion. Critical Notification Critical Value: No <Conclusion> The left ventricle is normal size. The left ventricular systolic function is normal and the ejection fraction is within normal range. The Ejection Fraction is 55-60%. There is mild concentric left ventricular hypertrophy. There is no significant aortic valvular stenosis. Doppler and Color Flow revealed mild aortic regurgitation. Doppler and Color Flow revealed no mitral valve regurgitation noted. Doppler and Color Flow revealed no tricuspid valve regurgitation noted. Signed by : Primitivo Ravi MD Electronically Approved : 10/13/2018 16:52:50
[2018-10-13] MEDS: PANTOPRAZOLE 40 MG TABLET.DR. PO SCH (17:08)
[2018-10-13] MEDS: LISINOPRIL 10 MG TABLET PO SCH (17:08)
[2018-10-13] MEDS: diazePAM 5 MG TABLET PO PRN (17:46)
[2018-10-13] MEDS: oxyCODONE/APAP 10/325 1 TAB TABLET PO PRN (17:47)
[2018-10-13] MEDS: guaiFENesin DM 200MG/20MG 10 ML SYRUP PO PRN (19:42)
[2018-10-13 19:50] VITALS: BP 155/72
[2018-10-13] MEDS ORDERED: traZODone 100 MG TABLET. PO SCH (21:00)
[2018-10-13 23:00] VITALS: BP 136/63
[2018-10-13] MEDS: PROMETHAZINE 6.25 MG/5 ML SYRUP. PEG PRN (23:59)
[2018-10-14] MEDS: diazePAM 5 MG TABLET PO PRN (01:10)
[2018-10-14] MEDS: oxyCODONE/APAP 10/325 1 TAB TABLET PO PRN ×2 (01:10→11:12)
[2018-10-14 03:45] VITALS: BP 136/62
[2018-10-14] MEDS: guaiFENesin DM 200MG/20MG 10 ML SYRUP PO PRN (05:01)
[2018-10-14 07:00] VITALS: BP 143/72
[2018-10-14] MEDS: LISINOPRIL 10 MG TABLET PO SCH (08:53)
[2018-10-14] MEDS: PANTOPRAZOLE 40 MG TABLET.DR. PO SCH (08:54)
[2018-10-14] MEDS: PROMETHAZINE 6.25 MG/5 ML SYRUP. PEG PRN (08:54)
[2018-10-14 10:53] VITALS: BP 157/74
--- NOTE | 2018-10-14 11:54 | PDOC ---
PROGRESS NOTES History of Present Illness History of Present Illness ASSESSMENT AND PLAN: Chest pain, non-cardiac chest pain. Normal trops, echo and EKG admitted. serial enzymes, serial EKGs, cardiac monitoring. DVT prophylaxis. Home meds. Cardiology.OK WITH D/C TODAY, SEE PCP CHRISS Vitals Vitals Vital Signs Date Time Temp Pulse Resp B/P (MAP) Pulse Ox O2 Delivery O2 Flow Rate FiO2 10/14/18 10:53 98.6 78 18 157/74 (101) 98 Room Air 98.6 10/14/18 08:00 2.0 Physical Exam Physical Exam Lungs & Thorax: Bilateral breath sounds clear to auscultation [] Abdomen: Bowel sounds normal, soft, no tenderness, no masses, no pulsatile masses. [] Skin: Warm, dry, no erythema, no rash. [] Back: No tenderness, no CVA tenderness. [] Extremities: No tenderness, no cyanosis, no clubbing, ROM intact, no edema. [] Neurologic: Alert and oriented X 3, normal motor function, normal sensory function, no focal deficits noted. [] Psychologic: Affect normal, judgement normal, mood normal. 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1955 Requested By: KRISTIAN THOMASON Order Number: [id number] Reading MD: Beba Barber MD Measurements Intervals [place] Rate: 66 P: 34 W[place]: 172 QRS: 92 QRSD: 100 T: 28 QT: 360 QTc: 379 Interpretive Statements SINUS RHYTHM INCOMPLETE RIGHT BUNDLE BRANCH BLOCK Electronically Signed On 10-13-2018 17:52:11 CDT by Beba Barber MD DICTATED and SIGNED BY: BEBA BARBER MD DATE: 10/13/18 0901 Laboratory Tests Test 10/14/18 03:05 Troponin I Quantitative < 0.017 ng/mL (0.000-0.055) Triglycerides Level 65 mg/dL (0-150) Cholesterol Level 156 mg/dL (0-200) LDL Cholesterol, Calculated 104 mg/dL (0-100) VLDL Cholesterol, Calculated 13 mg/dL (0-40) Non-HDL Cholesterol Calculated 117 mg/dL (0-129) HDL Cholesterol 39 mg/dL (40-60) Cholesterol/HDL Ratio 4.0 Assessment and Plan Assessmemt and Plan Problems Medical Problems: (1) Chest pain Status: Acute Past Medical History Past Medical History: Other Additional Past Medical Histor: chronic back pain Past Surgical History: Other Additional Past Surgical Histo: back surgery- hardware, inguinal hernia Alcohol Use: Rarely Drug Use: None Comment Review of Relevant I have reviewed the following items jose g (where applicable) has been applied. Labs Laboratory Tests Test 10/13/18 09:25 10/13/18 09:28 10/14/18 03:05 White Blood Count 5.4 x10^3/uL (4.0-11.0) Red Blood Count 4.65 x10^6/uL (4.30-5.70) Hemoglobin 13.8 g/dL (13.0-17.5) Hematocrit 42.2 % (39.0-53.0) Mean Corpuscular Volume 91 fL (79-100) Mean Corpuscular Hemoglobin 30 pg (25-35) Mean Corpuscular Hemoglobin Concent 33 g/dL (31-37) Red Cell Distribution Width 13.8 % (11.5-14.5) Platelet Count 172 x10^3/uL (140-400) Neutrophils (%) (Auto) 73 % (31-73) Lymphocytes (%) (Auto) 13 % (24-48) Monocytes (%) (Auto) 11 % (0-9) Eosinophils (%) (Auto) 2 % (0-3) Basophils (%) (Auto) 1 % (0-3) Neutrophils # (Auto) 4.0 x10^3uL (1.8-7.7) Lymphocytes # (Auto) 0.7 x10^3/uL (1.0-4.8) Monocytes # (Auto) 0.6 x10^3/uL (0.0-1.1) Eosinophils # (Auto) 0.1 x10^3/uL (0.0-0.7) Basophils # (Auto) 0.0 x10^3/uL (0.0-0.2) Prothrombin Time 12.6 SEC (11.7-14.0) Prothromb Time International Ratio 1.0 (0.8-1.1) Activated Partial Thromboplast Time 37 SEC (24-38) Sodium Level 142 mmol/L (136-145) Potassium Level 3.6 mmol/L (3.5-5.1) Chloride Level 105 mmol/L (98-107) Carbon Dioxide Level 29 mmol/L (21-32) Anion Gap 8 (6-14) Blood Urea Nitrogen 8 mg/dL (8-26) Creatinine 0.8 mg/dL (0.7-1.3) Estimated GFR (Cockcroft-Gault) 118.9 BUN/Creatinine Ratio 10 (6-20) Glucose Level 105 mg/dL (70-99) Calcium Level 8.4 mg/dL (8.5-10.1) Magnesium Level 2.1 mg/dL (1.8-2.4) Total Bilirubin 0.2 mg/dL (0.2-1.0) Aspartate Amino Transf (AST/SGOT) 15 U/L (15-37) Alanine Aminotransferase (ALT/SGPT) 22 U/L (16-63) Alkaline Phosphatase 88 U/L (46-116) Creatine Kinase 146 U/L (39-308) Creatine Kinase MB (Mass) 1.3 ng/mL (0.0-3.6) Creatine Kinase MB Relative Index 0.9 % (0-4) Troponin I Quantitative < 0.017 ng/mL (0.000-0.055) < 0.017 ng/mL (0.000-0.055) HO-Kmo-L-Type Natriuretic Peptide 25 pg/mL (0-124) Total Protein 7.1 g/dL (6.4-8.2) Albumin 3.3 g/dL (3.4-5.0) Albumin/Globulin Ratio 0.9 (1.0-1.7) Lipase 193 U/L (73-393) Thyroid Stimulating Hormone (TSH) 1.870 uIU/mL (0.358-3.74) Group A Streptococcus Rapid Negative (NEGATIVE) Triglycerides Level 65 mg/dL (0-150) Cholesterol Level 156 mg/dL (0-200) LDL Cholesterol, Calculated 104 mg/dL (0-100) VLDL Cholesterol, Calculated 13 mg/dL (0-40) Non-HDL Cholesterol Calculated 117 mg/dL (0-129) HDL Cholesterol 39 mg/dL (40-60) Cholesterol/HDL Ratio 4.0 Laboratory Tests Test 10/14/18 03:05 Troponin I Quantitative < 0.017 ng/mL (0.000-0.055) Triglycerides Level 65 mg/dL (0-150) Cholesterol Level 156 mg/dL (0-200) LDL Cholesterol, Calculated 104 mg/dL (0-100) VLDL Cholesterol, Calculated 13 mg/dL (0-40) Non-HDL Cholesterol Calculated 117 mg/dL (0-129) HDL Cholesterol 39 mg/dL (40-60) Cholesterol/HDL Ratio 4.0 Medications Current Medications Multi-Ingredient Mouthwash/Gargle (Gi Cocktail) 20 ml 1X ONCE SWSW Last administered on 10/13/18at 09:36; Start 10/13/18 at 09:30; Stop 10/13/18 at 09:31 ; Status DC Aspirin (Children'S Aspirin) 324 mg 1X ONCE PO Last administered on 10/13/18at 12:58; Start 10/13/18 at 13:00; Stop 10/13/18 at 13:01; Status DC Hydralazine HCl (Apresoline Inj) 10 mg PRN Q6HRS PRN IVP ELEVATED BP, SEE COMMENTS; Start 10/13/18 at 15:30 Lisinopril (Prinivil) 10 mg DAILY PO Last administered on 10/14/18at 08:53; Start 10/13/18 at 17:00 Pantoprazole Sodium (Protonix) 40 mg DAILYAC PO Last administered on 10/14/18at 08:54; Start 10/13/18 at 16:30 Oxycodone/ Acetaminophen (Percocet 10/325) 1 tab PRN Q6HRS PRN PO PAIN Last administered on 10/14/18at 11:12; Start 10/13/18 at 17:15 Trazodone HCl (Desyrel) 100 mg QHS PO Last administered on 10/13/18at 22:10; Start 10/13/18 at 21:00 Guaifenesin (Robitussin Dm) 10 ml PRN Q6HRS PRN PO COUGH Last administered on at 05:01; Start 10/13/18 at 17:30 Diazepam (Valium) 10 mg PRN BID PRN PO ANXIETY Last administered on 10/14/18at 01:10; Start 10/13/18 at 17:30 Promethazine HCl (Phenergan Syrup) 6.25 mg PRN Q6HRS PRN PEG cough Last administered on 10/14/18at 08:54; Start 10/13/18 at 17:30 Active Scripts Active Promethazine-Dm Syrup (D-Methorphan Hb/Prometh Hcl) 118 Ml Syrup 5 Ml PO PRN Q4HRS Reported Diazepam 10 Mg Tablet 10 Mg PO BID PRN Trazodone Hcl 100 Mg Tablet 100 Mg PO HS Vitals/I & O Vital Sign - Last 24 Hours 10/13/18 10/13/18 10/13/18 10/13/18 12:05 12:35 13:30 14:16 Temp 98.7 98.7 Pulse 65 65 58 Resp 17 18 18 B/P (MAP) 151/67 (95) 141/65 (90) 168/77 (107) Pulse Ox 98 99 99 O2 Delivery Room Air Room Air Room Air Room Air 10/13/18 10/13/18 10/13/18 10/13/18 17:08 17:47 18:47 19:35 Pulse 58 Resp 20 B/P (MAP) 168/77 O2 Delivery Room Air Room Air O2 Flow Rate 2.0 10/13/18 10/13/18 10/14/18 10/14/18 19:50 23:00 01:10 02:10 Temp 98.4 97.9 98.4 97.9 Pulse 65 62 Resp 18 17 B/P (MAP) 155/72 (99) 136/63 (87) Pulse Ox 97 96 O2 Delivery Room Air Room Air Room Air Room Air 10/14/18 10/14/18 10/14/18 10/14/18 03:45 07:00 08:00 08:53 Temp 98.3 98.6 98.3 98.6 Pulse 69 78 78 Resp 18 18 B/P (MAP) 136/62 (86) 143/72 (95) 143/72 Pulse Ox 96 98 O2 Delivery Room Air Room Air Room Air O2 Flow Rate 2.0 10/14/18 10:53 Temp 98.6 98.6 Pulse 78 Resp 18 B/P (MAP) 157/74 (101) Pulse Ox 98 O2 Delivery Room Air Intake and Output 10/13/18 10/13/18 10/14/18 14:59 22:59 06:59 Intake Total 280 ml 400 ml Balance 280 ml 400 ml EBONI MCWILLIAMS MD Oct 14, 2018 11:54
--- NOTE | 2018-10-14 12:49 | NUR ---
SS following up with discharge planning. SS reviewed pt chart. Pt is from home with spouse and is currently on room air. No discharge needs noted at this time. SS will continue to follow for pending discharge needs.
[2018-10-14] MEDS ORDERED: PROMETHAZINE 6.25 MG/5 ML SYRUP. PO PRN (13:17)
--- NOTE | 2018-10-14 14:57 | PDOC3 ---
Discharge Summary Date of Admission: Oct 13, 2018 Date of Discharge: Oct 14, 2018 Follow-Up: 3-5 days Admitting Diagnosis comment: DISCHARGE DX Chest pain, non-cardiac chest pain. Normal trops, echo and EKG admitted. serial enzymes, serial EKGs, cardiac monitoring. CVC DVT prophylaxis. Home meds. Cardiology.OK WITH D/C TODAY, SEE PCP CHRISS Vitals Vitals Vital Signs Date Time Temp Pulse Resp B/P (MAP) Pulse Ox O2 Delivery O2 Flow Rate FiO2 10/14/18 10:53 98.6 78 18 157/74 (101) 98 Room Air 98.6 10/14/18 08:00 2.0 Physical Exam Physical Exam Lungs & Thorax: Bilateral breath sounds clear to auscultation [] Abdomen: Bowel sounds normal, soft, no tenderness, no masses, no pulsatile masses. [] Skin: Warm, dry, no erythema, no rash. [] Back: No tenderness, no CVA tenderness. [] Extremities: No tenderness, no cyanosis, no clubbing, ROM intact, no edema. [] Neurologic: Alert and oriented X 3, normal motor function, normal sensory function, no focal deficits noted. [] Psychologic: Affect normal, judgement normal, mood normal. 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1955 Requested By: KRISTIAN THOMASON Order Number: [id number] Reading MD: Beba Barber MD Measurements Intervals [place] Rate: 66 P: 34 [place]: 172 QRS: 92 QRSD: 100 T: 28 QT: 360 QTc: 379 Interpretive Statements SINUS RHYTHM INCOMPLETE RIGHT BUNDLE BRANCH BLOCK Electronically Signed On 10-13-2018 17:52:11 CDT by Beba Barber MD DICTATED and SIGNED BY: BEBA BARBER MD DATE: 10/13/18900 Laboratory Tests Test 10/14/18 03:05 Troponin I Quantitative < 0.017 ng/mL (0.000-0.055) Triglycerides Level 65 mg/dL (0-150) Cholesterol Level 156 mg/dL (0-200) LDL Cholesterol, Calculated 104 mg/dL (0-100) VLDL Cholesterol, Calculated 13 mg/dL (0-40) Non-HDL Cholesterol Calculated 117 mg/dL (0-129) HDL Cholesterol 39 mg/dL (40-60) Cholesterol/HDL Ratio 4.0 Assessment and Plan Assessmemt and Plan Problems Medical Problems: (1) Chest pain Status: Acute Past Medical History Past Medical History: Other Additional Past Medical Histor: chronic back pain Past Surgical History: Other Additional Past Surgical Histo: back surgery- hardware, inguinal hernia Alcohol Use: Rarely FINAL DIAGNOSIS Problems Medical Problems: (1) Chest pain Status: Acute Brief Hospital Course Mr. Roque is a 63 old [sex] who presented with [CHEST PAIN ] CONDITION AT DISCHARGE: Improved Discharge Medications Current Medications Multi-Ingredient Mouthwash/Gargle (Gi Cocktail) 20 ml 1X ONCE SWSW Last administered on 10/13/18at 09:36; Start 10/13/18 at 09:30; Stop 10/13/18 at 09:31 ; Status DC Aspirin (Children'S Aspirin) 324 mg 1X ONCE PO Last administered on 10/13/18at 12:58; Start 10/13/18 at 13:00; Stop 10/13/18 at 13:01; Status DC Hydralazine HCl (Apresoline Inj) 10 mg PRN Q6HRS PRN IVP ELEVATED BP, SEE COMMENTS; Start 10/13/18 at 15:30 Lisinopril (Prinivil) 10 mg DAILY PO Last administered on 10/14/18at 08:53; Start 10/13/18 at 17:00 Pantoprazole Sodium (Protonix) 40 mg DAILYAC PO Last administered on 10/14/18at 08:54; Start 10/13/18 at 16:30 Oxycodone/ Acetaminophen (Percocet 10/325) 1 tab PRN Q6HRS PRN PO PAIN Last administered on 10/14/18at 11:12; Start 10/13/18 at 17:15 Trazodone HCl (Desyrel) 100 mg QHS PO Last administered on 10/13/18at 22:10; Start 10/13/18 at 21:00 Guaifenesin (Robitussin Dm) 10 ml PRN Q6HRS PRN PO COUGH Last administered on at 05:01; Start 10/13/18 at 17:30 Diazepam (Valium) 10 mg PRN BID PRN PO ANXIETY Last administered on 10/14/18at 01:10; Start 10/13/18 at 17:30 Promethazine HCl (Phenergan Syrup) 6.25 mg PRN Q6HRS PRN PEG cough Last administered on 10/14/18at 08:54; Start 10/13/18 at 17:30; Stop 10/14/18 at 13:17 ; Status DC Promethazine HCl (Phenergan Syrup) 6.25 mg PRN Q6HRS PRN PO cough; Start at 13:17 Active Scripts Active Promethazine-Dm Syrup (D-Methorphan Hb/Prometh Hcl) 118 Ml Syrup 5 Ml PO PRN Q4HRS Reported Diazepam 10 Mg Tablet 10 Mg PO BID PRN Trazodone Hcl 100 Mg Tablet 100 Mg PO HS Vital Signs Vital Signs Date Time Temp Pulse Resp B/P (MAP) Pulse Ox O2 Delivery O2 Flow Rate FiO2 10/14/18 12:50 Room Air 10/14/18 10:53 98.6 78 18 157/74 (101) 98 98.6 10/14/18 08:00 2.0 Labs Laboratory Tests Test 10/13/18 09:25 10/13/18 09:28 10/14/18 03:05 White Blood Count 5.4 x10^3/uL (4.0-11.0) Red Blood Count 4.65 x10^6/uL (4.30-5.70) Hemoglobin 13.8 g/dL (13.0-17.5) Hematocrit 42.2 % (39.0-53.0) Mean Corpuscular Volume 91 fL (79-100) Mean Corpuscular Hemoglobin 30 pg (25-35) Mean Corpuscular Hemoglobin Concent 33 g/dL (31-37) Red Cell Distribution Width 13.8 % (11.5-14.5) Platelet Count 172 x10^3/uL (140-400) Neutrophils (%) (Auto) 73 % (31-73) Lymphocytes (%) (Auto) 13 % (24-48) Monocytes (%) (Auto) 11 % (0-9) Eosinophils (%) (Auto) 2 % (0-3) Basophils (%) (Auto) 1 % (0-3) Neutrophils # (Auto) 4.0 x10^3uL (1.8-7.7) Lymphocytes # (Auto) 0.7 x10^3/uL (1.0-4.8) Monocytes # (Auto) 0.6 x10^3/uL (0.0-1.1) Eosinophils # (Auto) 0.1 x10^3/uL (0.0-0.7) Basophils # (Auto) 0.0 x10^3/uL (0.0-0.2) Prothrombin Time 12.6 SEC (11.7-14.0) Prothromb Time International Ratio 1.0 (0.8-1.1) Activated Partial Thromboplast Time 37 SEC (24-38) Sodium Level 142 mmol/L (136-145) Potassium Level 3.6 mmol/L (3.5-5.1) Chloride Level 105 mmol/L (98-107) Carbon Dioxide Level 29 mmol/L (21-32) Anion Gap 8 (6-14) Blood Urea Nitrogen 8 mg/dL (8-26) Creatinine 0.8 mg/dL (0.7-1.3) Estimated GFR (Cockcroft-Gault) 118.9 BUN/Creatinine Ratio 10 (6-20) Glucose Level 105 mg/dL (70-99) Calcium Level 8.4 mg/dL (8.5-10.1) Magnesium Level 2.1 mg/dL (1.8-2.4) Total Bilirubin 0.2 mg/dL (0.2-1.0) Aspartate Amino Transf (AST/SGOT) 15 U/L (15-37) Alanine Aminotransferase (ALT/SGPT) 22 U/L (16-63) Alkaline Phosphatase 88 U/L (46-116) Creatine Kinase 146 U/L (39-308) Creatine Kinase MB (Mass) 1.3 ng/mL (0.0-3.6) Creatine Kinase MB Relative Index 0.9 % (0-4) Troponin I Quantitative < 0.017 ng/mL (0.000-0.055) < 0.017 ng/mL (0.000-0.055) US-Jnl-F-Type Natriuretic Peptide 25 pg/mL (0-124) Total Protein 7.1 g/dL (6.4-8.2) Albumin 3.3 g/dL (3.4-5.0) Albumin/Globulin Ratio 0.9 (1.0-1.7) Lipase 193 U/L (73-393) Thyroid Stimulating Hormone (TSH) 1.870 uIU/mL (0.358-3.74) Group A Streptococcus Rapid Negative (NEGATIVE) Triglycerides Level 65 mg/dL (0-150) Cholesterol Level 156 mg/dL (0-200) LDL Cholesterol, Calculated 104 mg/dL (0-100) VLDL Cholesterol, Calculated 13 mg/dL (0-40) Non-HDL Cholesterol Calculated 117 mg/dL (0-129) HDL Cholesterol 39 mg/dL (40-60) Cholesterol/HDL Ratio 4.0 Laboratory Tests Test 10/14/18 03:05 Troponin I Quantitative < 0.017 ng/mL (0.000-0.055) Triglycerides Level 65 mg/dL (0-150) Cholesterol Level 156 mg/dL (0-200) LDL Cholesterol, Calculated 104 mg/dL (0-100) VLDL Cholesterol, Calculated 13 mg/dL (0-40) Non-HDL Cholesterol Calculated 117 mg/dL (0-129) HDL Cholesterol 39 mg/dL (40-60) Cholesterol/HDL Ratio 4.0 Allergies Allergies Coded Allergies Type Severity Reaction Last Updated Verified No Known Drug Allergies 06/07/18 No Disposition/Orders: D/C to Home Patient Instructions D/C PLANNING 35 MIN EBONI CMWILLIAMS MD Oct 14, 2018 14:57
[2018-10-14] MEDS ORDERED: Pantoprazole PO (14:59)
[2018-10-14] MEDS ORDERED: LISI10TA2 PO (14:59)
--- NOTE | 2018-10-14 15:00 | DISCH ---
DISCHARGE INSTRUCTIONS Condition on Discharge Condition on Discharge: Stable Activity After Discharge Activity Instructions for Disc: Activity as tolerated Bathing Instructions: Shower-keep dressing dry Lifting Instructions after Dis: No heavy lifting, No pulling or pushing, Do not lift >10 pounds Exercise Instruction after Dis: Exercise per therapy, Progress as tolerated Driving Instructions after Dis: Do not drive Weight Bearing Status after Di: As tolerated Diet after Discharge Diet after Discharge: Cardiac, Regular Diet Texture: Regular Wound Incision Care Wound/Incision Care: Ice to area for comfort Checks after Discharge Checks after discharge: Check your Temp as needed Contacting the DR. after DC Call your doctor for: Concerns you may have Treatment/Equipment after DC Adaptive Equipment Issued: None EBONI MCWILLIAMS MD Oct 14, 2018 15:00
[2018-10-14 15:05] VITALS: BP 155/70
--- NOTE | 2018-10-14 16:06 | NUR ---
Discharge Note: ROMAN ROQUE [address] [place] [address] Discharge instructions and discharge home medications reviewed with Patient and a copy given. All questions have been answered and understanding verbalized. The following instructions and handouts were given: CP nonspecific Discontinued IV line Patient discharged to home with self care via wheelchair
== END 2018-10-14 16:08 | disposition home or self-care (01) ==
LOC: ER 08:53 → 2 SOUTH 12:20
PROVIDERS: ADMIT Internal Medicine; ATTEND Internal Medicine
DX: R07.89 Other chest pain (principal); I25.10 Atherosclerotic heart disease of native coronary artery without angina pectoris; M54.9 Dorsalgia, unspecified; F11.20 Opioid dependence, uncomplicated; G89.29 Other chronic pain; M25.559 Pain in unspecified hip; K40.20 Bilateral inguinal hernia, without obstruction or gangrene, not specified as recurrent; F12.90 Cannabis use, unspecified, uncomplicated; Z96.643 Presence of artificial hip joint, bilateral; Z83.3 Family history of diabetes mellitus
CPT/HCPCS: 36415; 71045; 80053; 80061; 82550; 82553; 83690; 83735; 83880; 84443; 84484; 85025; 85610; 85730; 87070; 87880; 93005; 93306; 99284; G0378; G0379

== ENCOUNTER → 2019-10-13 | Day surgery (SDC) | payer MEDICARE, OTHER ==
[~2019-10-13] MED LIST changes: -D-ME118S2 PO; +IV RINGERS,LACTATED 1000ML 1,000 ML IV SCH; +LIDOCAINE 2% PF 5 ML VIAL. ONE; +LISI10TA2 PO; +OXYC5TAB4 PO; +PROM118S9 PO; +PROPOFOL 40 ML IV ONE; +Pantoprazole PO; +TRAZ-123 PO; -TRAZ-86 PO
[2019-10-13] MEDS: IV RINGERS,LACTATED 1000ML 1,000 ML IV SCH (12:19)
[2019-10-13 13:37] VITALS: BP 145/76
--- NOTE | 2019-10-14 17:06 | PATHOLOGY ---
[facility] Accession Number: [id number] . 01 Material submitted: . PART A: colon - SIGMOID POLYPECTOMY. Modifiers: sigmoid PART B: colon - TRANSVERSE COLON POLYP. Modifiers: transverse . 01 Clinical history: . Anemia; history of polyps; weight loss . 02 Diagnosis: A. Sigmoid colon polypectomy: - Tubular adenoma. . B. Colon biopsy, transverse colon polyp: - Tubular adenoma. . (JPM:mm; 10/14/2019) [facility] 10/14/2019 1346 Local . 02 Comment: There is no high grade dysplasia or evidence of malignancy. . (JPM:mml; 10/14/2019) . 02 Electronically signed: . Carlos Navarro MD, Pathologist NPI- [id number] . 01 Gross description: . A. The specimen is received in formalin, labeled "Carlos Coffey, sigmoid polypectomy". Received is a segment of red-brown polypoid tissue measuring 0.8 x 0.8 x 0.5 cm in greatest dimensions. The surgical margin is inked. The specimen is bisected and entirely submitted in cassette A1. . B. The specimen is received in formalin, labeled "Carlos Alexx, transverse colon polyp". Received is a segment of pale koroma soft tissue measuring 0.6 cm in maximum dimensions. The specimen is submitted entirely in cassette B1. ([facility]; 10/13/2019) QAC/QAC 10/13/2019 1936 Local . 02 Pathologist provided ICD-10: D12.5, D12.3 . 02 CPT . 038200, 192560 Specimen Comment: A courtesy copy of this report has been sent to [phone] Specimen Comment: Report sent to Performed at: 01 [facility] [address], [place], [place] [id number] MD Idris Payton MD Phone: [phone] Performed at: 02 [facility] [id number] [place], [place] [id number] MD Carlos Navarro MD Phone: [phone]
== END | disposition home or self-care (01) ==
LOC: ENDOS 11:20
PROVIDERS: ATTEND Internal Medicine Gastroenterology
DX: D50.9 Iron deficiency anemia, unspecified (principal); D12.5 Benign neoplasm of sigmoid colon; D12.3 Benign neoplasm of transverse colon; K64.0 First degree hemorrhoids; K63.89 Other specified diseases of intestine; K57.30 Diverticulosis of large intestine without perforation or abscess without bleeding; K29.50 Unspecified chronic gastritis without bleeding; K44.9 Diaphragmatic hernia without obstruction or gangrene; G47.33 Obstructive sleep apnea (adult) (pediatric); Z86.010 Personal history of colon polyps; Z80.0 Family history of malignant neoplasm of digestive organs; Z72.0 Tobacco use; Z79.899 Other long term (current) drug therapy; Z98.890 Other specified postprocedural states
CPT/HCPCS: 43235; 45385; 88305; J2704; J3490; 45384

== ENCOUNTER 2020-05-04 15:11 | Emergency (ER) | payer OTHER ==
[~2020-05-04] VITALS: Ht 170.2 cm; Wt 75.0 kg
[~2020-05-04 15:11] MED LIST changes: -IV RINGERS,LACTATED 1000ML 1,000 ML IV SCH; -LIDOCAINE 2% PF 5 ML VIAL. ONE; +PROM118S10 PO; -PROM118S9 PO; -PROPOFOL 40 ML IV ONE
--- NOTE | 2020-05-04 15:55 | PHYS DOC ---
Past Medical History Past Medical History: Other Additional Past Medical Histor: CHRONIC PAIN, RLS Past Surgical History: Hip Replacement Additional Past Surgical Histo: BACK, HERNIA Smoking Status: Current Every Day Smoker Alcohol Use: Rarely Drug Use: None General Adult EDM: Chief Complaint: CHEST PAIN HPI: HPI: Patient history obtained from the patient. 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 He states he is had constant chest pain over the past week. He states pain is made worse with coughing. He states pain is an aching pain. Denies any radiation of his symptoms. Notes productive sputum. Denies objective fevers. States he has been exposed to coronavirus. Denies syncope. Denies any history of coronary artery disease. States he used to smoke cigarettes but quit years ago. Denies any daily alcohol use. Notes occasional marijuana usage. Denies any exertional component to his symptoms. Has tried NyQuil, Tylenol, and cough medicine with minimal relief. States it is difficult to sleep at night due to his cough. Does think that he has had a stress test in the past that he thinks was normal. Does follow with primary care physician but states that his doctor was out of the office this week. Denies associated diaphoresis. Denies nausea or vomiting. No other complaints. Review of Systems: Review of Systems: Constitutional: Denies fever or chills. [] Eyes: Denies change in visual acuity. [] HENT: Denies nasal congestion or sore throat. [] Respiratory: Positive for cough Cardiovascular: Positive for chest pain GI: Denies abdominal pain, nausea, vomiting, bloody stools or diarrhea. [] : Denies dysuria. [] Musculoskeletal: Denies back pain or joint pain. [] Integument: Denies rash. [] Neurologic: Denies headache, focal weakness or sensory changes. [] Endocrine: Denies polyuria or polydipsia. [] Lymphatic: Denies swollen glands. [] Psychiatric: Denies depression or anxiety. [] Heart Score: HEART Score for Chest Pain: HEART Score for Chest Pain Response (Comments) Value History Slighlty/Non-Suspicious 0 ECG Normal 0 Age >45 - < 65 1 Risk Factors 1 or 2 Risk Factors 1 Troponin < Normal Limit 0 Total 2 Risk Factors: Risk Factors: DM, Current or recent (<one month) smoker, HTN, HLP, family history of CAD, obesity. Risk Scores: Score 0 - 3: 2.5% MACE over next 6 weeks - Discharge Home Score 4 - 6: 20.3% MACE over next 6 weeks - Admit for Clinical Observation Score 7 - 10: 72.7% MACE over next 6 weeks - Early Invasive Strategies Allergies: Allergies: Allergies Coded Allergies Type Severity Reaction Last Updated Verified No Known Drug Allergies 10/13/19 No Physical Exam: PE: Constitutional: Well developed, well nourished, no acute distress, non-toxic appearance. [] HENT: Normocephalic, atraumatic, bilateral external ears normal, oropharynx moist, no oral exudates, nose normal. [] Eyes: PERRLA, EOMI, conjunctiva normal, no discharge. [] Neck: Normal range of motion, no tenderness, supple, no stridor. [] Cardiovascular:Heart rate regular rhythm, no murmur [] Lungs & Thorax: Bilateral breath sounds clear to auscultation [] Abdomen: soft, no tenderness, no masses, no pulsatile masses. [] Skin: Warm, dry, no erythema, no rash. [] Back: No tenderness, no CVA tenderness. [] Extremities: No tenderness, no cyanosis, no clubbing, ROM intact, no edema. [] Neurologic: Alert and oriented X 3, normal motor function, normal sensory function, no focal deficits noted. [] Psychologic: Affect normal, judgement normal, mood normal. [] Current Patient Data: Labs: Laboratory Tests Test 05/04/20 15:35 White Blood Count 5.6 x10^3/uL Red Blood Count 4.45 x10^6/uL Hemoglobin 14.1 g/dL Hematocrit 41.0 % Mean Corpuscular Volume 92 fL Mean Corpuscular Hemoglobin 32 pg Mean Corpuscular Hemoglobin Concent 34 g/dL Red Cell Distribution Width 13.5 % Platelet Count 248 x10^3/uL Neutrophils (%) (Auto) 68 % Lymphocytes (%) (Auto) 23 % Monocytes (%) (Auto) 5 % Eosinophils (%) (Auto) 3 % Basophils (%) (Auto) 1 % Neutrophils # (Auto) 3.8 x10^3/uL Lymphocytes # (Auto) 1.3 x10^3/uL Monocytes # (Auto) 0.3 x10^3/uL Eosinophils # (Auto) 0.2 x10^3/uL Basophils # (Auto) 0.1 x10^3/uL Sodium Level 142 mmol/L Potassium Level 3.7 mmol/L Chloride Level 106 mmol/L Carbon Dioxide Level 30 mmol/L Anion Gap 6 Blood Urea Nitrogen 10 mg/dL Creatinine 0.9 mg/dL Estimated GFR (Cockcroft-Gault) 103.1 BUN/Creatinine Ratio 11 Glucose Level 101 mg/dL Calcium Level 9.0 mg/dL Total Bilirubin 0.4 mg/dL Aspartate Amino Transf (AST/SGOT) 15 U/L Alanine Aminotransferase (ALT/SGPT) 18 U/L Alkaline Phosphatase 68 U/L Troponin I Quantitative < 0.017 ng/mL Total Protein 7.4 g/dL Albumin 3.5 g/dL Albumin/Globulin Ratio 0.9 Lipase 80 U/L Current Medications Medications (Trade) Dose Ordered Sig/Michael Route PRN Reason Start Time Stop Time Status Last Admin Dose Admin Ketorolac Tromethamine (Toradol 15mg Vial) 15 mg 1X ONCE IVP 05/04/20 16:00 05/04/20 16:01 DC Ondansetron HCl (Zofran) 4 mg 1X ONCE IVP 05/04/20 16:00 05/04/20 16:01 DC Benzonatate (Tessalon Perle) 100 mg 1X ONCE PO 05/04/20 16:00 05/04/20 16:01 DC EKG: EKG: EKG consistent with normal sinus rhythm. Ventricular rate is 60 bpm. [place] normal. Intervals normal. No acute ischemic changes noted. [] Radiology/Procedures: Radiology/Procedures: [facility] [address] [place] [address] IMAGING REPORT Signed PATIENT: ROMAN ROQUE ACCOUNT: [id number] : 1955 LOCATION: ER AGE: 65 SEX: M EXAM STATUS: PRE ER ORD. PHYSICIAN: DAHIANA ANDERSON DO REASON: CP 7 PROCEDURE: CHEST AP ONLY Single view chest dated 05/04/2020. Comparison made to 10/13/2018. CLINICAL INDICATION: Chest pain. FINDINGS: Single upright portable exam performed. Heart and mediastinal contours are stable. Lungs are clear. No consolidation or pleural effusion. Calcified granuloma the left base. IMPRESSION: No acute radiographic normality. Electronically signed by: Braxton Lara MD (05/04/2020 4:23 PM) [facility] [place] DICTATED and SIGNED BY: BRAXTON LARA MD DATE: 05/04/20 1623 [] Course & Med Decision Making: Course & Med Decision Making Pertinent Labs and Imaging studies reviewed. (See chart for details) [] Patient is a 65-year-old male who presents with chief complaint of constant chest pain for the past week associated with cough. Initial vital signs unremarkable. EKG without acute ischemic changes. Troponin negative. Chest x- ray nonacute. COVID swab obtained and pending. Overall I do have low suspicion for ACS. Low risk heart score by my estimation. He states he does have follow-up with his primary care physician in the next 3 days. States his greatest concern is getting cough medicine. I did give him instructions to self quarantine at home until his COVID results return. Overall low suspicion for pulmonary embolism. Strict return precautions were discussed and understood. Stable for discharge home. COVID-19 CRITERIA: The patient was evaluated during the global COVID-19 pandemic, and that diagnosis was suspected/considered upon their initial presentation. Their evaluation, treatment and testing was consistent with current guidelines for patients who present with complaints or symptoms that may be related to COVID-19. Jorge Disclaimer: Jorge Disclaimer: This electronic medical record was generated, in whole or in part, using a voice recognition dictation system. Departure Departure Impression: Primary Impression: Cough Additional Impression: Chest pain Qualified Codes: R07.9 - Chest pain, unspecified Disposition: 01 DC HOME SELF CARE/HOMELESS Condition: STABLE Referrals: Keiry TOUSSAINT MD (PCP) Patient Instructions: Chest Pain (Nonspecific)-Brief Additional Instructions: You have been tested for or diagnosed with COVID-19. It is an infection caused by a new type of coronavirus. COVID-19 will cause cold-like or mild flu symptoms in most. It can cause more severe symptoms like problems breathing in some. There is no treatment for COVID-19. The body will clear the infection over time. Self-care will help to ease discomfort. Steps to Take: Self-Care Rest as needed. Healthy habits may help you feel better. Steps include: Choose healthy foods including fruits and vegetables. Drink water throughout the day. Get plenty of sleep each night. If you smoke, try to quit. It may ease breathing. Avoid alcohol. Keep Others Healthy The virus can spread to others. Droplets are released every time you sneeze or cough. The droplets can get into the mouth, nose, or eyes of people near you and lead to infection. To lower the chances of spreading COVID-19 to others: Stay at home until your doctor has said it is safe to leave. If you tested positive this will mean staying isolated until both of the following are true: At least 7 days have passed since the start of illness. You are free of fever for at least 72 hours without the use of medicine. During this time: - Avoid public areas, events, or transportation. Do not return to work or school until your doctor has said it is safe to do so. - Call ahead if you need to go to a medical center. Let them know you may have COVID-19. It will help them guide you where to go. They may also ask you to wear a facemask when you come to the office. - If you call for emergency medical services, let them know you may have COVID- 19. While at home: - Try to avoid close contact with others. Stay about 6 feet away. - If possible, spend most of your time in a separate room from others. - Use a face mask if you will be in close contact with others such as sharing a room or vehicle. - Have someone wipe down common surfaces in the home. Use household box office manager every day on areas like doorknobs, counters, or sinks. - Cough or sneeze into a tissue. Throw the tissue away right after use. If a tissue is not available, cough or sneeze into your elbow. - Wash your hands often. Wash them after sneezing or coughing. Use soap and water and wash for at least 20 seconds. Alcohol based hand casting cleaner can be used if soap and water is not available. - Do not prepare food for others. Avoid sharing personal items like forks, spoons, or toothbrushes. - Avoid close contact with pets while you are sick. There is no evidence of the virus passing to pets. This is a safety step until more is known about this virus. Isolation can be frustrating. Social interaction can help. Keep in touch with friends and family through phone and tech options. You can still interact with others in your home, just keep a safe distance of about 6 feet. Follow-up: Your doctors office will check in with you to see if there are any changes in your health. You may be asked to keep track of symptoms to share with them. They will also let you know when you are clear to be in public again. Problems to Look Out For: Contact your doctor if your recovery is not going as you expect. Get emergency care if you have problems such as: - Trouble breathing - Nonstop chest pain or pressure - Changes in awareness, confusion, or problems waking - Lips or face have bluish color - Worsening of symptoms If you think you have an emergency, call for emergency medical services right away. As taken from [employer] Benzonatate (TESSALON PERLE) 100 Mg Capsule 100 MG PO TID PRN for COUGH for 4 Days, #12 CAP Prov: DAHIANA ANDERSON DO 05/04/20 Guaifenesin (MUCINEX) 600 Mg Tablet.er 1 TAB PO BID for cough for 5 Days, #10 TAB 0 Refills Prov: DAHIANA ANDERSON DO 05/04/20 DAHIANA ANDERSON DO May 04, 2020 15:54
[2020-05-04 15:59] LABS: BASO # 0.1 x10^3/uL (0.0-0.2); BASO % 1 % (0-3); EOS # 0.2 x10^3/uL (0.0-0.7); EOS % 3 % (0-3); HEMOGLOBIN 14.1 g/dL (13.0-17.5); LYMPH # 1.3 x10^3/uL (1.0-4.8); LYMPH % 23 % (24-48); MEAN CORPUSCULAR HEMOGLOBIN 32 pg (25-35); MEAN CORPUSCULAR HGB CONC 34 g/dL (31-37); MEAN CORPUSCULAR VOLUME 92 fL (79-100); MONO # 0.3 x10^3/uL (0.0-1.1); MONO % 5 % (0-9); NEUT # 3.8 x10^3/uL (1.8-7.7); NEUT % 68 % (31-73); PLATELET COUNT 248 x10^3/uL (140-400); RED BLOOD COUNT 4.45 x10^6/uL (4.30-5.70); RED CELL DISTRIBUTION WIDTH 13.5 % (11.5-14.5); WHITE BLOOD COUNT 5.6 x10^3/uL (4.0-11.0)
[2020-05-04] MEDS ORDERED: BENZONATATE 100 MG CAPSULE. PO ONE (16:00)
[2020-05-04] MEDS ORDERED: KETOROLAC 15 MG/ML VIAL. IVP ONE (16:00)
[2020-05-04] MEDS ORDERED: ONDANSETRON PF 4 MG/2 ML VIAL. IVP ONE (16:00)
[2020-05-04 16:10] LABS: CREATININE 0.9 mg/dL (0.7-1.3); GFR 103.1; POTASSIUM 3.7 mmol/L (3.5-5.1)
[2020-05-04 16:15] LABS: ALBUMIN 3.5 g/dL (3.4-5.0); ALBUMIN/GLOBULIN RATIO 0.9 (1.0-1.7); TOTAL BILIRUBIN 0.4 mg/dL (0.2-1.0); TOTAL PROTEIN 7.4 g/dL (6.4-8.2)
--- NOTE | 2020-05-04 16:26 | RAD ---
Single view chest dated 05/04/2020. Comparison made to 10/13/2018. CLINICAL INDICATION: Chest pain. FINDINGS: Single upright portable exam performed. Heart and mediastinal contours are stable. Lungs are clear. No consolidation or pleural effusion. Calcified granuloma the left base. IMPRESSION: No acute radiographic normality. Electronically signed by: Braxton Lara MD (05/04/2020 4:23 PM) SHAI
[2020-05-04] MEDS ORDERED: GUAI600T47 PO (16:52)
[2020-05-04] MEDS ORDERED: BENZ100C PO (16:52)
[2020-05-04 17:15] VITALS: BP 155/72
--- NOTE | 2020-05-07 10:39 | NUR ---
IP: Informed pt of negative COVID results. Pt verbalized understanding.
== END 2020-05-04 17:30 | disposition home or self-care (01) ==
LOC: ER 15:11
DX: R05 Cough (principal); Z20.828 Contact with and (suspected) exposure to other viral communicable diseases; R07.89 Other chest pain; M54.5 Low back pain; G89.29 Other chronic pain; F17.200 Nicotine dependence, unspecified, uncomplicated; Z98.890 Other specified postprocedural states
CPT/HCPCS: 36415; 71045; 80053; 83690; 84484; 85025; 96374; 96375; 99285; J1885; J2405; U0003

== ENCOUNTER → 2020-08-21 | Outpatient (CLI) | payer OTHER ==
[~2020-08-21] MED LIST changes: +BENZ100C PO; +GUAI600T47 PO; +IOHEXOL 240 MG/ML 50ML VIAL. PO ONE; +IOHEXOL 300 MG/ML 100ML VIAL. IV ONE; +LISI10TA16 PO; -LISI10TA2 PO
--- NOTE | 2020-08-21 17:38 | RAD ---
EXAMINATION: CT PELVIS W CLINICAL HISTORY: Inguinal hernia repair. TECHNIQUE: Routine CT of the pelvis following administration of intravenous contrast. CT Dose Reduction Employed: One or more of the following individualized dose reduction techniques wer e utilized for this examination: 1. Automated exposure control 2. Adjustment of the mA and/or kV ac cording to patient size 3. Use of iterative reconstruction technique. COMPARISON: CT abdomen/pelvis 07/28/2019 FINDINGS: Extensive beam hardening artifact related to bilateral total hip arthroplasties significantly limits evaluation of the pelvic viscera. Similar-appearing postoperative changes related to left inguinal hernia repair. No evidence of recurr ent inguinal hernia. Partially visualized small fat-containing umbilical hernia. Nondiagnostic evaluation of the urinary bladder and prostate secondary to artifact. Partially visualized diverticulosis in the distal descending and proximal sigmoid colon without defin itive evidence of acute diverticulitis, though minimal colonic distention in this region limits evalu ation for wall thickening. Mild rectal stool. No distal abdominal aortic or iliac artery aneurysm. No lymphadenopathy. Partially visualized lower lumbar laminectomies and posterior fusion with pedicle screws and stabiliz ation rods. Unchanged appearance of the S1 left pedicle screw, likely remotely fractured with subsequ ent removal of the screw head. Intact bilateral total hip arthroplasties without definitive evidence of hardware complication on limited evaluation. IMPRESSION: No evidence of acute pelvic abnormality on limited evaluation as described. Essentially unchanged postoperative findings related to left inguinal hernia repair. No recurrent ing uinal hernia. Partially visualized colonic diverticulosis without definitive evidence of acute diverticulitis. Electronically signed by: Noam Shabazz DO (08/21/2020 5:36 PM) [id number]
== END ==
LOC: CT 09:36
PROVIDERS: ATTEND Family Medicine
DX: K57.30 Diverticulosis of large intestine without perforation or abscess without bleeding (principal)
CPT/HCPCS: 72193; Q9966; Q9967

== ENCOUNTER 2020-12-02 07:39 | Emergency (ER) | payer OTHER ==
[~2020-12-02] VITALS: Ht 170.2 cm; Wt 78.6 kg
[~2020-12-02 07:39] MED LIST changes: -IOHEXOL 240 MG/ML 50ML VIAL. PO ONE; -IOHEXOL 300 MG/ML 100ML VIAL. IV ONE
--- NOTE | 2020-12-02 08:40 | RAD ---
Chest AP portable at 0823: Reason for examination: Chest pain and shortness of breath. Covid 19 infection. Comparison is made to previous studies dated 05/04/2020 and 10/13/2018. The heart size is normal. Mediastinum is unremarkable. Lung faulkner again show some linear density at the left lung base which is unchanged and may represent some parenchymal scarring. There is also a ca lcified granuloma at the left lung base. No acute bony abnormalities are seen. Impression: Linear densities at the left lung base which are unchanged and may represent some parenchymal scarholly aiken Electronically signed by: Starr Pitt MD (12/02/2020 8:37 AM) NIRMALA
--- NOTE | 2020-12-02 08:56 | PHYS DOC ---
Past Medical History Past Medical History: Other Additional Past Medical Histor: CHRONIC PAIN, RLS Past Surgical History: Hip Replacement Additional Past Surgical Histo: BACK, HERNIA Smoking Status: Current Some Day Smoker Additional Information: cigar smoker Alcohol Use: None Drug Use: None General Adult EDM: Chief Complaint: FLU SYMPTOM HPI: HPI: Patient is a 65 year old male who presented to ER due to cough, nonproductive, body ache, chills for a week. Patient was diagnosed, tested positive for COVID- 19 yesterday. Patient came in today because he has been pain all over, not feeling well at all. He feels weak, had no energy, pain in his chest when he coughs. Patient denies any abdominal pain. Review of Systems: Review of Systems: Constitutional: Positive for fever or chills. [] Eyes: Denies change in visual acuity. [] HENT: Denies nasal congestion or sore throat. [] Respiratory: Positive for cough or shortness of breath. [] Cardiovascular: Positive for chest pain, no edema. [] GI: Denies abdominal pain, nausea, vomiting, bloody stools or diarrhea. [] : Denies dysuria. [] Musculoskeletal: Positive for back pain or joint pain. [] Integument: Denies rash. [] Neurologic: Denies headache, focal weakness or sensory changes. [] Endocrine: Denies polyuria or polydipsia. [] Lymphatic: Denies swollen glands. [] Psychiatric: Denies depression or anxiety. [] Heart Score: C/O Chest Pain: N/A HEART Score for Chest Pain: HEART Score for Chest Pain Response (Comments) Value History Slighlty/Non-Suspicious 0 ECG Normal 0 Age > 65 2 Risk Factors 1 or 2 Risk Factors 1 Troponin < Normal Limit 0 Total 3 Risk Factors: Risk Factors: DM, Current or recent (<one month) smoker, HTN, HLP, family history of CAD, obesity. Risk Scores: Score 0 - 3: 2.5% MACE over next 6 weeks - Discharge Home Score 4 - 6: 20.3% MACE over next 6 weeks - Admit for Clinical Observation Score 7 - 10: 72.7% MACE over next 6 weeks - Early Invasive Strategies Current Medications: Current Medications Medications (Trade) Dose Ordered Sig/Michael Start Time Stop Time Status Last Admin Dose Admin Acetaminophen (Tylenol) 1,000 mg 1X ONCE 12/02/20 09:15 12/02/20 09:16 Ibuprofen (Motrin) 800 mg 1X ONCE 12/02/20 09:15 12/02/20 09:16 Allergies: Allergies: Allergies Coded Allergies Type Severity Reaction Last Updated Verified No Known Drug Allergies 12/02/20 No Physical Exam: PE: Constitutional: Well developed, well nourished, no acute distress, non-toxic appearance. [] HENT: Normocephalic, atraumatic, bilateral external ears normal, oropharynx moist, no oral exudates, nose normal. [] Eyes: PERRLA, EOMI, conjunctiva normal, no discharge. [] Neck: Normal range of motion, no tenderness, supple, no stridor. [] Cardiovascular:Heart rate regular rhythm, no murmur [] Lungs & Thorax: Bilateral breath sounds clear to auscultation [] Abdomen: Bowel sounds normal, soft, no tenderness, no masses, no pulsatile yaritza s. [] Skin: Warm, dry, no erythema, no rash. [] Back: No tenderness, no CVA tenderness. [] Extremities: No tenderness, no cyanosis, no clubbing, ROM intact, no edema. [] Neurologic: Alert and oriented X 3, normal motor function, normal sensory function, no focal deficits noted. [] Psychologic: Affect normal, judgement normal, mood normal. [] Current Patient Data: Labs: Laboratory Tests Test 12/02/20 09:20 White Blood Count 5.6 x10^3/uL Red Blood Count 4.24 x10^6/uL Hemoglobin 13.2 g/dL Hematocrit 39.3 % Mean Corpuscular Volume 93 fL Mean Corpuscular Hemoglobin 31 pg Mean Corpuscular Hemoglobin Concent 34 g/dL Red Cell Distribution Width 13.6 % Platelet Count 231 x10^3/uL Neutrophils (%) (Auto) 67 % Lymphocytes (%) (Auto) 21 % Monocytes (%) (Auto) 8 % Eosinophils (%) (Auto) 3 % Basophils (%) (Auto) 1 % Neutrophils # (Auto) 3.8 x10^3/uL Lymphocytes # (Auto) 1.2 x10^3/uL Monocytes # (Auto) 0.4 x10^3/uL Eosinophils # (Auto) 0.2 x10^3/uL Basophils # (Auto) 0.0 x10^3/uL Sodium Level 145 mmol/L Potassium Level 3.9 mmol/L Chloride Level 110 mmol/L Carbon Dioxide Level 29 mmol/L Anion Gap 6 Blood Urea Nitrogen 10 mg/dL Creatinine 1.0 mg/dL Estimated GFR (Cockcroft-Gault) 91.3 BUN/Creatinine Ratio 10 Glucose Level 98 mg/dL Calcium Level 8.4 mg/dL Magnesium Level 2.3 mg/dL Total Bilirubin 0.1 mg/dL Aspartate Amino Transf (AST/SGOT) 12 U/L Alanine Aminotransferase (ALT/SGPT) 15 U/L Alkaline Phosphatase 62 U/L Troponin I Quantitative < 0.017 ng/mL GO-Hsi-D-Type Natriuretic Peptide 32 pg/mL Total Protein 6.1 g/dL Albumin 3.1 g/dL Albumin/Globulin Ratio 1.0 Lipase 138 U/L Current Medications Medications (Trade) Dose Ordered Sig/Michael Route PRN Reason Start Time Stop Time Status Last Admin Dose Admin Ibuprofen (Motrin) 800 mg 1X ONCE PO 12/02/20 09:15 12/02/20 09:16 DC 12/02/20 09:24 Acetaminophen (Tylenol) 1,000 mg 1X ONCE PO 12/02/20 09:15 12/02/20 09:16 DC 12/02/20 09:25 Sodium Chloride 1,000 ml @ 1,000 mls/hr 1X ONCE IV 12/02/20 09:00 12/02/20 09:59 DC 12/02/20 09:22 Vital Signs: Vital Signs Date Time Temp Pulse Resp B/P (MAP) Pulse Ox O2 Delivery O2 Flow Rate FiO2 12/02/20 08:08 97.8 56 36 143/68 (93) 97 Room Air 97.8 EKG: EKG: EKG was done at 749, heart rate 56 bpm, sinus rhythm, no ST segment elevation. No ectopy. Radiology/Procedures: Radiology/Procedures: [][facility] [address] [place] [address] IMAGING REPORT Signed PATIENT: ROMAN ROQUE ACCOUNT: [id number] : 1955 LOCATION: ER AGE: 65 SEX: M EXAM STATUS: REG ER ORD. PHYSICIAN: KRISTIAN THOMASON DO REASON: CHEST PAIN, SOA, COVID-19 INFECTION PROCEDURE: CHEST AP ONLY Chest AP portable at 0823: Reason for examination: Chest pain and shortness of breath. Covid 19 infection. Comparison is made to previous studies dated 05/04/2020 and 10/13/2018. The heart size is normal. Mediastinum is unremarkable. Lung faulkner again show some linear density at the left lung base which is unchanged and may represent some parenchymal scarring. There is also a calcified granuloma at the left lung base. No acute bony abnormalities are seen. Impression: Linear densities at the left lung base which are unchanged and may represent some parenchymal scarring. Electronically signed by: Bethany Brunson MD (12/02/2020 8:37 AM) [facility] DICTATED and SIGNED BY: BETHANY BRUNSON MD DATE: 12/02/20 [id number] 0 Course & Med Decision Making: Course & Med Decision Making Pertinent Labs and Imaging studies reviewed. (See chart for details) Patient is a 65-year-old male who presented to ER for evaluation of body ache, fever and chill, joint pain, cough. Patient was tested positive for COVID-19 yesterday. Patient chest x-ray did not show any infiltration. Oxygen saturation is 98% on room air. Patient was in no acute distress. Patient does not need to be admitted to hospital. He will be discharged home. Dragon Disclaimer: Dragon Disclaimer: This electronic medical record was generated, in whole or in part, using a voice recognition dictation system. Departure Departure Impression: Primary Impression: COVID-19 virus infection Disposition: 01 HOME / SELF CARE / HOMELESS Condition: STABLE Referrals: Keiry TOUSSAINT MD (PCP) Follow-up with your doctor as needed. Patient Instructions: Viral Syndrome Additional Instructions: You have been tested for or diagnosed with COVID-19. It is an infection caused by a new type of coronavirus. COVID-19 will cause cold-like or mild flu symptoms in most. It can cause more severe symptoms like problems breathing in some. There is no treatment for COVID-19. The body will clear the infection over time. Self-care will help to ease discomfort. Steps to Take: Self-Care Rest as needed. Healthy habits may help you feel better. Steps include: Choose healthy foods including fruits and vegetables. Drink water throughout the day. Get plenty of sleep each night. If you smoke, try to quit. It may ease breathing. Avoid alcohol. Keep Others Healthy The virus can spread to others. Droplets are released every time you sneeze or cough. The droplets can get into the mouth, nose, or eyes of people near you and lead to infection. To lower the chances of spreading COVID-19 to others: Stay at home until your doctor has said it is safe to leave. If you tested positive this will mean staying isolated until both of the following are true: At least 7 days have passed since the start of illness. You are free of fever for at least 72 hours without the use of medicine. During this time: - Avoid public areas, events, or transportation. Do not return to work or school until your doctor has said it is safe to do so. - Call ahead if you need to go to a medical center. Let them know you may have COVID-19. It will help them guide you where to go. They may also ask you to wear a facemask when you come to the office. - If you call for emergency medical services, let them know you may have COVID- 19. While at home: - Try to avoid close contact with others. Stay about 6 feet away. - If possible, spend most of your time in a separate room from others. - Use a face mask if you will be in close contact with others such as sharing a room or vehicle. - Have someone wipe down common surfaces in the home. Use household electric spot welder every day on areas like doorknobs, counters, or sinks. - Cough or sneeze into a tissue. Throw the tissue away right after use. If a tissue is not available, cough or sneeze into your elbow. - Wash your hands often. Wash them after sneezing or coughing. Use soap and water and wash for at least 20 seconds. Alcohol based hand last cleaner can be used if soap and wate r is not available. - Do not prepare food for others. Avoid sharing personal items like forks, spoons, or toothbrushes. - Avoid close contact with pets while you are sick. There is no evidence of the virus passing to pets. This is a safety step until more is known about this virus. Isolation can be frustrating. Social interaction can help. Keep in touch with friends and family through phone and tech options. You can still interact with others in your home, just keep a safe distance of about 6 feet. Follow-up: Your doctors office will check in with you to see if there are any changes in your health. You may be asked to keep track of symptoms to share with them. They will also let you know when you are clear to be in public again. Problems to Look Out For: Contact your doctor if your recovery is not going as you expect. Get emergency care if you have problems such as: - Trouble breathing - Nonstop chest pain or pressure - Changes in awareness, confusion, or problems waking - Lips or face have bluish color - Worsening of symptoms If you think you have an emergency, call for emergency medical services right away. As taken from [facility] KRISTIAN Womack DO December 02, 2020 08:56
[2020-12-02] MEDS ORDERED: IV NORMAL SALINE 1000ML BAG 1,000 ML IV ONE (09:00)
[2020-12-02] MEDS ORDERED: IBUPROFEN 400 MG TABLET. PO ONE (09:15)
[2020-12-02] MEDS ORDERED: ACETAMINOPHEN 500 MG TABLET PO ONE (09:15)
[2020-12-02 09:37] LABS: BASO % 1 % (0-3); EOS # 0.2 x10^3/uL (0.0-0.7); EOS % 3 % (0-3); HEMATOCRIT 39.3 % (39.0-53.0); HEMOGLOBIN 13.2 g/dL (13.0-17.5); LYMPH # 1.2 x10^3/uL (1.0-4.8); LYMPH % 21 % (24-48); MEAN CORPUSCULAR HEMOGLOBIN 31 pg (25-35); MEAN CORPUSCULAR HGB CONC 34 g/dL (31-37); MEAN CORPUSCULAR VOLUME 93 fL (79-100); MONO # 0.4 x10^3/uL (0.0-1.1); MONO % 8 % (0-9); NEUT # 3.8 x10^3/uL (1.8-7.7); NEUT % 67 % (31-73); PLATELET COUNT 231 x10^3/uL (140-400); RED BLOOD COUNT 4.24 x10^6/uL (4.30-5.70); RED CELL DISTRIBUTION WIDTH 13.6 % (11.5-14.5); WHITE BLOOD COUNT 5.6 x10^3/uL (4.0-11.0)
[2020-12-02 09:44] LABS: CALCIUM 8.4 mg/dL (8.5-10.1); GFR 91.3; POTASSIUM 3.9 mmol/L (3.5-5.1)
[2020-12-02 09:50] LABS: ALBUMIN 3.1 g/dL (3.4-5.0); TOTAL PROTEIN 6.1 g/dL (6.4-8.2)
[2020-12-02 09:51] LABS: MAGNESIUM 2.3 mg/dL (1.8-2.4); TOTAL BILIRUBIN 0.1 mg/dL (0.2-1.0)
[2020-12-02 10:21] VITALS: BP 165/72
--- NOTE | 2020-12-02 19:03 | EKG ---
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
== END 2020-12-02 10:46 | disposition home or self-care (01) ==
LOC: ER 07:39
DX: U07.1 COVID-19 (principal); G89.29 Other chronic pain; F17.200 Nicotine dependence, unspecified, uncomplicated
CPT/HCPCS: 36415; 71045; 80053; 83690; 83735; 83880; 84484; 85025; 93005; 96360; 99285; J7030

== ENCOUNTER 2021-05-13 14:54 | Inpatient (IN) | payer OTHER ==
[~2021-05-13] VITALS: Ht 170.2 cm; Wt 78.0 kg
[2021-05-13] MEDS ORDERED: ONDANSETRON PF 4 MG/2 ML VIAL. IVP ONE (15:30)
[2021-05-13] MEDS ORDERED: fentaNYL PF VIAL 100 MCG/2 ML VIAL IV PRN (15:30)
[2021-05-13] MEDS ORDERED: IV NORMAL SALINE 1000ML BAG 1,000 ML IV ONE (15:30)
[2021-05-13] MEDS ORDERED: hydrALAZINE 20 MG/ML VIAL. IVP ONE (15:30)
[2021-05-13 15:32] LABS: BASO % 0 % (0-3); EOS # 0.1 x10^3/uL (0.0-0.7); EOS % 1 % (0-3); HEMATOCRIT 45.9 % (39.0-53.0); HEMOGLOBIN 15.7 g/dL (13.0-17.5); LYMPH # 0.4 x10^3/uL (1.0-4.8); LYMPH % 2 % (24-48); MEAN CORPUSCULAR HEMOGLOBIN 32 pg (25-35); MEAN CORPUSCULAR HGB CONC 34 g/dL (31-37); MEAN CORPUSCULAR VOLUME 94 fL (79-100); MONO # 0.8 x10^3/uL (0.0-1.1); MONO % 4 % (0-9); NEUT # 17.4 x10^3/uL (1.8-7.7); NEUT % 93 % (31-73); PLATELET COUNT 200 x10^3/uL (140-400); RED BLOOD COUNT 4.91 x10^6/uL (4.30-5.70); WHITE BLOOD COUNT 18.7 x10^3/uL (4.0-11.0)
--- NOTE | 2021-05-13 15:40 | PHYS DOC ---
Past Medical History Past Medical History: Hypertension Past Surgical History: No Surgical History Smoking Status: Former Smoker Alcohol Use: Rarely General Adult EDM: Chief Complaint: NAUSEA/VOMITING/DIARRHEA HPI: HPI: Patient is a 66 year old male with a history of hypertension, chronic pain, who presents to the ED today complaining of moderate bilateral lower abdominal pain with nausea vomiting and diarrhea that began today. Patient denies any fever. Denies any hematemesis or melena. Describes the pain as sharp and intermittent. Denies anything relieving the pain. He states he has oxycodone at home but did not try it. He states he is fully vaccinated against Covid Review of Systems: Review of Systems: Constitutional: Denies fever or chills. [] Eyes: Denies change in visual acuity. [] HENT: Denies nasal congestion or sore throat. [] Respiratory: Denies cough or shortness of breath. [] Cardiovascular: Denies chest pain or edema. [] GI: Reports abdominal pain, nausea vomiting and diarrhea : Denies dysuria. [] Musculoskeletal: Denies back pain or joint pain. [] Integument: Denies rash. [] Neurologic: Denies headache, focal weakness or sensory changes. [] Psychiatric: Denies depression or anxiety. [] Heart Score: C/O Chest Pain: N/A Risk Factors: Risk Factors: DM, Current or recent (<one month) smoker, HTN, HLP, family history of CAD, obesity. Risk Scores: Score 0 - 3: 2.5% MACE over next 6 weeks - Discharge Home Score 4 - 6: 20.3% MACE over next 6 weeks - Admit for Clinical Observation Score 7 - 10: 72.7% MACE over next 6 weeks - Early Invasive Strategies Current Medications: Current Medications Medications (Trade) Dose Ordered Sig/Michael Start Time Stop Time Status Last Admin Dose Admin Fentanyl Citrate (Fentanyl 2ml Vial) 50 mcg PRN Q15MIN PRN 05/13/21 15:30 05/14/21 15:29 Hydralazine HCl (Apresoline Inj) 10 mg 1X ONCE 05/13/21 15:30 05/13/21 15:31 DC Ondansetron HCl (Zofran) 4 mg 1X ONCE 05/13/21 15:30 05/13/21 15:31 DC Sodium Chloride 1,000 ml @ 1,000 mls/hr 1X ONCE 05/13/21 15:30 05/13/21 16:29 Allergies: Allergies: Allergies Coded Allergies Type Severity Reaction Last Updated Verified No Known Drug Allergies 05/13/21 No Physical Exam: PE: Constitutional: Well developed, well nourished, no acute distress, non-toxic appearance. [] HENT: Normocephalic, atraumatic, bilateral external ears normal, oropharynx moist, no oral exudates, nose normal. [] Eyes: PERRLA, EOMI, conjunctiva normal, no discharge. [] Neck: Normal range of motion, no tenderness, supple, no stridor. [] Cardiovascular:Heart rate regular rhythm, no murmur [] Lungs & Thorax: Bilateral breath sounds clear to auscultation [] Abdomen: Bowel sounds normal, soft, diffuse tenderness throughout the lower abdomen, no right upper quadrant tenderness, no left upper quadrant tenderness, negative psoas sign, negative Rovsing sign, no guarding no masses, no pulsatile masses. [] Skin: Warm, dry, no erythema, no rash. [] Back: No tenderness, no CVA tenderness. [] Extremities: No tenderness, no cyanosis, no clubbing, ROM intact, no edema. [] Neurologic: Alert and oriented X 3, normal motor function, normal sensory function, no focal deficits noted. [] Psychologic: Patient is tearful Current Patient Data: Labs: Laboratory Tests Test 05/13/21 15:14 White Blood Count 18.7 x10^3/uL (4.0-11.0) H Red Blood Count 4.91 x10^6/uL (4.30-5.70) Hemoglobin 15.7 g/dL (13.0-17.5) Hematocrit 45.9 % (39.0-53.0) Mean Corpuscular Volume 94 fL (79-100) Mean Corpuscular Hemoglobin 32 pg (25-35) Mean Corpuscular Hemoglobin Concent 34 g/dL (31-37) Red Cell Distribution Width 14.0 % (11.5-14.5) Platelet Count 200 x10^3/uL (140-400) Neutrophils (%) (Auto) 93 % (31-73) H Lymphocytes (%) (Auto) 2 % (24-48) L Monocytes (%) (Auto) 4 % (0-9) Eosinophils (%) (Auto) 1 % (0-3) Basophils (%) (Auto) 0 % (0-3) Neutrophils # (Auto) 17.4 x10^3/uL (1.8-7.7) H Lymphocytes # (Auto) 0.4 x10^3/uL (1.0-4.8) L Monocytes # (Auto) 0.8 x10^3/uL (0.0-1.1) Eosinophils # (Auto) 0.1 x10^3/uL (0.0-0.7) Basophils # (Auto) 0.0 x10^3/uL (0.0-0.2) Platelet Estimate Pending Laboratory Tests 05/13/21 15:14 Vital Signs: Vital Signs Date Time Temp Pulse Resp B/P (MAP) Pulse Ox O2 Delivery O2 Flow Rate FiO2 05/13/21 14:54 97.8 65 20 212/98 (136) 98 Room Air 97.8 EKG: EK interpreted by Dr. Osuna sinus rhythm heart rate 65 no STEMI [] Radiology/Procedures: Radiology/Procedures: []PROCEDURE: CT ABD PELV W/ IV CONTRST ONLY CT OF THE ABDOMEN AND PELVIS WITH IV CONTRAST. History: Reason: abd pain,n/v/d Comparison:None. Procedure: Contiguous axial images of the abdomen and pelvis were performed after the administration of 75 cc of Omni 300 IV contrast. Oral contrast: No. Findings: There is beam Brock artifact due to hardware from prior L3 S1 laminectomy fusion and bilateral total hip arthroplasty. The transverse colon is collapsed limiting its evaluation. The gallbladder is partially collapsed but appears normal. The appendix is normal. There is a few mildly distended fluid-filled loops of small bowel. Liver: Unremarkable Spleen: Unremarkable Pancreas: Unremarkable Adrenal Glands: Thickening of the left adrenal is likely incidental Kidneys: Unremarkable There is no mass or lymphadenopathy. There is no free air. There is no free fluid. The urinary bladder appears normal. There is an inguinal canal hernia on the left which contains fat and some soft tissue density but does not appear to contain bowel. Impression: 1. Left-sided inguinal canal hernia without evidence of obstruction or incarceration. 2. Distended fluid-filled loops of small bowel likely secondary to mild ileus. End Impression PQRS Compliance Statement: One or more of the following individualized dose reduction techniques were utilized for this examination: 1. Automated exposure control 2. Adjustment of the mA and/or kV according to patient size 3. Use of iterative reconstruction technique Electronically signed by: Yuliana Edmondson III, MD (05/13/2021 4:51 PM) [facility] DICTATED and SIGNED BY: YULIANA EDMONDSON III, MD DATE: 05/13/21 [id number] 0 Course & Med Decision Making: Course & Med Decision Making Pertinent Labs and Imaging studies reviewed. (See chart for details) This is a 66-year-old male patient who presents to the ED today complaining of lower abdominal pain, symptoms began today. Also complaining of vomiting and diarrhea. Patient denies any fever. Patient arrives in the ED with a blood pressure of 212/ 98, heart rate in the 60s he states he did not take his blood pressure medicine today because he had pain to his abdomen, at some point he changed the story and stated he does not have high blood pressure. CBC with a WBC of 18.7 with a left shift and bandemia, CMP with no acute findings CT of the abdomen and pelvis was noted for an ileus Patient was given IV fluids nausea medicine and pain medicine in the ED. He continued to vomit. Spoke with Dr. Linda who accepted patient for admission. Jorge Disclaimer: Jorge Disclaimer: This electronic medical record was generated, in whole or in part, using a voice recognition dictation system. Departure Departure Impression: Primary Impression: Intractable nausea and vomiting Additional Impressions: Intractable abdominal pain Accelerated hypertension Disposition: ADMITTED INPATIENT Condition: STABLE Referrals: Keiry TOUSSAINT MD (PCP) IRVING ELENA APRN May 13, 2021 15:40
[2021-05-13 15:43] LABS: CALCIUM 8.9 mg/dL (8.5-10.1); CREATININE 1.2 mg/dL (0.7-1.3); POTASSIUM 3.9 mmol/L (3.5-5.1)
[2021-05-13 15:49] LABS: ALBUMIN 3.8 g/dL (3.4-5.0); MAGNESIUM 2.1 mg/dL (1.8-2.4); TOTAL BILIRUBIN 0.4 mg/dL (0.2-1.0); TOTAL PROTEIN 7.5 g/dL (6.4-8.2)
[2021-05-13] MEDS ORDERED: CONTRAST GIVEN. MC PRN (16:00)
[2021-05-13] MEDS ORDERED: IOHEXOL 300 MG/ML 100ML VIAL. IV ONE (16:00)
[2021-05-13 16:26] LABS: % ATYL 1 % (0-0); % BANDS 11 % (0-9); % EOS 1 % (0-5); % LYMPHS 3 % (24-48); % MONOS 8 % (0-10); % SEGS 76 % (35-66)
[2021-05-13 16:28] LABS: PLT ESTIMATE ADEQUATE (ADEQUATE)
--- NOTE | 2021-05-13 16:46 | EKG ---
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
--- NOTE | 2021-05-13 16:53 | RAD ---
CT OF THE ABDOMEN AND PELVIS WITH IV CONTRAST. History: Reason: abd pain,n/v/d Comparison:None. Procedure: Contiguous axial images of the abdomen and pelvis were performed after the administration of 75 cc o f Omni 300 IV contrast. Oral contrast: No. Findings: There is beam Brock artifact due to hardware from prior L3 S1 laminectomy fusion and bilateral tota l hip arthroplasty. The transverse colon is collapsed limiting its evaluation. The gallbladder is partially collapsed but appears normal. The appendix is normal. There is a few mildly distended fluid-filled loops of small bowel. Liver: Unremarkable Spleen: Unremarkable Pancreas: Unremarkable Adrenal Glands: Thickening of the left adrenal is likely incidental Kidneys: Unremarkable There is no mass or lymphadenopathy. There is no free air. There is no free fluid. The urinary bladder appears normal. There is an inguinal canal hernia on the left which contains fat and some soft tissue density but martinez s not appear to contain bowel. Impression: 1. Left-sided inguinal canal hernia without evidence of obstruction or incarceration. 2. Distended fluid-filled loops of small bowel likely secondary to mild ileus. End Impression PQRS Compliance Statement: One or more of the following individualized dose reduction techniques were utilized for this examinat ion: 1. Automated exposure control 2. Adjustment of the mA and/or kV according to patient size 3. Use of iterative reconstruction technique Electronically signed by: Blas Denny III, MD (05/13/2021 4:51 PM) [facility]
[2021-05-13 17:22] LABS: BILIRUBIN,URINE NEGATIVE (NEG); CLARITY,URINE CLEAR; COLOR,URINE YELLOW; NITRITE,URINE NEGATIVE (NEG); PROTEIN,URINE NEGATIVE (NEG-TRACE)
[2021-05-13 17:41] LABS: BARBITURATES NEG (NEG); BENZODIAZEPINES POS (NEG); CANNABINOIDS POS (NEG); COCAINE POS (NEG); METHADONE NEG (NEG); OPIATES NEG (NEG); PHENCYCLIDINE NEG (NEG)
[2021-05-13 17:43] LABS: BACTERIA,URINE 0 /HPF (0-FEW); RBC,URINE 0 /HPF (0-2); WBC,URINE 0 /HPF (0-4)
[2021-05-13 18:02] LABS: AMPHETAMINE/METHAMPHETAMINE NEG (NEG)
[2021-05-13] MEDS ORDERED: LORazepam 0.5 MG TABLET PO PRN (18:15)
[2021-05-13] MEDS ORDERED: ONDANSETRON PF 4 MG/2 ML VIAL. IVP PRN ×2 (18:15→21:00)
[2021-05-13] MEDS ORDERED: ACETAMINOPHEN 325 MG TABLET. PO PRN (18:15)
[2021-05-13] MEDS ORDERED: ENOXAPARIN 40 MG/0.4 ML SYRINGE. SQ SCH (18:15)
[2021-05-13] MEDS ORDERED: PROCHLORPERAZINE 10 MG/2 ML VIAL. IV PRN (18:15)
[2021-05-13] MEDS ORDERED: DEXTROSE 50% 25 GM / 50ML DISP.SYRIN. IV PRN (18:15)
[2021-05-13] MEDS ORDERED: SENNOSIDES 8.6 MG TABLET PO PRN (18:15)
[2021-05-13] MEDS ORDERED: DOCUSATE SODIUM 100 MG CAPSULE. PO PRN (18:15)
[2021-05-13] MEDS ORDERED: ZOLPIDEM 5 MG TABLET. PO PRN (18:15)
--- NOTE | 2021-05-13 19:47 | PDOC1 ---
History and Physical Date of Service: DOS: DATE: 05/13/21 TIME: 19:45 Chief Complaint: Chief Complain: N/V History of Present Illness: HPI: Hx obtained from discussion with the ED physician and chart review: Patient is a 66-year-old male with past medical history of hypertension, bilateral hip replacement and chronic opioid use for his chronic pain who comes in to the ED with nausea vomiting that started this morning. Patient had multiple episodes of vomiting and abdominal cramping. Abdominal pain is in the epigastric and lower abdominal area that occurs with nausea vomiting. Has never had episodes like this before. Patient currently denies any fevers, hematemesis, melena, chest pain, diarrhea, shortness of breath, or any alleviating or exacerbating factors. Patient is vaccinated for Covid. Past Medical/Surgical History: PMH/PSH: PMHx: HTN SurgHx: Bilateral Hip Replacement Allergies: Allergies: Coded Allergies: No Known Drug Allergies (Unverified , 05/13/21) Family History: Family History: Reviewed with no relevant findings Social History: Social History: Smoking Status: Former Smoker, daily Marijuana 1 joint per day Alcohol Use: Rarely Current Medications: Current Medications Current Medications Fentanyl Citrate (Fentanyl 2ml Vial) 50 mcg PRN Q15MIN PRN IV PAIN GREATER THAN 3/10 Last administered on 05/13/21at 16:09; Start 05/13/21 at 15:30; Stop 05/14/21 at 15:29 Ondansetron HCl (Zofran) 4 mg 1X ONCE IVP Last administered on 05/13/21at 16:08; Start 05/13/21 at 15:30; Stop 05/13/21 at 15:31; Status DC Hydralazine HCl (Apresoline Inj) 10 mg 1X ONCE IVP ; Start 05/13/21 at 15:30; Stop 05/13/21 at 15:31; Status DC Sodium Chloride 1,000 ml @ 1,000 mls/hr 1X ONCE IV Last administered on 05/13/21at 16:08; Start 05/13/21 at 15:30; Stop 05/13/21 at 16:29; Status DC Iohexol (Omnipaque 300 Mg/ml) 75 ml 1X ONCE IV Last administered on 05/13/21at 16:28; Start 05/13/21 at 16:00; Stop 05/13/21 at 16:01; Status DC Info (CONTRAST GIVEN -- Rx MONITORING) 1 each PRN DAILY PRN MC SEE COMMENTS; Start 05/13/21 at 16:00; Stop 05/15/21 at 15:59 Sennosides (Senna) 17.2 mg PRN BID PRN PO CONSTIPATION; Start 05/13/21 at 18:15 Docusate Sodium (Colace) 100 mg PRN DAILY PRN PO HARD STOOLS; Start 05/13/21 at 18:15 Ondansetron HCl (Zofran) 4 mg PRN Q6HRS PRN IVP NAUSEA/VOMITING; Start 05/13/21 at 18:15 Dextrose (Dextrose 50%-Water Syringe) 12.5 gm PRN Q15MIN PRN IV SEE COMMENTS; Start 05/13/21 at 18:15 Sodium Chloride 1,000 ml @ 100 mls/hr Q10H IV ; Start 05/13/21 at 18:15 Acetaminophen (Tylenol) 650 mg PRN Q4HRS PRN PO TEMP OVER 100.4F OR MILD PAIN; Start 05/13/21 at 18:15 Lorazepam (Ativan) 0.5 mg PRN Q6HRS PRN PO ANXIETY / AGITATION; Start 05/13/21 at 18:15 Lorazepam (Ativan Inj) 0.25 mg PRN Q4HRS PRN IV ANXIETY / AGITATION; Start 05/13/21 at 18:15 Enoxaparin Sodium (Lovenox 40mg Syringe) 40 mg Q24H SQ ; Start 05/13/21 at 18:15 Prochlorperazine Edisylate (Compazine) 10 mg PRN Q6HRS PRN IV NAUSEA/VOMITING; Start 05/13/21 at 18:15 Zolpidem Tartrate (Ambien) 2.5 mg PRN QHS PRN PO INSOMNIA; Start 05/13/21 at 18:15 Dicyclomine HCl (Bentyl) 10 mg TID PRN PRN IM ABDOMINAL CRAMPS; Start 05/13/21 at 18:15 ROS: Review of Systems Review of System REVIEW OF SYSTEMS: GENERAL: Denies weakness SKIN: No bruising, hair changes or rashes. EYES: No blurred, double or loss of vision. NOSE AND THROAT: No history of nosebleeds, hoarseness or sore throat. HEART: No history of palpitations, chest pain or shortness of breath on exertion. LUNGS: Denies cough, hemoptysis, wheezing or shortness of breath. GASTROINTESTINAL: Denies changes in appetite, nausea, vomiting, diarrhea or constipation. GENITOURINARY: No history of frequency, urgency, hesitancy or nocturia. NEUROLOGIC: Denies history of numbness, tingling, or tremor. PSYCHIATRIC: No history of panic, anxiety or depression. ENDOCRINE: No history of heat or cold intolerance, polyuria or polydipsia. EXTREMITIES: Denies joint pain, pain on walking or stiffness. Physical Exam: Vital Signs: Vital Signs Date Time Temp Pulse Resp B/P (MAP) Pulse Ox O2 Delivery O2 Flow Rate FiO2 05/13/21 18:34 58 19 185/77 (113) 98 Room Air 05/13/21 14:54 97.8 97.8 Physcial Exam: GEN: No apparent distress. Alert and oriented HEENT: Normal cephalic, atraumatic, external auditory canals are patent EYES: Extraocular muscles are intact, pupil are equally round and reactive to light and accommodation MUSCULOSKELETAL: Well developed , well nourished, good range of motion ENDOCRINE: No thyromegaly was palpated LYMPHATICS: No cervical chain or axillary nodes were noted HEMATOPOIETIC: No bruising NECK: Supple, no JVD, no thyromegaly was noted LUNGS: Clear to auscultation in all lung faulkner without rhonchi or wheezing HEART: RRR, S!, S2 present. Peripheral pulses intact, no obvious murmurs noted ABDOMEN: Soft, nontender. Positive bowel sounds, no organomegaly, normal bowel sounds EXTREMITIES: Without clubbing, cyanosis, or edema. Pedal pulses intact. Negative Homans sign NEUROLOGIC: Normal speech and tone. A&O x 3, moves all extremities, no obvious focal deficits PSYCHIATRIC: Normal affect, normal mood. Stable SKIN: No ulcerations or rashes, good skin turgor, no jaundice VASCULAR: Good capillary refill, neurovascular bundle appears to be intact Labs: Labs: Laboratory Tests Test 05/13/21 15:14 05/13/21 17:14 05/13/21 18:35 White Blood Count 18.7 x10^3/uL (4.0-11.0) Red Blood Count 4.91 x10^6/uL (4.30-5.70) Hemoglobin 15.7 g/dL (13.0-17.5) Hematocrit 45.9 % (39.0-53.0) Mean Corpuscular Volume 94 fL (79-100) Mean Corpuscular Hemoglobin 32 pg (25-35) Mean Corpuscular Hemoglobin Concent 34 g/dL (31-37) Red Cell Distribution Width 14.0 % (11.5-14.5) Platelet Count 200 x10^3/uL (140-400) Neutrophils (%) (Auto) 93 % (31-73) Lymphocytes (%) (Auto) 2 % (24-48) Monocytes (%) (Auto) 4 % (0-9) Eosinophils (%) (Auto) 1 % (0-3) Basophils (%) (Auto) 0 % (0-3) Neutrophils # (Auto) 17.4 x10^3/uL (1.8-7.7) Lymphocytes # (Auto) 0.4 x10^3/uL (1.0-4.8) Monocytes # (Auto) 0.8 x10^3/uL (0.0-1.1) Eosinophils # (Auto) 0.1 x10^3/uL (0.0-0.7) Basophils # (Auto) 0.0 x10^3/uL (0.0-0.2) Segmented Neutrophils % 76 % (35-66) Band Neutrophils % 11 % (0-9) Lymphocytes % 3 % (24-48) Atypical Lymphocytes % (Manual) 1 % (0-0) Monocytes % 8 % (0-10) Eosinophils % 1 % (0-5) Platelet Estimate Adequate (ADEQUATE) Sodium Level 143 mmol/L (136-145) Potassium Level 3.9 mmol/L (3.5-5.1) Chloride Level 106 mmol/L (98-107) Carbon Dioxide Level 29 mmol/L (21-32) Anion Gap 8 (6-14) Blood Urea Nitrogen 8 mg/dL (8-26) Creatinine 1.2 mg/dL (0.7-1.3) Estimated GFR (Cockcroft-Gault) 61.0 BUN/Creatinine Ratio 7 (6-20) Glucose Level 116 mg/dL (70-99) Calcium Level 8.9 mg/dL (8.5-10.1) Magnesium Level 2.1 mg/dL (1.8-2.4) Total Bilirubin 0.4 mg/dL (0.2-1.0) Aspartate Amino Transf (AST/SGOT) 17 U/L (15-37) Alanine Aminotransferase (ALT/SGPT) 18 U/L (16-63) Alkaline Phosphatase 70 U/L (46-116) Troponin I Quantitative < 0.017 ng/mL (0.000-0.055) < 0.017 ng/mL (0.000-0.055) BD-Brw-W-Type Natriuretic Peptide 23 pg/mL (0-124) Total Protein 7.5 g/dL (6.4-8.2) Albumin 3.8 g/dL (3.4-5.0) Albumin/Globulin Ratio 1.0 (1.0-1.7) SARS-CoV-2 Antigen (Rapid) Negative (NEGATIVE) Urine Collection Type Unknown Urine Color Yellow Urine Clarity Clear Urine pH 8.0 (<5.0-8.0) Urine Specific [place] >=1.030 (1.000-1.030) Urine Protein Negative mg/dL (NEG-TRACE) Urine Glucose (UA) Negative mg/dL (NEG) Urine Ketones (Stick) Negative mg/dL (NEG) Urine Blood Negative (NEG) Urine Nitrite Negative (NEG) Urine Bilirubin Negative (NEG) Urine Urobilinogen Dipstick 1.0 mg/dL (0.2 mg/dL) Urine Leukocyte Esterase Negative (NEG) Urine RBC 0 /HPF (0-2) Urine WBC 0 /HPF (0-4) Urine Squamous Epithelial Cells Occ /LPF Urine Bacteria 0 /HPF (0-FEW) Urine Opiates Screen Neg (NEG) Urine Methadone Screen Neg (NEG) Urine Barbiturates Neg (NEG) Urine Phencyclidine Screen Neg (NEG) Urine Amphetamine/Methamphetamine Neg (NEG) Urine Benzodiazepines Screen Pos (NEG) Urine Cocaine Screen Pos (NEG) Urine Cannabinoids Screen Pos (NEG) Urine Ethyl Alcohol Neg (NEG) Laboratory Tests Test 05/13/21 15:14 05/13/21 17:14 05/13/21 18:35 White Blood Count 18.7 x10^3/uL (4.0-11.0) Red Blood Count 4.91 x10^6/uL (4.30-5.70) Hemoglobin 15.7 g/dL (13.0-17.5) Hematocrit 45.9 % (39.0-53.0) Mean Corpuscular Volume 94 fL (79-100) Mean Corpuscular Hemoglobin 32 pg (25-35) Mean Corpuscular Hemoglobin Concent 34 g/dL (31-37) Red Cell Distribution Width 14.0 % (11.5-14.5) Platelet Count 200 x10^3/uL (140-400) Neutrophils (%) (Auto) 93 % (31-73) Lymphocytes (%) (Auto) 2 % (24-48) Monocytes (%) (Auto) 4 % (0-9) Eosinophils (%) (Auto) 1 % (0-3) Basophils (%) (Auto) 0 % (0-3) Neutrophils # (Auto) 17.4 x10^3/uL (1.8-7.7) Lymphocytes # (Auto) 0.4 x10^3/uL (1.0-4.8) Monocytes # (Auto) 0.8 x10^3/uL (0.0-1.1) Eosinophils # (Auto) 0.1 x10^3/uL (0.0-0.7) Basophils # (Auto) 0.0 x10^3/uL (0.0-0.2) Segmented Neutrophils % 76 % (35-66) Band Neutrophils % 11 % (0-9) Lymphocytes % 3 % (24-48) Atypical Lymphocytes % (Manual) 1 % (0-0) Monocytes % 8 % (0-10) Eosinophils % 1 % (0-5) Platelet Estimate Adequate (ADEQUATE) Sodium Level 143 mmol/L (136-145) Potassium Level 3.9 mmol/L (3.5-5.1) Chloride Level 106 mmol/L (98-107) Carbon Dioxide Level 29 mmol/L (21-32) Anion Gap 8 (6-14) Blood Urea Nitrogen 8 mg/dL (8-26) Creatinine 1.2 mg/dL (0.7-1.3) Estimated GFR (Cockcroft-Gault) 61.0 BUN/Creatinine Ratio 7 (6-20) Glucose Level 116 mg/dL (70-99) Calcium Level 8.9 mg/dL (8.5-10.1) Magnesium Level 2.1 mg/dL (1.8-2.4) Total Bilirubin 0.4 mg/dL (0.2-1.0) Aspartate Amino Transf (AST/SGOT) 17 U/L (15-37) Alanine Aminotransferase (ALT/SGPT) 18 U/L (16-63) Alkaline Phosphatase 70 U/L (46-116) Troponin I Quantitative < 0.017 ng/mL (0.000-0.055) < 0.017 ng/mL (0.000-0.055) ZQ-Bdz-C-Type Natriuretic Peptide 23 pg/mL (0-124) Total Protein 7.5 g/dL (6.4-8.2) Albumin 3.8 g/dL (3.4-5.0) Albumin/Globulin Ratio 1.0 (1.0-1.7) SARS-CoV-2 Antigen (Rapid) Negative (NEGATIVE) Urine Collection Type Unknown Urine Color Yellow Urine Clarity Clear Urine pH 8.0 (<5.0-8.0) Urine Specific [place] >=1.030 (1.000-1.030) Urine Protein Negative mg/dL (NEG-TRACE) Urine Glucose (UA) Negative mg/dL (NEG) Urine Ketones (Stick) Negative mg/dL (NEG) Urine Blood Negative (NEG) Urine Nitrite Negative (NEG) Urine Bilirubin Negative (NEG) Urine Urobilinogen Dipstick 1.0 mg/dL (0.2 mg/dL) Urine Leukocyte Esterase Negative (NEG) Urine RBC 0 /HPF (0-2) Urine WBC 0 /HPF (0-4) Urine Squamous Epithelial Cells Occ /LPF Urine Bacteria 0 /HPF (0-FEW) Urine Opiates Screen Neg (NEG) Urine Methadone Screen Neg (NEG) Urine Barbiturates Neg (NEG) Urine Phencyclidine Screen Neg (NEG) Urine Amphetamine/Methamphetamine Neg (NEG) Urine Benzodiazepines Screen Pos (NEG) Urine Cocaine Screen Pos (NEG) Urine Cannabinoids Screen Pos (NEG) Urine Ethyl Alcohol Neg (NEG) Images: Images PROCEDURE: CT ABD PELV W/ IV CONTRST ONLY Impression: 1. Left-sided inguinal canal hernia without evidence of obstruction or incarceration. 2. Distended fluid-filled loops of small bowel likely secondary to mild ileus. Assessment/Plan Assessment/Plan Intractable nausea vomiting, possible cyclic vomiting syndrome Mild ileus Cannabinoid positivity Polysubstance abuse Reactive leukocytosis likely related to ileus Admit to hospitalist service for further management Continue IV fluids Keep n.p.o. Bentyl intramuscular every 8 as needed Aspiration precautions Hot shower upon arrival to the floor CHRISS SCD for DVT prophylaxis Protonix IV GI prophylaxis ADA diet CODE STATUS full Discussed with RN and SW Disposition inpatient management as above DPOA: [facility] Justifications for Admission Other Justification intractable N/V ANGEL NAVARRO MD May 13, 2021 19:47
[2021-05-13 19:50] VITALS: BP 190/73
[2021-05-13] MEDS: DICYCLOMINE 20 MG/2 ML VIAL. IM PRN (19:55)
[2021-05-13] MEDS: IV NORMAL SALINE 1000ML BAG 1,000 ML IV SCH (19:55)
[2021-05-13 20:08] VITALS: BP 146/74
[2021-05-13] MEDS: PANTOPRAZOLE IV PUSH 40 MG VIAL. IVP SCH (21:48)
[2021-05-13 23:00] VITALS: BP 165/73
[2021-05-14 03:48] VITALS: BP 176/70
[2021-05-14] MEDS: IV NORMAL SALINE 1000ML BAG 1,000 ML IV SCH ×2 (04:15→14:15)
[2021-05-14] MEDS: DICYCLOMINE 20 MG/2 ML VIAL. IM PRN (04:28)
[2021-05-14 07:00] VITALS: BP 138/65
[2021-05-14 07:59] LABS: BASO % 0 % (0-3); EOS % 0 % (0-3); HEMOGLOBIN 14.8 g/dL (13.0-17.5); LYMPH # 1.6 x10^3/uL (1.0-4.8); LYMPH % 11 % (24-48); MEAN CORPUSCULAR HEMOGLOBIN 31 pg (25-35); MEAN CORPUSCULAR HGB CONC 33 g/dL (31-37); MEAN CORPUSCULAR VOLUME 94 fL (79-100); MONO # 0.5 x10^3/uL (0.0-1.1); MONO % 4 % (0-9); NEUT # 12.2 x10^3/uL (1.8-7.7); NEUT % 85 % (31-73); PLATELET COUNT 207 x10^3/uL (140-400); RED BLOOD COUNT 4.79 x10^6/uL (4.30-5.70); RED CELL DISTRIBUTION WIDTH 13.9 % (11.5-14.5); WHITE BLOOD COUNT 14.3 x10^3/uL (4.0-11.0)
[2021-05-14 08:22] LABS: CALCIUM 8.3 mg/dL (8.5-10.1); MAGNESIUM 2.3 mg/dL (1.8-2.4); PHOSPHORUS 2.5 mg/dL (2.6-4.7); POTASSIUM 3.7 mmol/L (3.5-5.1)
[2021-05-14] MEDS: PANTOPRAZOLE IV PUSH 40 MG VIAL. IVP SCH (08:54)
[2021-05-14] MEDS ORDERED: FLU VACC QUAD 21-22 (6MOS+) PF 0.5 ML SYRINGE. VAX IM ONE (09:00)
[2021-05-14 11:00] VITALS: BP 146/59
--- NOTE | 2021-05-14 11:49 | NUR ---
CHRIS following. Discussed with RN, pt from home, room air, NPO, COVID-19 negative. LORI consult for cocaine use/abuse. CHRIS will continue to follow. Addendum: 05/14/21 at 1611 by BALDEV PEREZ Toby DIAZ) met with pt, pt very stressed lately, smokes weed for pain control, uses cocaine socially. No mental health history. Pt provided with [facility] and RSI, stated he may call [facility]. Lori cleared.
[2021-05-14] MEDS ORDERED: DICY10CA3 PO (15:24)
--- NOTE | 2021-05-14 15:28 | PDOC3 ---
[facility]-Discharge Summary Date of Admission: Date of Admission: May 13, 2021 Date of Discharge: Date of Discharge: May 14, 2021 Admission Diagnosis: Problems: (1) Intractable nausea and vomiting Discharge Diagnosis: Discharge Diagnosis: Same Procedures: Procedures: CT abdomen pelvis Impression: 1. Left-sided inguinal canal hernia without evidence of obstruction or incarceration. 2. Distended fluid-filled loops of small bowel likely secondary to mild ileus. Hospital Course: Hospital Course: Hx obtained from discussion with the ED physician and chart review: Patient is a 66-year-old male with past medical history of hypertension, bilateral hip replacement and chronic opioid use for his chronic pain who comes in to the ED with nausea vomiting that started this morning. Patient had multiple episodes of vomiting and abdominal cramping. Abdominal pain is in the epigastric and lower abdominal area that occurs with nausea vomiting. Has never had episodes like this before. Patient currently denies any fevers, hematemesis, melena, chest pain, diarrhea, shortness of breath, or any alleviating or exacerbating factors. Patient is vaccinated for Covid. 05/14 Patient evaluated and examined at bedside. Reports he was feeling much better would like to try diet. He has been doing well with the diet no nausea vomiting after. Would like to discharge at this point which I agree with we will send him home with some as needed Yashira as this seemed to help during his admission. Otherwise follow-up with primary care as needed. Disposition: Disposition/Orders: D/C to Home Activity: Activity: Resume previous activity Diet: Diet: Regular Medications: Home Meds Active Scripts Dicyclomine Hcl (DICYCLOMINE HCL) 10 Mg Capsule, 1 CAP PO PRN Q6HRS for GI upset, #60 CAP 2 Refills Prov:KAMALA JONES MD 05/14/21 Benzonatate (TESSALON PERLE) 100 Mg Capsule, 100 MG PO TID PRN for COUGH for 4 Days, #12 CAP Prov:DAHIANA ANDERSON DO 05/04/20 Guaifenesin (MUCINEX) 600 Mg Tablet.er, 1 TAB PO BID for cough for 5 Days, #10 TAB 0 Refills Prov:DAHIANA ANDERSON DO 05/04/20 Lisinopril (LISINOPRIL) 10 Mg Tablet, 10 MG PO DAILY for BP for 30 Days, #30 TAB Prov:EBONI MCWILLIAMS MD 10/14/18 Reported Medications Oxycodone Hcl (OXYCODONE HCL IMMED.RELEASE ) 5 Mg Tablet, 5 MG PO TID for pain, TAB 0 Refills 07/28/19 Diazepam (DIAZEPAM) 10 Mg Tablet, 10 MG PO BID PRN for ANXIETY, TAB 05/05/18 Trazodone Hcl (TRAZODONE HCL) 100 Mg Tablet, 100 MG PO HS 07/25/13 Scheduled Dicyclomine Hcl (Dicyclomine Hcl), 1 CAP PO PRN Q6HRS Guaifenesin (Mucinex), 1 TAB PO BID Lisinopril (Lisinopril), 10 MG PO DAILY Oxycodone Hcl (Oxycodone Hcl Immed.release ), 5 MG PO TID, (Reported) Trazodone Hcl (Trazodone Hcl), 100 MG PO HS, (Reported) Scheduled PRN Benzonatate (Tessalon Perle), 100 MG PO TID PRN for COUGH Diazepam (Diazepam), 10 MG PO BID PRN for ANXIETY, (Reported) Justicifation of Admission Dx: Justifications for Admission: Justification of Admission Dx: Yes (Intractable abdominal pain nausea vomiting) KAMALA JONES MD May 14, 2021 15:28
--- NOTE | 2021-05-14 15:51 | NUR ---
Discharge Note: ROMAN ROQUE Discharge instructions and discharge home medications reviewed with Patient and a copy given. All questions have been answered and understanding verbalized. The following instructions and handouts were given: discharge instructions, new prescription, education and follow up recommendations. Discontinued lines and drains: Peripheral IV discontinued intact. Patient discharged to Home or Self Care with Family Member via Ambulated off unit by [employer].
== END 2021-05-14 15:51 | disposition home or self-care (01) | DRG 390 ==
LOC: ER 14:54 → MERGE 17:42 → 5 SOUTH 17:42
PROVIDERS: ADMIT Internal Medicine; ATTEND Internal Medicine
DX: K56.7 Ileus, unspecified (principal); F19.10 Other psychoactive substance abuse, uncomplicated; D72.828 Other elevated white blood cell count; I10 Essential (primary) hypertension; Z79.891 Long term (current) use of opiate analgesic; Z87.891 Personal history of nicotine dependence; Z96.643 Presence of artificial hip joint, bilateral; G89.29 Other chronic pain; Z20.822 Contact with and (suspected) exposure to COVID-19
CPT/HCPCS: 36415; 74177; 80048; 80053; 80307; 81001; 83735; 83880; 84100; 84484; 85007; 85025; 87426; 90471; 90686; 93005; 96361; 96374; 96375; C9113; J0500; J1650; J2060; J2405; J3010; J7030; Q9967; U0003; U0005; 99285-25; G0378

== ENCOUNTER 2021-06-19 03:25 | Emergency (ER) | payer OTHER ==
[~2021-06-19] VITALS: Ht 170.2 cm; Wt 80.9 kg
[~2021-06-19 03:25] MED LIST changes: +DICY10CA3 PO
[2021-06-19 03:58] LABS: BASO % 0 % (0-3); CALCIUM 8.3 mg/dL (8.5-10.1); CREATININE 1.1 mg/dL (0.7-1.3); EOS # 0.2 x10^3/uL (0.0-0.7); EOS % 2 % (0-3); GFR 81.5; HEMATOCRIT 45.3 % (39.0-53.0); HEMOGLOBIN 15.1 g/dL (13.0-17.5); LYMPH % 10 % (24-48); MEAN CORPUSCULAR HEMOGLOBIN 32 pg (25-35); MEAN CORPUSCULAR HGB CONC 33 g/dL (31-37); MEAN CORPUSCULAR VOLUME 94 fL (79-100); MONO # 0.5 x10^3/uL (0.0-1.1); MONO % 5 % (0-9); NEUT # 8.5 x10^3/uL (1.8-7.7); NEUT % 83 % (31-73); PLATELET COUNT 194 x10^3/uL (140-400); POTASSIUM 3.6 mmol/L (3.5-5.1); RED CELL DISTRIBUTION WIDTH 13.9 % (11.5-14.5); WHITE BLOOD COUNT 10.3 x10^3/uL (4.0-11.0)
[2021-06-19] MEDS ORDERED: IV NORMAL SALINE 1000ML BAG 1,000 ML IV ONE (04:00)
[2021-06-19] MEDS ORDERED: ONDANSETRON PF 4 MG/2 ML VIAL. IVP ONE (04:00)
[2021-06-19 04:07] LABS: ALBUMIN 3.4 g/dL (3.4-5.0); TOTAL BILIRUBIN 0.2 mg/dL (0.2-1.0); TOTAL PROTEIN 6.7 g/dL (6.4-8.2)
[2021-06-19 04:11] LABS: INFLUENZA A PATIENT NEGATIVE (NEGATIVE); INFLUENZA B PATIENT NEGATIVE (NEGATIVE)
--- NOTE | 2021-06-19 04:48 | PHYS DOC ---
Past Medical History Past Medical History: Other Additional Past Medical Histor: CHRONIC PAIN, RLS Past Surgical History: Hip Replacement Additional Past Surgical Histo: BACK, HERNIA Smoking Status: Current Some Day Smoker Alcohol Use: None Drug Use: None General Adult EDM: Chief Complaint: NAUSEA/VOMITING/DIARRHEA HPI: HPI: Patient is a 66 year old male presents for evaluation nausea vomiting diarrhea. Today patient had started to have some nasal drainage just prior to arrival patient started to have vomiting and diarrhea. Patient states patient is vaccinated. He has been staying in the hospital with his son who is currently Covid positive with a past medical history of mental disorder. Review of Systems: Review of Systems: Constitutional: Denies fever or chills. [] Eyes: Denies change in visual acuity. [] HENT: No sore throat. [] Positive nasal congestion Respiratory: Denies cough or shortness of breath. [] Cardiovascular: Denies chest pain or edema. [] GI: Positive nausea positive vomiting positive diarrhea : Denies dysuria. [] Musculoskeletal: Denies back pain or joint pain. [] Integument: Denies rash. [] Neurologic: Denies headache, focal weakness or sensory changes. [] Endocrine: Denies polyuria or polydipsia. [] Lymphatic: Denies swollen glands. [] Psychiatric: Denies depression or anxiety. [] Heart Score: C/O Chest Pain: N/A Risk Factors: Risk Factors: DM, Current or recent (<one month) smoker, HTN, HLP, family history of CAD, obesity. Risk Scores: Score 0 - 3: 2.5% MACE over next 6 weeks - Discharge Home Score 4 - 6: 20.3% MACE over next 6 weeks - Admit for Clinical Observation Score 7 - 10: 72.7% MACE over next 6 weeks - Early Invasive Strategies Current Medications: Current Medications Medications (Trade) Dose Ordered Sig/Michael Start Time Stop Time Status Last Admin Dose Admin Ondansetron HCl (Zofran) 4 mg 1X ONCE 06/19/21 04:00 06/19/21 04:01 DC 06/19/21 03:46 4 MG Sodium Chloride 1,000 ml @ 1,000 mls/hr 1X ONCE 06/19/21 04:00 06/19/21 04:59 06/19/21 03:45 1,000 MLS/HR Allergies: Allergies: Allergies Coded Allergies Type Severity Reaction Last Updated Verified No Known Drug Allergies 12/02/20 No Physical Exam: PE: Constitutional: Well developed, well nourished, no acute distress, non-toxic appearance. [] HENT: Normocephalic, atraumatic, bilateral external ears normal, oropharynx moist, no oral exudates, nose normal. [] Eyes: PERRLA, EOMI, conjunctiva normal, no discharge. [] Neck: Normal range of motion, no tenderness, supple, no stridor. [] Cardiovascular:Heart rate regular rhythm, no murmur [] Lungs & Thorax: Bilateral breath sounds clear to auscultation [] Abdomen: Bowel sounds normal, soft, no tenderness, no masses, no pulsatile masses. [] Skin: Warm, dry, no erythema, no rash. [] Back: No tenderness, no CVA tenderness. [] Extremities: No tenderness, no cyanosis, no clubbing, ROM intact, no edema. [] Neurologic: Alert and oriented X 3, normal motor function, normal sensory function, no focal deficits noted. [] Psychologic: Affect normal, judgement normal, mood normal. [] Current Patient Data: Labs: Laboratory Tests Test 06/19/21 03:38 06/19/21 03:40 White Blood Count 10.3 x10^3/uL (4.0-11.0) Red Blood Count 4.80 x10^6/uL (4.30-5.70) Hemoglobin 15.1 g/dL (13.0-17.5) Hematocrit 45.3 % (39.0-53.0) Mean Corpuscular Volume 94 fL (79-100) Mean Corpuscular Hemoglobin 32 pg (25-35) Mean Corpuscular Hemoglobin Concent 33 g/dL (31-37) Red Cell Distribution Width 13.9 % (11.5-14.5) Platelet Count 194 x10^3/uL (140-400) Neutrophils (%) (Auto) 83 % (31-73) H Lymphocytes (%) (Auto) 10 % (24-48) L Monocytes (%) (Auto) 5 % (0-9) Eosinophils (%) (Auto) 2 % (0-3) Basophils (%) (Auto) 0 % (0-3) Neutrophils # (Auto) 8.5 x10^3/uL (1.8-7.7) H Lymphocytes # (Auto) 1.0 x10^3/uL (1.0-4.8) Monocytes # (Auto) 0.5 x10^3/uL (0.0-1.1) Eosinophils # (Auto) 0.2 x10^3/uL (0.0-0.7) Basophils # (Auto) 0.0 x10^3/uL (0.0-0.2) Sodium Level 142 mmol/L (136-145) Potassium Level 3.6 mmol/L (3.5-5.1) Chloride Level 105 mmol/L (98-107) Carbon Dioxide Level 31 mmol/L (21-32) Anion Gap 6 (6-14) Blood Urea Nitrogen 12 mg/dL (8-26) Creatinine 1.1 mg/dL (0.7-1.3) Estimated GFR (Cockcroft-Gault) 81.5 BUN/Creatinine Ratio 11 (6-20) Glucose Level 104 mg/dL (70-99) H Calcium Level 8.3 mg/dL (8.5-10.1) L Total Bilirubin 0.2 mg/dL (0.2-1.0) Aspartate Amino Transferase (AST) 21 U/L (15-37) Alanine Aminotransferase (ALT) 29 U/L (16-63) Alkaline Phosphatase 68 U/L (46-116) Total Protein 6.7 g/dL (6.4-8.2) Albumin 3.4 g/dL (3.4-5.0) Albumin/Globulin Ratio 1.0 (1.0-1.7) Influenza Type A Antigen Negative (NEGATIVE) Influenza Type B Antigen Negative (NEGATIVE) Laboratory Tests 06/19/21 03:38 Laboratory Tests 06/19/21 03:38 Vital Signs: Vital Signs Date Time Temp Pulse Resp B/P (MAP) Pulse Ox O2 Delivery O2 Flow Rate FiO2 06/19/21 03:38 98.1 69 18 177/86 (116) 95 Room Air 98.1 EKG: EKG: [] Radiology/Procedures: Radiology/Procedures: [] Course & Med Decision Making: Course & Med Decision Making Pertinent Labs and Imaging studies reviewed. (See chart for details) [] Patient treatment included IV fluids. CBC CMP without acute abnormalities influenza and rapid Covid negative Jorge Disclaimer: Jorge Disclaimer: This electronic medical record was generated, in whole or in part, using a voice recognition dictation system. Departure Departure Impression: Primary Impression: Acute gastroenteritis Disposition: HOME / SELF CARE / HOMELESS Condition: STABLE Referrals: Keiry TOUSSAINT MD (PCP) Patient Instructions: Viral Gastroenteritis Scripts Ondansetron Hcl (ZOFRAN) 4 Mg Tablet 1 TAB PO Q6HRS, #20 TAB Prov: XIN KELLOGG DO 06/19/21 XIN KELLOGG DO Jun 19, 2021 04:48
[2021-06-19] MEDS ORDERED: ONDA4TAB7 PO (05:27)
[2021-06-19 05:31] VITALS: BP 163/66
--- NOTE | 2021-06-19 16:11 | NUR ---
IP: Informed pt of negative covid test. Pt verbalized understanding.
== END 2021-06-19 05:50 | disposition home or self-care (01) ==
LOC: ER 03:25
DX: K52.9 Noninfective gastroenteritis and colitis, unspecified (principal); G89.29 Other chronic pain; Z20.822 Contact with and (suspected) exposure to COVID-19
CPT/HCPCS: 36415; 80053; 85025; 87426; 87804; 96361; 96374; 99285; J2405; J7030; U0003; U0005

== ENCOUNTER 2021-07-21 08:07 | Emergency (ER) | payer OTHER ==
[~2021-07-21] VITALS: Ht 170.2 cm; Wt 78.5 kg
[~2021-07-21 08:07] MED LIST changes: +ONDA4TAB7 PO
[2021-07-21 08:29] LABS: BILIRUBIN,URINE SMALL (NEG); CLARITY,URINE CLOUDY; COLOR,URINE RED; NITRITE,URINE POSITIVE (NEG); PROTEIN,URINE >=300 mg/dL (NEG-TRACE)
[2021-07-21 08:37] LABS: BACTERIA,URINE MANY /HPF (0-FEW); RBC,URINE TNTC /HPF (0-2); WBC,URINE TNTC /HPF (0-4)
[2021-07-21] MEDS ORDERED: HYDROcodone/APAP 5/325MG 1 TAB TABLET PO ONE (08:45)
[2021-07-21 09:18] LABS: CALCIUM 8.5 mg/dL (8.5-10.1); CREATININE 0.9 mg/dL (0.7-1.3); GFR 102.8; POTASSIUM 3.4 mmol/L (3.5-5.1)
[2021-07-21] MEDS ORDERED: cefTRIAXone IV Push 1 GM VIAL. IVP ONE (09:30)
--- NOTE | 2021-07-21 09:33 | RAD ---
PQRS Compliance Statement: One or more of the following individualized dose reduction techniques were utilized for this examinat ion: 1. Automated exposure control 2. Adjustment of the mA and/or kV according to patient size 3. Use of iterative reconstruction technique CT ABDOMEN+PELVIS WO Clinical Indication: Reason: left flank pain, hematuria, dysuria / Spl. Instructions: / History: Comparison: CT abdomen and pelvis with contrast August 15, 2019. Technique: Helical CT imaging of the abdomen and pelvis is performed without IV or oral contrast. Findings: Evaluation of solid organs and bowel is limited without oral and IV contrast, decreasing sensitivity for detection of pathology. There is minimal atelectasis or scarring in the lung bases. Large calcified granuloma lateral left lo wer lobe. Cardiac size normal. Liver, gallbladder, spleen, pancreas, and abdominal aorta caliber are normal. There is bilateral adre nal gland hyperplasia. The right kidney is normal. There may be minimal left hydroureteronephrosis. There is left periurete ral stranding. There is minimal left perinephric stranding, nonspecific. The distal ureters and the u rinary bladder are completely obscured due to beam hardening artifact from bilateral hip arthroplasti es. Cannot exclude a distal ureteral calculus. There is a punctate nonobstructing calculus in the upp er pole of the left kidney. The stomach is unremarkable. Small fat-containing umbilical hernia. No small bowel obstruction is sue ntified. There is descending colon diverticulosis. No colon wall thickening is identified. The append ix is normal. Cannot exclude mild pelvic free fluid. There is redemonstrated posterior fusion hardware of L3-S1. There is posterior decompression of L4-L5 . IMPRESSION: 1. There is mild left perinephric and periureteral stranding. There may be minimal left hydrouretero nephrosis. The distal ureters and urinary bladder are completely obscured due to beam hardening artif act from bilateral hip arthroplasties. Cannot exclude a distal left ureteral calculus and mild left o bstructive uropathy versus urinary tract infection/pyelonephritis. 2. Descending colon diverticulosis. Electronically signed by: Randall Keenan MD (07/21/2021 9:31 AM) [facility]
[2021-07-21] MEDS ORDERED: PHENAZOPYRIDINE 200 MG TABLET. PO ONE (10:00)
[2021-07-21] MEDS ORDERED: CEFP200T PO (11:17)
[2021-07-21] MEDS ORDERED: PHEN-443 PO (11:17)
--- NOTE | 2021-07-21 11:20 | PHYS DOC ---
Past Medical History Past Medical History: Other Additional Past Medical Histor: CHRONIC PAIN, RLS Past Surgical History: Hip Replacement Additional Past Surgical Histo: BACK, HERNIA, bilateral hip replacement Smoking Status: Current Some Day Smoker Alcohol Use: None Drug Use: None General Adult EDM: Chief Complaint: BLOOD IN URINE HPI: HPI: 66-year-old male past medical history of tobacco use, restless leg syndrome and chronic back pain, presents the ED with complaints of painful urination, blood in urine, suprapubic pain described as cramping that radiates to the left pelvic and left flank region with urinating, present for the past 2 days, stating he has never had the symptoms before. Pain is described as burning/cramping in nature and worse with urinating. Is not on any blood thinners or anticoagulants. No history of blood transfusions or kidney stones. Denies any blunt trauma. No associated urethral discharge or rash. No recent surgeries, hospitalizations or procedures (no silverman hx). Review of Systems: Review of Systems: Constitutional: Denies fever or chills. [] Eyes: Denies change in visual acuity. [] HENT: Denies nasal congestion or sore throat. [] Respiratory: Denies cough or shortness of breath. [] Cardiovascular: Denies chest pain or edema. [] GI: Denies abdominal pain, nausea, vomiting, bloody stools or diarrhea. [] : Denies urethral discharge or incontinence Musculoskeletal: Denies midline back pain or joint pain. [] Integument: Denies rash or diaphoresis Neurologic: Denies headache, focal weakness or sensory changes. [] Endocrine: Denies polyuria or polydipsia. [] Lymphatic: Denies swollen glands. [] Psychiatric: Denies depression or anxiety. [] Heart Score: C/O Chest Pain: No Risk Factors: Risk Factors: DM, Current or recent (<one month) smoker, HTN, HLP, family history of CAD, obesity. Risk Scores: Score 0 - 3: 2.5% MACE over next 6 weeks - Discharge Home Score 4 - 6: 20.3% MACE over next 6 weeks - Admit for Clinical Observation Score 7 - 10: 72.7% MACE over next 6 weeks - Early Invasive Strategies Current Medications: Current Medications Medications (Trade) Dose Ordered Sig/Michael Start Time Stop Time Status Last Admin Dose Admin Acetaminophen/ Hydrocodone Bitart (Lortab 5/325) 1 tab 1X ONCE 07/21/21 08:45 07/21/21 08:46 DC 07/21/21 08:50 1 TAB Ceftriaxone Sodium (Rocephin) 1 gm 1X ONCE 07/21/21 09:30 07/21/21 09:31 DC 07/21/21 09:50 1 GM Phenazopyridine HCl (Pyridium) 200 mg 1X ONCE 07/21/21 10:00 07/21/21 10:01 DC 07/21/21 10:05 200 MG Allergies: Allergies: Allergies Coded Allergies Type Severity Reaction Last Updated Verified No Known Drug Allergies 12/02/20 No Physical Exam: PE: Constitutional: Well developed, well nourished, no acute distress, non-toxic appearance. HENT: Normocephalic, atraumatic, Eyes: EOMI, conjunctiva normal, no discharge. Neck: Normal range of motion, supple, Cardiovascular: S1/2 present, regular rhythm Lungs & Thorax: Speaking in full sentences, bilateral equal chest rise, no tachypnea or increased work of breathing Abdomen: soft, no tenderness, reports left pelvic pain with palpation-no rigidity or guarding, Skin: Warm, dry, no erythema, no rash. [] Back: No tenderness, no CVA tenderness. [] Extremities: No tenderness, no cyanosis, no lower extremity edema Neurologic: Alert and oriented X 3, normal motor function, normal sensory func tion, no focal deficits noted. [] Psychologic: Affect normal, judgement normal, mood normal. [] Current Patient Data: Labs: Laboratory Tests Test 07/21/21 08:15 07/21/21 08:55 Urine Collection Type Void Urine Color Red Urine Clarity Cloudy Urine pH 6.0 (<5.0-8.0) Urine Specific Norman 1.020 (1.000-1.030) Urine Protein >=300 mg/dL (NEG-TRACE) Urine Glucose (UA) Negative mg/dL (NEG) Urine Ketones (Stick) Trace mg/dL (NEG) Urine Blood Large (NEG) Urine Nitrite Positive (NEG) Urine Bilirubin Small (NEG) Urine Urobilinogen Dipstick 1.0 mg/dL (0.2 mg/dL) Urine Leukocyte Esterase Large (NEG) Urine RBC Tntc /HPF (0-2) Urine WBC Tntc /HPF (0-4) Urine Squamous Epithelial Cells Few /LPF Urine Bacteria Many /HPF (0-FEW) Urine Mucus Marked /LPF Sodium Level 141 mmol/L (136-145) Potassium Level 3.4 mmol/L (3.5-5.1) L Chloride Level 106 mmol/L (98-107) Carbon Dioxide Level 28 mmol/L (21-32) Anion Gap 7 (6-14) Blood Urea Nitrogen 12 mg/dL (8-26) Creatinine 0.9 mg/dL (0.7-1.3) Estimated GFR (Cockcroft-Gault) 102.8 Glucose Level 86 mg/dL (70-99) Calcium Level 8.5 mg/dL (8.5-10.1) Laboratory Tests 07/21/21 08:55 Vital Signs: Vital Signs Date Time Temp Pulse Resp B/P (MAP) Pulse Ox O2 Delivery O2 Flow Rate FiO2 07/21/21 08:50 18 97 07/21/21 08:20 97.9 74 182/81 (114) Room Air 97.9 EKG: EKG: [] Radiology/Procedures: Radiology/Procedures: IMAGING REPORT Signed PATIENT: ROMAN ROQUE ACCOUNT: [id number] : 1955 LOCATION: ER AGE: 66 SEX: M EXAM STATUS: REG ER ORD. PHYSICIAN: TIKA LARA DO REASON: left flank pain, hematuria, dysuria PROCEDURE: CT ABDOMEN PELVIS WO CONTRAST PQRS Compliance Statement: One or more of the following individualized dose reduction techniques were utilized for this examination: 1. Automated exposure control 2. Adjustment of the mA and/or kV according to patient size 3. Use of iterative reconstruction technique CT ABDOMEN+PELVIS WO Clinical Indication: Reason: left flank pain, hematuria, dysuria / Spl. Instruc tions: / History: Comparison: CT abdomen and pelvis with contrast August 15, 2019. Technique: Helical CT imaging of the abdomen and pelvis is performed without IV or oral contrast. Findings: Evaluation of solid organs and bowel is limited without oral and IV contrast, decreasing sensitivity for detection of pathology. There is minimal atelectasis or scarring in the lung bases. Large calcified granuloma lateral left lower lobe. Cardiac size normal. Liver, gallbladder, spleen, pancreas, and abdominal aorta caliber are normal. There is bilateral adrenal gland hyperplasia. The right kidney is normal. There may be minimal left hydroureteronephrosis. There is left periureteral stranding. There is minimal left perinephric stranding, nonspecific. The distal ureters and the urinary bladder are completely obscured due to beam hardening artifact from bilateral hip arthroplasties. Cannot exclude a distal ureteral calculus. There is a punctate nonobstructing calculus in the upper pole of the left kidney. The stomach is unremarkable. Small fat-containing umbilical hernia. No small bowel obstruction is identified. There is descending colon diverticulosis. No colon wall thickening is identified. The appendix is normal. Cannot exclude mild pelvic free fluid. There is redemonstrated posterior fusion hardware of L3-S1. There is posterior decompression of L4-L5. IMPRESSION: 1. There is mild left perinephric and periureteral stranding. There may be minimal left hydroureteronephrosis. The distal ureters and urinary bladder are completely obscured due to beam hardening artifact from bilateral hip arthroplasties. Cannot exclude a distal left ureteral calculus and mild left obstructive uropathy versus urinary tract infection/pyelonephritis. 2. Descending colon diverticulosis. Electronically signed by: Randall Keenan MD (07/21/2021 9:31 AM) [facility] DICTATED and SIGNED BY: RANDALL KEENAN MD DATE: 07/21/21 [id number] 0 Course & Med Decision Making: Course & Med Decision Making Pertinent Labs and Imaging studies reviewed. (See chart for details) Concern for urinary tract infection and cystitis. CT imaging cannot fully evaluate for obstruction, possible pyelonephritis. Patient tolerating oral int linda. Patient with no fever, chills, nausea, vomiting or dehydration-clinically is not presenting with pyelonephritis. Pain improved in emergency department with [place] and Azo. Pt with no pain out of proportion, is comfortable. CT imaging viewed by myself-no aorta enlargement-aaa or dissection of low suspicion given well appearing exam. Will treat for complicated UTI. Patient with asymptomatic hypertension with no evidence of renal insufficiency. Repeat blood pressure on ED monitor shows 157/81. Will discharge home with strict ED return precautions were given for severe pain, syncope, brisk of bleeding or neurologic deficits. Encouraged urgent outpatient follow-up with PMD for repeat follow-up, urology for definitive management/further imaging. Life-threatening processes were considered but are low suspicion at this time, given history, physical exam and ED workup. Pt was educated on all prescription medications and adverse effects. All patient's questions were answered and pt was stable at time of discharge. Life/limb-threatening differential includes but is not limited to, trauma, infection, nephrolithiasis, kidney disease, malignancy, obstructive uropathy, BPH, AAA/AVF/aortic dissection, or schistosomiasis. I have spoken with the patient and/or caregivers. I explained the patient's condition, diagnoses and treatment plan based on the information available to me at this time. I have answered the patient and/or caregiver's questions and addressed any concerns. The patient and/or caregivers have a good understanding of patient's diagnosis, condition and treatment plan as can be expected at this point. Vital signs have been stable. Patient's condition is stable and appropriate for discharge from the emergency department. Patient will pursue further outpatient evaluation with primary care physician or other designated or consulting physician as outlined in the discharge instructions. The patient and/or caregivers are agreeable to this plan of care and follow-up instructions have been explained in detail. The patient and/or caregivers have received these instructions in written form and have expressed an understanding of the discharge instructions. The patient and/or caregivers are aware that any significant change of condition or worsening of symptoms should prompt immediate return to this or the closest emergency department or call to 911. Jorge Disclaimer: Jorge Disclaimer: This electronic medical record was generated, in whole or in part, using a voice recognition dictation system. Departure Departure Impression: Primary Impression: Complicated urinary tract infection Additional Impression: Cystitis Disposition: HOME / SELF CARE / HOMELESS Condition: STABLE Referrals: Keiry TOUSSAINT MD (PCP) Follow-up with your primary care physician for reevaluation and blood pressure check OR FOLLOW UP WITH FAMILY MEDICINE: [address], [address] [place] [address] Patient Instructions: Hematuria, Adult, Urinary Tract Infection Additional Instructions: FOLLOW UP WITH UROLOGY: FOR DEFINITIVE MANAGEMENT of hematuria/further evaluation and imaging if needed [facility], [address] [place] [address] [facility] [place] [place] [address] [place] [address] [facility] [place] [address] [address] [place] [address] EMERGENCY DEPARTMENT GENERAL DISCHARGE INSTRUCTIONS Thank you for coming to [facility] Emergency Department (ED) today and trusting us with you care. We trust that you had a positive experience in our Emergency Department. If you wish to speak to the department management, you may call the Director at [phone]. YOUR FOLLOW UP INSTRUCTIONS ARE FOLLOWS: 1. Do you have a private Doctor? If you do not have a private doctor, please ask for a resource list of physicians or clinics that may be able to assist you with follow up care. 2. The Emergency Physicain has interpreted your x-rays. The X-Ray specialist will also review them. If there is a change in the findings, you will be notified in 48 hours when at all possible. 3. A lab test or culture has been done, your results will be reviewed and you will be notified if you need a change in treatment. ADDITIONAL INSTRUCTIONS AND INFORMATION: 1. Your care today has been supervised by a physician who is specially trained in emergency care. Many problems require more than one evaluation for a complete diagnosis and treatment. We recommend that you schedule your follow up appointment as recommended to ensure complete treatment of you illness or injury. If you are unable to obtain follow up care and continue to have a problem, or if your condition worsens, we recommend that you return to the ED. 2. We are not able to safely determine your condition over the phone nor are we able to give sound medical advice over the phone. For these safety reasons, if you call for medical advice we will ask you to come to the ED for further evaluation. 3. If you have any questions regarding these discharge instructions please call the ED at [phone]. SAFETY INFORMATION: In the interest of safety, wellness, and injury prevention; we encourage you to wear your sealbelt, if you smoke; quite smoking, and we encourage family to use a prote ctive helmet for bicycling and other sporting events that present an increased risk for head injury. IF YOUR SYMPTOMS WORSEN OR NEW SYMPTOMS DEVELOP, OR YOU HAVE CONCERNS ABOUT YOUR CONDITION; OR IF YOUR CONDITION WORSENS WHILE YOU ARE WAITING FOR YOUR FOLLOW UP APPOINTMENT; EITHER CONTACT YOUR PRIMARY CARE DOCTOR, THE PHYSICIAN WHOSE NAME AND NUMBER YOU WERE GIVEN, OR RETURN TO THE ED IMMEDIATELY. Scripts Phenazopyridine Hcl (PHENAZOPYRIDINE HCL) 100 Mg Tablet 1 TAB PO TID for urinary discomfort for 3 Days, #9 TAB 0 Refills Prov: TIKA LARA DO 07/21/21 Cefpodoxime Proxetil (CEFPODOXIME PROXETIL) 200 Mg Tablet 1 TAB PO BID for 14 Days, #28 TAB Prov: TIKA LARA DO 07/21/21 TIKA LARA DO Jul 21, 2021 11:20
[2021-07-21 11:33] VITALS: BP 160/70
== END 2021-07-21 11:40 | disposition home or self-care (01) ==
LOC: ER 08:07
DX: N30.90 Cystitis, unspecified without hematuria (principal); G89.29 Other chronic pain; G25.81 Restless legs syndrome; F17.200 Nicotine dependence, unspecified, uncomplicated
CPT/HCPCS: 36415; 74176; 80048; 81001; 87077; 87086; 87186; 96374; 99285; J0696

== ENCOUNTER 2021-08-29 08:57 | Emergency (ER) | payer OTHER ==
[~2021-08-29] VITALS: Ht 170.2 cm; Wt 80.9 kg
[~2021-08-29 08:57] MED LIST changes: +CEFP200T PO; +PHEN-443 PO
--- NOTE | 2021-08-29 09:09 | PHYS DOC ---
Past Medical History Past Medical History: Other Additional Past Medical Histor: CHRONIC PAIN, RLS Past Surgical History: Hip Replacement Additional Past Surgical Histo: BACK, HERNIA, bilateral hip replacement Smoking Status: Current Some Day Smoker Alcohol Use: None Drug Use: None General Adult EDM: Chief Complaint: BLOOD IN URINE HPI: HPI: Patient is a 66 year old male who presents with pelvic/suprapubic abdominal pain, gross hematuria, dysuria, urinary urgency. He reports that symptoms began yesterday but worsened this morning. He was seen here in June and was diagnosed with a urinary tract infection. CT imaging revealed possibility of pyelonephritis. His urine culture was reviewed by me today, he had pascal sensitivity to all antibiotics, and he grew E. coli. He reports that after he took the full course of antibiotics, he felt much better. He was prescribed a 14-day course. He followed up subsequently with his primary care doctor after this as well. He denies vomiting but reports mild nausea. He denies constipation or diarrhea. He denies bleeding from other sources or sites. He is not taking any anticoagulant medications. He denies any pelvic or abdominal trauma. He denies genital, scrotal or testicle trauma or injury. He is able to pass urine, and he feels he is fully evacuating his bladder. His knowledge he has no history of prostate problems. Review of Systems: Review of Systems: Constitutional: Denies fever or chills. [] Respiratory: Denies cough or shortness of breath. [] Cardiovascular: Denies chest pain or edema. [] GI: Pelvics and suprapubic abdominal pain. Nausea, no vomiting. No diarrhea or constipation. No reported hematochezia or melena. : Scrotal pain, urethral pain, dysuria, gross hematuria, urinary urgency and frequency Musculoskeletal: Denies back pain or joint pain. [] Integument: Denies rash. No genital lesions reported. Neurologic: Denies headache, focal weakness or sensory changes. [] Psychiatric: Anxiety as it pertains to current clinical condition. Heart Score: C/O Chest Pain: No Risk Factors: Risk Factors: DM, Current or recent (<one month) smoker, HTN, HLP, family h istory of CAD, obesity. Risk Scores: Score 0 - 3: 2.5% MACE over next 6 weeks - Discharge Home Score 4 - 6: 20.3% MACE over next 6 weeks - Admit for Clinical Observation Score 7 - 10: 72.7% MACE over next 6 weeks - Early Invasive Strategies Allergies: Allergies: Allergies Coded Allergies Type Severity Reaction Last Updated Verified No Known Drug Allergies 12/02/20 No Physical Exam: PE: Constitutional: Well developed, well nourished, no acute distress, non-toxic appearance. [] HENT: Normocephalic, atraumatic Eyes: Conjunctiva normal, no discharge. [] Neck: Normal range of motion, no tenderness, supple, no stridor. [] Cardiovascular:Heart rate regular rhythm, +2 radial and +2 posterior tibial pulses bilaterally. No peripheral edema. No cyanosis. Lungs & Thorax: Bilateral breath sounds clear to auscultation [] Abdomen: Abdomen is soft, nondistended, suprapubic tenderness to palpation, bilateral lower quadrant tenderness to palpation. Voluntary guarding noted. No rebound tenderness. No palpable pulsatile mass. No audible bruit. Normal bowel sounds noted. No CVA tenderness. No flank or abdominal ecchymoses are noted. No palpable organomegaly. No fluid wave or ascites noted. No evidence of abdominal trauma noted. : Testes are descended, bilateral scrotal tenderness, no edema, no erythema, no open wounds, no crepitus or subcutaneous emphysema, no evidence of perineal, scrotal skin cellulitis, warmth or erythema noted. Penile urethral meatus is patent. No significant blood at the meatus, though there is residual blood from most recent passed urine near the glans. No ulcers, no vesicles no abnormal skin lesions of the genital area. Skin: Warm, dry, no erythema, no rash. [] Back: No tenderness, no CVA tenderness. [] Extremities: No tenderness, no cyanosis, no clubbing, ROM intact, no edema. No calf tenderness Neurologic: Alert and oriented X 3, normal motor function, normal sensory function, no focal deficits noted. [] Psychologic: Anxious, overall cooperative. EKG: EKG: [] Radiology/Procedures: Radiology/Procedures: IMAGING REPORT Signed PATIENT: ROMAN ROQUE ACCOUNT: [id number] : 1955 LOCATION: ER AGE: 66 SEX: M EXAM STATUS: REG ER ORD. PHYSICIAN: HAN NAPOLES DO REASON: recurrent UTI, abdominal/pelvic pain PROCEDURE: CT ABD PELV W/ IV CONTRST ONLY CT abdomen pelvis HISTORY: Recurrent UTI, abdominal pelvic pain CT abdomen pelvis was done using 75 mL Isovue-370 contrast. Comparison is made with a study from July 21, 2021. There is a trace of pleural effusion on each side with mild atelectasis in the lung bases. A liver lesion is not identified. Spleen is unremarkable. Adrenal glands are normal. Pancreatic lesion is not identified. Pancreatic duct upper normal in size. There is no mass or hydronephrosis in the kidneys. There are small bilateral renal cysts. There is no bowel obstruction. Appendix is normal. There are artifacts off the hip prost hesis on each side. There is mild diverticulosis without diverticulitis. Bladder is mainly obscured by the artifacts. Patient's had previous lower lumbar laminectomy and fusion. IMPRESSION: 1. Trace of pleural effusion on each side with mild atelectasis in the lung bases. 2. No bowel obstruction. 3. Normal appendix. 4. Bladder mainly obscured by artifact. 5. No other acute finding noted. PQRS Compliance Statement: One or more of the following individualized dose reduction techniques were utilized for this examination: 1. Automated exposure control 2. Adjustment of the mA and/or kV according to patient size 3. Use of iterative reconstruction technique Electronically signed by: Haseeb Briggs MD (08/29/2021 11:38 AM) [id number] DICTATED and SIGNED BY: HASEEB BRIGGS MD DATE: 08/29/21 [id number] 0 Course & Med Decision Making: Course & Med Decision Making Pertinent Labs and Imaging studies reviewed. (See chart for details) The patient is given IV fluids, IV morphine, IV Dilaudid, IV Zofran as well as a dose of IV Rocephin. The patient is resting comfortably. He has a benign, nonsurgical abdominal exam. He is nontoxic, afebrile, manifest no evidence of significant distress. He reports feeling much better. I reviewed his previous records, previous cultures. He will be discharged on a cephalosporin, as needed analgesia for dysuria, as needed pain medication and antiemetics. I have given him information for outpatient urology follow-up, and I recommend he contact his PCP this week to arrange for close follow-up as well. He may very well require outpatient cystoscopy to ensure absence of any underlying pathology such as bladder malignancy. Strict return precautions are given. He verbalizes understanding. Jorge Disclaimer: Jorge Disclaimer: This electronic medical record was generated, in whole or in part, using a voice recognition dictation system. Departure Departure Impression: Primary Impression: Urinary tract infection Qualified Codes: N30.01 - Acute cystitis with hematuria Additional Impression: Gross hematuria Disposition: HOME / SELF CARE / HOMELESS Condition: STABLE Referrals: Keiry TOUSSAINT MD (PCP) YOLANDE VOGEL MD Patient Instructions: Hematuria, Adult, Urinary Tract Infection Additional Instructions: Please take the full course of antibiotics. Use the pain medicine as needed/as directed. Make sure you stay hydrated, drink plenty of fluids. Return to the ER for more severe pain, temperature 100.4 or higher, uncontrolled vomiting, dehydration or for any other concerns. You do appear to have a urinary tract infection which appears to be most consistent with an bladder infection. Please make sure you follow-up with not only her primary care doctor but also with outpatient urology, as you may require cystoscopy or a scope to look more directly at your bladder to make sure there is not more significant problems, such as possible bladder cancer or prostate problems. Contact your doctor and urology this week to arrange for outpatient follow-up. Scripts Cefpodoxime Proxetil (CEFPODOXIME PROXETIL) 200 Mg Tablet 1 TAB PO BID for 14 Days, #28 TAB Prov: HAN NAPOLES DO 08/29/21 Phenazopyridine Hcl (PYRIDIUM) 200 Mg Tablet 1 TAB PO TID for urinary discomfort for 3 Days, #9 TAB 0 Refills take with food Prov: HAN NAPOLES DO 08/29/21 Ondansetron Hcl (ONDANSETRON HCL) 4 Mg Tablet 1 TAB PO PRN Q6HRS for vomiting, #20 TAB 1 Refill Prov: HAN NAPOLES DO 08/29/21 Hydrocodone Bit/Acetaminophen (HYDROCODONE-APAP 5-325 ) 1 Tab Tablet 1 TAB PO PRN Q6HRS PRN for PAIN, #20 TAB 0 Refills Prov: HAN NAPOLES DO 08/29/21 HAN NAPOLES DO Aug 29, 2021 09:09
[2021-08-29] MEDS ORDERED: MORPHINE SULFATE 4 MG/ML INJ. IVP ONE (09:30)
[2021-08-29] MEDS ORDERED: IV NORMAL SALINE 1000ML BAG 1,000 ML IV ONE (09:30)
[2021-08-29] MEDS ORDERED: ONDANSETRON PF 4 MG/2 ML VIAL. IVP ONE (09:30)
[2021-08-29 10:13] LABS: BASO % 0 % (0-3); EOS # 0.1 x10^3/uL (0.0-0.7); EOS % 1 % (0-3); HEMATOCRIT 44.2 % (39.0-53.0); HEMOGLOBIN 15.2 g/dL (13.0-17.5); LYMPH # 0.7 x10^3/uL (1.0-4.8); LYMPH % 7 % (24-48); MEAN CORPUSCULAR HEMOGLOBIN 31 pg (25-35); MEAN CORPUSCULAR HGB CONC 34 g/dL (31-37); MEAN CORPUSCULAR VOLUME 92 fL (79-100); MONO # 0.6 x10^3/uL (0.0-1.1); MONO % 6 % (0-9); NEUT % 86 % (31-73); PLATELET COUNT 287 x10^3/uL (140-400); RED BLOOD COUNT 4.83 x10^6/uL (4.30-5.70); RED CELL DISTRIBUTION WIDTH 13.3 % (11.5-14.5); WHITE BLOOD COUNT 10.4 x10^3/uL (4.0-11.0)
[2021-08-29 10:16] LABS: BILIRUBIN,URINE SMALL (NEG); CLARITY,URINE CLOUDY; COLOR,URINE RED; NITRITE,URINE NEGATIVE (NEG); PROTEIN,URINE 100 mg/dL (NEG-TRACE)
[2021-08-29 10:25] LABS: CALCIUM 8.6 mg/dL (8.5-10.1); POTASSIUM 3.6 mmol/L (3.5-5.1)
[2021-08-29 10:27] LABS: BACTERIA,URINE MANY /HPF (0-FEW); RBC,URINE TNTC /HPF (0-2); WBC,URINE TNTC /HPF (0-4)
[2021-08-29 10:31] LABS: ALBUMIN 3.5 g/dL (3.4-5.0); ALBUMIN/GLOBULIN RATIO 0.7 (1.0-1.7); TOTAL BILIRUBIN 0.6 mg/dL (0.2-1.0); TOTAL PROTEIN 8.4 g/dL (6.4-8.2)
[2021-08-29] MEDS ORDERED: cefTRIAXone IV Push 1 GM VIAL. IVP ONE (10:45)
[2021-08-29] MEDS ORDERED: HYDROmorphone 2 MG/ML INJ. IVP ONE (10:45)
[2021-08-29] MEDS ORDERED: IOHEXOL 300 MG/ML 100ML VIAL. IV ONE (11:00)
[2021-08-29] MEDS ORDERED: CONTRAST GIVEN. MC PRN (11:00)
--- NOTE | 2021-08-29 11:41 | RAD ---
CT abdomen pelvis HISTORY: Recurrent UTI, abdominal pelvic pain CT abdomen pelvis was done using 75 mL Isovue-370 contrast. Comparison is made with a study from [facility] 2020. There is a trace of pleural effusion on each side with mild atelectasis in the lung ba ses. A liver lesion is not identified. Spleen is unremarkable. Adrenal glands are normal. Pancreatic lesion is not identified. Pancreatic duct upper normal in size. There is no mass or hydronephrosis in the kidneys. There are small bilateral renal cysts. There is no bowel obstruction. Appendix is pauline l. There are artifacts off the hip prosthesis on each side. There is mild diverticulosis without dive rticulitis. Bladder is mainly obscured by the artifacts. Patient's had previous lower lumbar laminect mirella and fusion. IMPRESSION: 1. Trace of pleural effusion on each side with mild atelectasis in the lung bases. 2. No bowel obstruction. 3. Normal appendix. 4. Bladder mainly obscured by artifact. 5. No other acute finding noted. PQRS Compliance Statement: One or more of the following individualized dose reduction techniques were utilized for this examinat ion: 1. Automated exposure control 2. Adjustment of the mA and/or kV according to patient size 3. Use of iterative reconstruction technique Electronically signed by: Haseeb Briggs MD (08/29/2021 11:38 AM) [id number]
[2021-08-29] MEDS ORDERED: PHEN-318 PO (13:33)
[2021-08-29] MEDS ORDERED: CEFP200T PO (13:33)
[2021-08-29] MEDS ORDERED: ONDA-84 PO (13:33)
[2021-08-29] MEDS ORDERED: HYDR-2761 PO (13:33)
[2021-08-29 14:05] VITALS: BP 142/61
== END 2021-08-29 14:50 | disposition home or self-care (01) ==
LOC: ER 08:57
DX: N30.01 Acute cystitis with hematuria (principal); G89.29 Other chronic pain; G25.81 Restless legs syndrome; F17.200 Nicotine dependence, unspecified, uncomplicated; Z98.890 Other specified postprocedural states
CPT/HCPCS: 36415; 74177; 80053; 81001; 83605; 83690; 85025; 87040; 87077; 87086; 87186; 96361; 96374; 96375; 99285; J0696; J1170; J2270; J2405; J7030; Q9967

== ENCOUNTER 2021-08-31 16:20 | Emergency (ER) | payer OTHER ==
[~2021-08-31] VITALS: Ht 170.2 cm; Wt 80.9 kg
[~2021-08-31 16:20] MED LIST changes: +ONDA-84 PO; +PHEN-318 PO
[2021-08-31 16:45] LABS: CLARITY,URINE CLOUDY; COLOR,URINE ORANGE
[2021-08-31] MEDS ORDERED: oxyCODONE IR 5 MG TABLET PO ONE (16:45)
[2021-08-31 16:55] LABS: BACTERIA,URINE FEW /HPF (0-FEW); RBC,URINE >40 /HPF (0-2); WBC,URINE >40 /HPF (0-4)
--- NOTE | 2021-08-31 16:56 | PHYS DOC ---
Past Medical History Past Medical History: Other Additional Past Medical Histor: CHRONIC PAIN, RLS Past Surgical History: Hip Replacement Additional Past Surgical Histo: BACK, HERNIA, bilateral hip replacement Smoking Status: Current Some Day Smoker Alcohol Use: None Drug Use: None General Adult EDM: Chief Complaint: MALE UROGENITAL PROBLEMS HPI: HPI: Patient is a 66 year old male with history of recent ED visit on 08/29 diagnosed with urinary tract infection started on Cefpodoxime who presents with left-sided testicular pain. Symptoms on 08/29 included dysuria, urgency, hematuria, and suprapubic discomfort. States that his left testicle has become increasingly more uncomfortable since. Denies fever/chills. Urine has been bloody to orange in appearance, but has been taking pyridium. Urine culture on 08/29 showed pansensitive E. coli. Review of Systems: Review of Systems: Constitutional: Denies fever or chills. [] Eyes: Denies change in visual acuity. [] HENT: Denies nasal congestion or sore throat. [] Respiratory: Denies cough or shortness of breath. [] Cardiovascular: Denies chest pain or edema. [] GI: Denies abdominal pain, nausea, vomiting, bloody stools or diarrhea. [] : Reports dysuria, hematuria, left testicular pain. Musculoskeletal: Denies back pain or joint pain. [] Integument: Denies rash. [] Neurologic: Denies headache, focal weakness or sensory changes. [] Psychiatric: Denies depression or anxiety. [] Heart Score: C/O Chest Pain: No Current Medications: Current Medications Medications (Trade) Dose Ordered Sig/[facility] Start Time Stop Time Status Last Admin Dose Admin Oxycodone HCl (Roxicodone) 5 mg 1X ONCE 08/31/21 16:45 08/31/21 16:46 DC 08/31/21 16:48 5 MG Allergies: Allergies: Allergies Coded Allergies Type Severity Reaction Last Updated Verified No Known Drug Allergies 12/02/20 No Physical Exam: PE: Constitutional: Well developed, well nourished, no acute distress, non-toxic appearance. [] HENT: Normocephalic, atraumatic, bilateral external ears normal, oropharynx moist, no oral exudates, nose normal. [] Eyes: PERRLA, EOMI, conjunctiva normal, no discharge. [] Neck: Normal range of motion, no tenderness, supple, no stridor. [] Cardiovascular:Heart rate regular rhythm, no murmur [] Lungs & Thorax: Bilateral breath sounds clear to auscultation [] Abdomen: Bowel sounds normal, soft, no tenderness, no masses, no pulsatile masses. [] : Left testicle is firm and tender throughout with evidence of left epididymal tenderness as well. No R sided testicular tenderness. Extremities: No tenderness, no cyanosis, no clubbing, ROM intact, no edema. [] Neurologic: Alert and oriented X 3, normal motor function, normal sensory function, no focal deficits noted. [] Psychologic: Affect normal, judgement normal, mood normal. [] Current Patient Data: Labs: Laboratory Tests Test 08/31/21 16:35 08/31/21 16:53 Urine Collection Type Unknown Urine Color [place] Urine Clarity Cloudy Urine pH Urine Specific [place] Urine Protein mg/dL Urine Glucose (UA) mg/dL Urine Ketones (Stick) mg/dL Urine Blood Urine Nitrite Urine Bilirubin Urine Urobilinogen Dipstick mg/dL Urine Leukocyte Esterase Urine RBC >40 /HPF Urine WBC >40 /HPF Urine Bacteria Few /HPF Urine Mucus Mod /LPF White Blood Count 11.2 x10^3/uL Red Blood Count 4.31 x10^6/uL Hemoglobin 12.9 g/dL Hematocrit 39.5 % Mean Corpuscular Volume 92 fL Mean Corpuscular Hemoglobin 30 pg Mean Corpuscular Hemoglobin Concent 33 g/dL Red Cell Distribution Width 13.3 % Platelet Count 293 x10^3/uL Neutrophils (%) (Auto) 80 % Lymphocytes (%) (Auto) 11 % Monocytes (%) (Auto) 7 % Eosinophils (%) (Auto) 2 % Basophils (%) (Auto) 0 % Neutrophils # (Auto) 9.0 x10^3/uL Lymphocytes # (Auto) 1.2 x10^3/uL Monocytes # (Auto) 0.8 x10^3/uL Eosinophils # (Auto) 0.2 x10^3/uL Basophils # (Auto) 0.0 x10^3/uL Sodium Level 140 mmol/L Potassium Level 3.1 mmol/L Chloride Level 105 mmol/L Carbon Dioxide Level 28 mmol/L Anion Gap 7 Blood Urea Nitrogen 9 mg/dL Creatinine 0.8 mg/dL Estimated GFR (Cockcroft-Gault) 117.8 Glucose Level 108 mg/dL Calcium Level 7.9 mg/dL Current Medications Medications (Trade) Dose Ordered Sig/Michael Route PRN Reason Start Time Stop Time Status Last Admin Dose Admin Oxycodone HCl (Roxicodone) 5 mg 1X ONCE PO 08/31/21 16:45 08/31/21 16:46 DC 08/31/21 16:48 Vital Signs: v Vital Signs Date Time Temp Pulse Resp B/P (MAP) Pulse Ox O2 Delivery O2 Flow Rate FiO2 08/31/21 16:30 98.4 59 16 167/77 (107) 97 Room Air 98.4 Vital Signs Date Time Temp Pulse Resp B/P (MAP) Pulse Ox O2 Delivery O2 Flow Rate FiO2 08/31/21 16:48 16 Room Air 08/31/21 16:30 98.4 59 167/77 (107) 97 98.4 EKG: EKG: [] Radiology/Procedures: Radiology/Procedures: [] Impression: [facility] [address] [place], [place] [id number] IMAGING REPORT Signed PATIENT: ROMAN ROQUE ACCOUNT: [id number] : 1955 LOCATION: ER AGE: 66 SEX: M EXAM STATUS: REG ER ORD. PHYSICIAN: POOJA BARGER MD REASON: L testicular pain, swelling PROCEDURE: TESTICULAR/SCROTUM CLINICAL HISTORY: Reason: L testicular pain, swelling / Spl. Instructions: / History: COMPARISON: CT 08/29/2021 TECHNIQUE: Ultrasound images of the scrotum was performed with lamas-scale and color doppler. FINDINGS: Right testicle measures 3.7 x 3.1 x 2.0 cm. Left testicle measures 3.2 x 2.9 x 2.1 cm. There is no intratesticular abnormality. Mild increased vascularity in the left testicle. Enlargement of the left epididymis which has increased vascularity. There is no hydrocele or varicocele. IMPRESSION: Findings of left epididymoorchitis Electronically signed by: Miko Peres MD (08/31/2021 6:05 PM) [facility] DICTATED and SIGNED BY: MIKO PERES MD DATE: 08/31/21 [id number] 0 Course & Med Decision Making: Course & Med Decision Making Pertinent Labs and Imaging studies reviewed. (See chart for details) Patient is 66-year-old male seen on 08/29 and diagnosed with a pansensitive E. coli urinary tract infection and discharged on Cefpodoxime who presents with increasing left testicular discomfort. Concern for orchititis/epidymitis, scrotal US ordered. No e/o of skin changes to suggest fourniers/nec fasc. Scrotal US shows signs of epididymoorchitis without abscess. Antibiotics will be changed to levofloxacin. Provided with urology follow-up. Dragon Disclaimer: 1spire Disclaimer: This electronic medical record was generated, in whole or in part, using a voice recognition dictation system. Departure Departure Impression: Primary Impression: UTI (urinary tract infection) Additional Impressions: Left testicular pain Epididymo-orchitis Disposition: HOME / SELF CARE / HOMELESS Condition: STABLE Referrals: Keiry TOUSSAINT MD (PCP) MYLES HOOD DO Schedule an appointment with the urologist for follow-up. Patient Instructions: Epididymitis, Orchitis Additional Instructions: Please switch antibiotics to levofloxacin 750 mg daily for 14 days. Do not continue to take your cefpodoxime. I am concerned that the infection has moved to around your testicle. Please call the number previously provided for urology follow-up. You can see this number again is attached for Dr. Hood. You develop high fevers,, or other new/concerning symptoms please return to the emergency department for reevaluation. Scripts Levofloxacin (LEVOFLOXACIN) 750 Mg Tablet 1 TAB PO DAILY, #14 TAB 0 Refills Prov: POOJA BARGER MD 08/31/21 POOJA BARGER MD Aug 31, 2021 16:56
[2021-08-31 17:00] LABS: BASO % 0 % (0-3); EOS # 0.2 x10^3/uL (0.0-0.7); EOS % 2 % (0-3); HEMATOCRIT 39.5 % (39.0-53.0); HEMOGLOBIN 12.9 g/dL (13.0-17.5); LYMPH # 1.2 x10^3/uL (1.0-4.8); LYMPH % 11 % (24-48); MEAN CORPUSCULAR HEMOGLOBIN 30 pg (25-35); MEAN CORPUSCULAR HGB CONC 33 g/dL (31-37); MEAN CORPUSCULAR VOLUME 92 fL (79-100); MONO # 0.8 x10^3/uL (0.0-1.1); MONO % 7 % (0-9); NEUT % 80 % (31-73); PLATELET COUNT 293 x10^3/uL (140-400); RED BLOOD COUNT 4.31 x10^6/uL (4.30-5.70); RED CELL DISTRIBUTION WIDTH 13.3 % (11.5-14.5); WHITE BLOOD COUNT 11.2 x10^3/uL (4.0-11.0)
[2021-08-31 17:19] LABS: CALCIUM 7.9 mg/dL (8.5-10.1); CREATININE 0.8 mg/dL (0.7-1.3); GFR 117.8; POTASSIUM 3.1 mmol/L (3.5-5.1)
[2021-08-31] MEDS ORDERED: POTASSIUM CHLORIDE 20 MEQ TABLET.ER. PO ONE (17:30)
[2021-08-31 18:05] VITALS: BP 149/70
[2021-08-31] MEDS ORDERED: LEVO750T5 PO (18:07)
--- NOTE | 2021-08-31 18:08 | RAD ---
CLINICAL HISTORY: Reason: L testicular pain, swelling / Spl. Instructions: / History: COMPARISON: CT 08/29/2021 TECHNIQUE: Ultrasound images of the scrotum was performed with lamas-scale and color doppler. FINDINGS: Right testicle measures 3.7 x 3.1 x 2.0 cm. Left testicle measures 3.2 x 2.9 x 2.1 cm. There is no intratesticular abnormality. Mild increased vascularity in the left testicle. Enlargement of the left epididymis which has increased vascularity. There is no hydrocele or varicocele. IMPRESSION: Findings of left epididymoorchitis Electronically signed by: Miko Guerra MD (08/31/2021 6:05 PM) [facility]
== END 2021-08-31 18:12 | disposition home or self-care (01) ==
LOC: ER 16:20
DX: N39.0 Urinary tract infection, site not specified (principal); N45.3 Epididymo-orchitis; G89.29 Other chronic pain; F17.200 Nicotine dependence, unspecified, uncomplicated; Z96.643 Presence of artificial hip joint, bilateral
CPT/HCPCS: 36415; 76870; 80048; 81001; 85025; 99284-25

== ENCOUNTER 2021-12-23 03:53 | Emergency (ER) | payer OTHER ==
[~2021-12-23] VITALS: Ht 182.9 cm; Wt 79.5 kg
[~2021-12-23 03:53] MED LIST changes: +LEVO750T5 PO
[2021-12-23] MEDS ORDERED: ASPIRIN CHEWABLE 81 MG TABLET. PO ONE (04:15)
[2021-12-23] MEDS ORDERED: NITROGLYCERIN OINT 1 GM PACKET. TP ONE (04:15)
[2021-12-23 04:29] LABS: BASO # 0.1 x10^3/uL (0.0-0.2); BASO % 1 % (0-3); EOS # 0.2 x10^3/uL (0.0-0.7); EOS % 3 % (0-3); HEMATOCRIT 43.9 % (39.0-53.0); HEMOGLOBIN 14.9 g/dL (13.0-17.5); LYMPH % 12 % (24-48); MEAN CORPUSCULAR HEMOGLOBIN 32 pg (25-35); MEAN CORPUSCULAR HGB CONC 34 g/dL (31-37); MEAN CORPUSCULAR VOLUME 93 fL (79-100); MONO # 0.6 x10^3/uL (0.0-1.1); MONO % 8 % (0-9); NEUT # 6.3 x10^3/uL (1.8-7.7); NEUT % 77 % (31-73); PLATELET COUNT 177 x10^3/uL (140-400); RED BLOOD COUNT 4.73 x10^6/uL (4.30-5.70); RED CELL DISTRIBUTION WIDTH 14.4 % (11.5-14.5); WHITE BLOOD COUNT 8.2 x10^3/uL (4.0-11.0)
[2021-12-23 04:40] LABS: CALCIUM 8.6 mg/dL (8.5-10.1); POTASSIUM 3.4 mmol/L (3.5-5.1)
[2021-12-23 04:45] LABS: ALBUMIN 3.5 g/dL (3.4-5.0); TOTAL BILIRUBIN 0.6 mg/dL (0.2-1.0); TOTAL PROTEIN 6.9 g/dL (6.4-8.2)
--- NOTE | 2021-12-23 04:58 | RAD ---
XR CHEST 1V Clinical History: Reason: chest pain / Spl. Instructions: / History: Technique: AP view of the chest was obtained at 12/23/2021 4:19 AM. Comparison: December 02, 2020. Findings: The cardiomediastinal silhouette is normal. The pulmonary vasculature is normal. The lungs and pleura l margins are clear. Impression: No evidence of an acute cardiopulmonary process. Electronically signed by: Blas Denny III, MD (12/23/2021 4:55 AM) [facility]
--- NOTE | 2021-12-23 05:43 | RAD ---
Abdominal and Pelvis CT, Without Contrast: History: Reason: LLQ abd pain / Spl. Instructions: / History: Comparison: August 29, 2021. Procedure: Axial images are obtained of the abdomen and pelvis, without IV or oral contrast. Oral Contrast: No Findings: Evaluation of solid organs is limited without contrast. The low pelvis is not well-seen due to beam hardening artifact from prior bilateral total hip arthrop lasty. There is a trace of free fluid in the pelvis. There is left-sided colonic diverticulosis and t here is moderate pericolonic inflammation involving the proximal descending colon. The appendix is normal. The gallbladder is collapsed and not well evaluated but appears normal. There is beam hardening artifact due to bilateral pedicle screws and posterior fusion rods for fusion laminectomy of L3-S1. Liver: Normal. Spleen: Normal. Pancreas: Normal. Adrenal Glands: Normal. Kidneys: Normal. There is no free air. There is no lymphadenopathy. The urinary bladder appears normal. There is no pericolonic inflammation identified. Impression: 1. Diverticulitis involving the proximal descending colon. 2. Trace of free fluid in the pelvis. End impression PQRS Compliance Statement: One or more of the following individualized dose reduction techniques were utilized for this examinat ion: 1. Automated exposure control 2. Adjustment of the mA and/or kV according to patient size 3. Use of iterative reconstruction technique Electronically signed by: Blas Denny III, MD (12/23/2021 5:40 AM) [facility]
[2021-12-23] MEDS ORDERED: MORPHINE SULFATE 2 MG/ML INJ. IVP ONE (05:45)
[2021-12-23] MEDS ORDERED: AMOXICILLIN/K CLAV 875/125MG TABLET. PO ONE (06:30)
[2021-12-23] MEDS ORDERED: AMOX1TAB61 PO (06:34)
--- NOTE | 2021-12-23 06:35 | PHYS DOC ---
Past Medical History Past Medical History: Other Additional Past Medical Histor: CHRONIC PAIN, RLS Past Surgical History: Other Additional Past Surgical Histo: HERNIA Smoking Status: Current Every Day Smoker Alcohol Use: Occasionally Drug Use: None General Adult EDM: Chief Complaint: CHEST PAIN HPI: HPI: Patient is a 66 year old male presents with left-sided lower abdominal pain. Also states that he began having some chest pain when this pain began. Chest pain is sharp in nature without any radiation. Denies any history of CAD. History of diverticulitis but states that this feels a lot worse than the last time he had it. No fever or chills. No vomiting or diarrhea. No melena or hematochezia. No UTI symptoms. No radiation of the pain to the back. Review of Systems: Review of Systems: Constitutional: Denies fever or chills. [] Eyes: Denies change in visual acuity. [] HENT: Denies nasal congestion or sore throat. [] Respiratory: Denies cough or shortness of breath. [] Cardiovascular: Positive for chest pain GI: Positive for abdominal pain : Denies dysuria. [] Musculoskeletal: Denies back pain or joint pain. [] Integument: Denies rash. [] Neurologic: Denies headache, focal weakness or sensory changes. [] Endocrine: Denies polyuria or polydipsia. [] Lymphatic: Denies swollen glands. [] Psychiatric: Denies depression or anxiety. [] Heart Score: C/O Chest Pain: Yes HEART Score for Chest Pain: HEART Score for Chest Pain Response (Comments) Value History Slighlty/Non-Suspicious 0 ECG Normal 0 Age >45 - < 65 1 Risk Factors 1 or 2 Risk Factors 1 Troponin < Normal Limit 0 Total 2 Risk Factors: Risk Factors: DM, Current or recent (<one month) smoker, HTN, HLP, family history of CAD, obesity. Risk Scores: Score 0 - 3: 2.5% MACE over next 6 weeks - Discharge Home Score 4 - 6: 20.3% MACE over next 6 weeks - Admit for Clinical Observation Score 7 - 10: 72.7% MACE over next 6 weeks - Early Invasive Strategies Current Medications: Current Medications Medications (Trade) Dose Ordered Sig/Michael Start Time Stop Time Status Last Admin Dose Admin Amoxicillin/ Clavulanate Potassium (Augmentin 875/ 125mg) 1 tab 1X ONCE 12/23/21 06:30 12/23/21 06:31 Aspirin (Aspirin Chewable) 324 mg 1X ONCE 12/23/21 04:15 12/23/21 04:19 DC 12/23/21 04:52 324 MG Morphine Sulfate (Morphine Sulfate) 2 mg 1X ONCE 12/23/21 05:45 12/23/21 05:50 DC 12/23/21 05:52 2 MG Nitroglycerin (Nitro-Bid Oint) 1 inch 1X ONCE 12/23/21 04:15 12/23/21 04:19 DC 12/23/21 04:53 1 INCH Allergies: Allergies: Allergies Coded Allergies Type Severity Reaction Last Updated Verified No Known Drug Allergies 08/31/21 No Physical Exam: PE: Constitutional: Well developed, well nourished, no acute distress, non-toxic appearance. [] HENT: Normocephalic, atraumatic, bilateral external ears normal, oropharynx moist, no oral exudates, nose normal. [] Eyes: PERRLA, EOMI, conjunctiva normal, no discharge. [] Neck: Normal range of motion, no tenderness, supple, no stridor. [] Cardiovascular:Heart rate regular rhythm, no murmur [] Lungs & Thorax: Bilateral breath sounds clear to auscultation [] Abdomen: Tenderness in the left upper and left lower quadrant Skin: Warm, dry, no erythema, no rash. [] Back: No tenderness, no CVA tenderness. [] Extremities: No tenderness, no cyanosis, no clubbing, ROM intact, no edema. [] Neurologic: Alert and oriented X 3, normal motor function, normal sensory function, no focal deficits noted. [] Psychologic: Affect normal, judgement normal, mood normal. [] Current Patient Data: Labs: Laboratory Tests Test 12/23/21 04:23 White Blood Count 8.2 x10^3/uL (4.0-11.0) Red Blood Count 4.73 x10^6/uL (4.30-5.70) Hemoglobin 14.9 g/dL (13.0-17.5) Hematocrit 43.9 % (39.0-53.0) Mean Corpuscular Volume 93 fL (79-100) Mean Corpuscular Hemoglobin 32 pg (25-35) Mean Corpuscular Hemoglobin Concent 34 g/dL (31-37) Red Cell Distribution Width 14.4 % (11.5-14.5) Platelet Count 177 x10^3/uL (140-400) Neutrophils (%) (Auto) 77 % (31-73) H Lymphocytes (%) (Auto) 12 % (24-48) L Monocytes (%) (Auto) 8 % (0-9) Eosinophils (%) (Auto) 3 % (0-3) Basophils (%) (Auto) 1 % (0-3) Neutrophils # (Auto) 6.3 x10^3/uL (1.8-7.7) Lymphocytes # (Auto) 1.0 x10^3/uL (1.0-4.8) Monocytes # (Auto) 0.6 x10^3/uL (0.0-1.1) Eosinophils # (Auto) 0.2 x10^3/uL (0.0-0.7) Basophils # (Auto) 0.1 x10^3/uL (0.0-0.2) Sodium Level 143 mmol/L (136-145) Potassium Level 3.4 mmol/L (3.5-5.1) L Chloride Level 107 mmol/L (98-107) Carbon Dioxide Level 24 mmol/L (21-32) Anion Gap 12 (6-14) Blood Urea Nitrogen 12 mg/dL (8-26) Creatinine 1.0 mg/dL (0.7-1.3) Estimated GFR (Cockcroft-Gault) 91.0 BUN/Creatinine Ratio 12 (6-20) Glucose Level 130 mg/dL (70-99) H Calcium Level 8.6 mg/dL (8.5-10.1) Total Bilirubin 0.6 mg/dL (0.2-1.0) Aspartate Amino Transferase (AST) 18 U/L (15-37) Alanine Aminotransferase (ALT) 32 U/L (16-63) Alkaline Phosphatase 72 U/L (46-116) Troponin I High Sensitivity 8 ng/L (4-75) AN-Qor-X-Type Natriuretic Peptide 38 pg/mL (0-124) Total Protein 6.9 g/dL (6.4-8.2) Albumin 3.5 g/dL (3.4-5.0) Albumin/Globulin Ratio 1.0 (1.0-1.7) Lipase 88 U/L (73-393) Laboratory Tests 12/23/21 04:23 Laboratory Tests 12/23/21 04:23 Vital Signs: Vital Signs Date Time Temp Pulse Resp B/P (MAP) Pulse Ox O2 Delivery O2 Flow Rate FiO2 12/23/21 05:52 26 97 Room Air 12/23/21 04:53 68 164/80 12/23/21 03:54 98.8 98.8 EKG: EKG: [] Radiology/Procedures: Radiology/Procedures: [] Course & Med Decision Making: Course & Med Decision Making Pertinent Labs and Imaging studies reviewed. (See chart for details) [] Dragon Disclaimer: Dragon Disclaimer: This electronic medical record was generated, in whole or in part, using a voice recognition dictation system. Departure Departure Impression: Primary Impression: Abdominal pain Additional Impression: Diverticulitis large intestine Disposition: HOME / SELF CARE / HOMELESS Condition: STABLE Referrals: Keiry TOUSSAINT MD (PCP) Patient Instructions: Diverticulitis, [id number] Scripts Amoxicillin/Potassium Clav (AUGMENTIN 875-125 TABLET) 1 Each Tablet 1 TAB PO TID for 5 Days, #15 TAB 0 Refills Prov: FATIMAH MERCER MD 12/23/21 FATIMAH MERCER MD December 23, 2021 06:35
[2021-12-23] MEDS ORDERED: ACET1TAB56 PO (06:40)
[2021-12-23 06:46] VITALS: BP 125/61
--- NOTE | 2021-12-24 10:14 | EKG ---
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
== END 2021-12-23 07:02 | disposition home or self-care (01) ==
LOC: ER 03:53
DX: K57.32 Diverticulitis of large intestine without perforation or abscess without bleeding (principal); R07.89 Other chest pain; G89.29 Other chronic pain; F17.200 Nicotine dependence, unspecified, uncomplicated
CPT/HCPCS: 36415; 71045; 74176; 80053; 83690; 83880; 84484; 85025; 93005; 96374; 99285; J2270